=== PATIENT | male | born 1975 | race Caucasian/White ===

== ENCOUNTER 2022-05-05 13:14 | Outpatient (CLI) | payer MEDICARE, SELFPAY | END 2022-05-05 13:15 | disposition home or self-care (01) | PROVIDERS: Visit Provider Neurological Surgery | DX: M51.26 Other intervertebral disc displacement, lumbar region (principal); Z01.818 Encounter for other preprocedural examination | CPT/HCPCS: 36415; 86850; 86900; 86901 ==

== ENCOUNTER 2022-05-17 01:54 | Day surgery (SDC) | payer MEDICARE, SELFPAY ==
[2022-05-04 11:16] VITALS: BMI 36.5
--- NOTE | 2022-05-04 11:48 | PC.NURSE ---
Report to the Outpatient Waiting Room, entrance under the green pavilion located off [facility], at time 0600 on date _05/17/22. Planned Procedure Time: 0730. Time changes happen often and if your time is changed the preop area will call you the afternoon before. - You and your visitor will be asked to self-screen and do not enter if you have any COVID symptoms. - Only one visitor is requested with a max of two and NO children visitors are allowed at this time. - The patient visitor may be requested to leave or wait in car when not with patient due to distancing restrictions. - A mask is optional within the hospital at this time. Patients may have clear liquids (water, carbonated beverages, clear teas, apple juice) until 3 hours prior to surgery with a maximum of 20 ounces. - No food from midnight until time of surgery - Infants may have breast milk until 4 hours before surgery, formula 6 hours prior to surgery. - Children will be allowed to drink immediately following surgery. If applicable, please bring a bottle or sippy cup to assist with drinking. Juice, water, soda, and popsicles are readily available. For infants on formula, please bring formula the day of surgery. Pacifiers are allowed. Take the following medications with a SIP of water the morning of surgery: _gabapentin_ DO NOT STOP ANY OF YOUR OTHER PRESCRIPTION MEDICATIONS PRIOR TO SURGERY ?EXCEPT THE FOLLOWING Medications to discontinue per physician _vitamins Date to take last dose_05/14/22 Please no make-up, nail maltese, hairspray, perfume, deodorant, or body powder the day of surgery. No jewelry (including any body piercings) or valuables the day of surgery, leave them at home. Please take a shower or bath the night before, or the morning of, surgery with an antibacterial soap. Wear comfortable, loose fitting clothing. Children are encouraged to wear pajamas. - Jewelry must be removed prior to entering the operating room. Rings and piercings that are not removed may be cut off. - The hospital will not accept responsibility for valuables. - Please leave all valuables, including medications, at home the day of surgery. If you are going home after surgery, a licensed transport truck driver must drive you home. - NO public transportation without another adult if you receive anesthesia. - We recommend that an adult stay with you for 24 hours following discharge. - We also recommend that you do not drive, make important decision, drink alcoholic beverages, or take any drugs that were not prescribed by your health care provider for at least 24 hours after your discharge time. For Pediatric surgeries, we recommend two adults accompany the child home. Follow any additional instructions given to you from your surgeon. If you or anyone in your household have experienced Covid symptoms in the past week, please notify your surgeon or the nurse liaison at the phone number below for possible testing. Telephone instructions given to Adolfo Ruiz and asked if any additional questions and then verbalized understanding. Patient advised to call surgeon office or pre surgery nurse liaison [phone] if any additional questions.
[2022-05-17] VITALS (13 sets, daily range): BP systolic 100–147; BP diastolic 53–86; PULSE 78–92; RESP 12–17; TEMP 36.1–36.5; O2SAT 90–100
--- NOTE | ~2022-05-17 | XR_ITS ---
EXAMINATION: XR fluoroscopy no charge DATE: 05/17/2022 09:44 INDICATION: Herniated disc at L3-L4. TECHNIQUE: A single intraoperative lateral fluoroscopic view of the lumbar spine was obtained. I was not present. Fluoroscopy exposure time was 3 seconds. COMPARISON: None. FINDINGS: There is an instrument overlying the posterior elements at L3. IMPRESSION: 1. Instrument overlying the posterior elements at L3. Reviewed, dictated and finalized at location A. ARC OPERATOR
[2022-05-17] MEDS: LACTATED RINGERS 1,000 ML 30 ML IV CONT ×2 (06:35→10:50)
--- NOTE | 2022-05-17 07:05 | P.PNAN_ITS ---
Anes - Initial Pre Proc Eval Procedure: Operation Date: 05/17/22 07:30 Proposed Procedures p Right L3-4 Far Lateral Microdiscectomy - Jesus Warren MD Date/Time: 05/17/22 07:05 Surgeon: Jesus Warren MD Pre Op Diagnosis: Right L3-4 Far Lateral Herniated Disc Patient Data Age: 46 Gender: M Height: 1.73 m Weight: 103.6 kg Last Vital Signs Temp 97.7 F 05/17/22 06:40 Pulse 79 05/17/22 06:40 Resp 16 05/17/22 06:40 BP 123/86 05/17/22 06:40 Pulse Ox 98 05/17/22 06:40 O2 Del Method Room Air 05/17/22 06:40 Allergies Allergy/AdvReac Type Severity Reaction Status Date / Time adhesive Allergy Mild Rash Verified 03/07/22 13:25 iodine Allergy Mild Rash Verified 03/07/22 13:25 NSAIDS (Non-Steroidal AdvReac Severe Anaphylaxis Verified 05/04/22 11:50 Anti-Inflamma Home Medications Medication Instructions Recorded Confirmed Type alprazolam 0.5 mg tablet 0.5 mg PO QHS PRN Anxiety 01/10/22 05/17/22 History gabapentin 400 mg capsule 400 mg PO BID 01/10/22 05/17/22 History hydrocodone 2.5 mg-acetaminophen 1 tablet PO QHS PRN Pain 01/10/22 05/17/22 History 325 mg tablet meclizine 25 mg tablet 25 mg PO BID PRN Vertigo 01/10/22 05/17/22 History rosuvastatin 10 mg tablet 10 mg PO DAILY 01/10/22 05/17/22 History montelukast 10 mg tablet 10 mg PO DAILY 05/04/22 05/17/22 History multivitamin,yu-ywoj-dxmqictc 1 tablet PO DAILY 05/04/22 05/17/22 History Patient hx anesthesia problems: none Family hx anesthesia problems: none Results Review: All pre-operative results and documents have been reviewed as part of the pre- operative evaluation. [facility] Past Medical History Medical History Anxiety Asthma High cholesterol Family History Family History Other Asthma Depression Heart disease Hypertension Social History Social History Smoking status: Current some day smoker Smokeless tobacco user: chewing tobacco Alcohol intake: never Substance use: never Substance use type: does not use Living arrangements: with family Spiritual care concerns: No Anes - Eval Final PreProcedure Day of Procedure 05/17/22 07:05 Patient weight: obese Heart: regular rate and rhythm Lungs: clear to auscultation Airway: Mallampati scale class II Neurological: alert and oriented Last oral intake: >/= 8 hours ASA classification: III Emergent: no Anesthetic plan: proceed Anesthesia type and monitoring: general ETT and standard monitoring Results Review: All pre-operative results and documents have been reviewed as part of the pre- operative evaluation. Informed Consent: The patient's anesthetic plan and its attendant risks and benefits were discussed with the patient/family/POA. Questions were solicited and answers prov ided to the satisfaction of the patient/family/POA.
--- NOTE | 2022-05-17 07:38 | PM.IMHP ---
H&P: HPI History of Present Illness Date/Time: 05/17/22 07:38 Chief Complaint: Adolfo is a 46-year-old gentleman with back and leg pain related to disc herniation in the foramen on the right at L3-4 presents for L3-4 far lateral microscopic lumbar diskectomy. He has not changed appreciably since we last saw him. He is not having any bowel or bladder difficulty. He is not have specific muscle group weakness or dermatomal numbness. Review of Systems Review of Systems: Patient denies shortness of breath, cough, fever, chills, nausea, vomiting, weight loss, weight gain, chest pain, dysuria. He has back and leg pain as above. His review of systems otherwise negative on 12 systems except as noted elsewhere. [facility] Past Medical History Medical History Anxiety Asthma High cholesterol Family History Family History Other Asthma Depression Heart disease Hypertension Social History Social History Smoking status: Current some day smoker Smokeless tobacco user: chewing tobacco Alcohol intake: never Substance use: never Substance use type: does not use Living arrangements: with family Spiritual care concerns: No Meds Home Medications and Allergies Home Medications Medication Instructions Recorded Confirmed Type alprazolam 0.5 mg tablet 0.5 mg PO QHS PRN Anxiety 01/10/22 05/17/22 History gabapentin 400 mg capsule 400 mg PO BID 01/10/22 05/17/22 History hydrocodone 2.5 mg-acetaminophen 1 tablet PO QHS PRN Pain 01/10/22 05/17/22 History 325 mg tablet meclizine 25 mg tablet 25 mg PO BID PRN Vertigo 01/10/22 05/17/22 History rosuvastatin 10 mg tablet 10 mg PO DAILY 01/10/22 05/17/22 History montelukast 10 mg tablet 10 mg PO DAILY 05/04/22 05/17/22 History multivitamin,vc-hemr-tszrfchg 1 tablet PO DAILY 05/04/22 05/17/22 History Allergies Allergy/AdvReac Type Severity Reaction Status Date / Time adhesive Allergy Mild Rash Verified 03/07/22 13:25 iodine Allergy Mild Rash Verified 03/07/22 13:25 NSAIDS (Non-Steroidal AdvReac Severe Anaphylaxis Verified 05/04/22 11:50 Anti-Inflamma Vital Signs Vital Signs - 24 hr 05/17/22 06:40 Temperature 97.7 F Pulse Rate 79 Respiratory Rate 16 Blood Pressure 123/86 Pulse Oximetry 98 Oxygen Delivery Room Air Exam Narrative: Strength is 5 5 in all muscle groups of bilateral lower extremities. Sensation is intact to light touch throughout the lower extremities. Breathing is nonlabored. He speaks in complete sentences without difficulty. Regular rate and rhythm Assessment and Plan Assessment and plan (1) Lumbar disc herniation: Code(s): M51.26 - Other intervertebral disc displacement, lumbar region Status: Acute Assessment and Plan: Adolfo is a 46-year-old gentleman with back and leg pain related to a disc herniation presents for right L3-4 far lateral foraminotomy and microdiskectomy. I again described to him that operation, its risks, potential benefits, the operative postoperative course in detail and answered all his questions personally. He indicates understanding and elects proceed with the operation.
--- NOTE | 2022-05-17 07:40 | WPDHPUPDATE1 ---
History and Physical Update Update Date/Time: 05/17/22 07:40 History and Physical has been reviewed, including an updated exam of the patient. There are NO changes in the patient's condition. Risks, benefits, and alternatives have been discussed and questions answered. Patient agrees to proceed with procedure.
[2022-05-17] MEDS: ceFAZolin 2 GM/D5W 50 ML 2 GM/50 ML BAG IVPB (07:47)
[2022-05-17] MEDS: LIDO 1%/EPINEPHRINE 1:100,000 20 ML VIAL 10 ML INFILTRATE (08:31)
--- NOTE | 2022-05-17 09:17 | P.OP_ITS ---
Procedure Note - Detailed Date of Procedure 05/17/22 Pre-op Diagnosis Right L3-4 Far Lateral Herniated Disc Post-op Diagnosis Same Procedure Performed Right L3-4 far lateral microscopic lumbar diskectomy Surgeon Jesus Warren MD Anesthesia General Description of Procedure the patient was brought to the operating room in the supine position, was sedated, intubated and placed under general anesthesia in routine fashion. He was then turned into the prone position on a Mayo frame. The area of operatio n on his back was examined, marked for incision, prepped and draped in routine sterile fashion. Incision was marked over the L3 and L4 spinous processes in the midline. This area was injected with 0.5% lidocaine with [id number] epinephrine. Intravenous antibiotics given prior to incision. Incision was made with a 10 blade scalpel down to the lumbodorsal fascia. A subperiosteal dissection of muscle soft tissue away from the spinous process and lamina on the right at L3-4 was performed with a subperiosteal elevator and Bovie cautery. A verifying x-rays obtained to verify the level of operation. A Midas Gaetano drill was used to resect the lateral pars and facet until the soft contents of the foramen were encountered. Under microscopy the yellow ligament was lifted and removed piecemeal using Kerrison punches. This exposed the nerve root below. This was reflected superiorly. The disc spaces entered using 11 blade scalpel. Much of the disc herniation was found to be calcified. The refore curved curette, Cardenas rongeur, pituitary rongeur and Reuben curette were used to push free and removed fragments of hard disc herniation from beneath the nerve. These were removed using a rongeur as. These maneuvers were performed until a nerve hook could be placed proximally and distally to confirm lack of compression. The wound was then copiously irrigated with bacitracin irrigation all bleeding stopped with bipolar and Bovie cautery and Gelfoam thrombin powder. Wound was then closed in layered fashion with 2-0 Vicryl interrupted sutures in the lumbodorsal fascia and Aj's layer. 3-0 Vicryl buried interrupted sutures were placed in the dermis and the skin was closed with a running 4-0 Monocryl subcuticular stitch and dressed with Dermabond. The patient was allowed to wake up in the operating room and was taken to the recovery room in stable condition. There were no immediate complications of this operation. All counts were reported correct at the end of the case. Blood loss was 25 cc. The patient is neurologically at his baseline postoperatively. CPT codes: 53071 Estimated Blood Loss 25 IV Fluids 1,000 Complications None Condition Stable Disposition PACU [facility] Billing Surgery - Charge Forward: Surgery Billing
[2022-05-17] MEDS: fentaNYL CITRATE INJ (*CRX) 100 MCG/2 ML VIAL 25 MCG IV PUSH ×4 (09:53→10:04)
--- NOTE | 2022-05-17 10:00 | SUR.PHASEI ---
1000: Simple mask removed.
[2022-05-17] MEDS: oxyCODONE HCL (*CRX) 5 MG TAB IR PO (11:06)
--- NOTE | 2022-05-17 11:35 | SUR.PHASEI ---
Patient having trouble maintaining 02 Sats above 90% on R.A. Dr. English said to try an I.S. and give it more time. Dr. Scotts aware and said just let him know if patient needs to be admitted.
--- NOTE | 2022-05-17 12:09 | SUR.PHASEII ---
DR. ALTAMIRANO AWARE THAT PATIENT'S OXYGEN SAT'S ARE >95% ON RA X 10 MINUTES. WILL CONTINUE TO MONITOR X 10 MINUTES AND SEND HOME IF SATURATIONS REMAIN >95%.
== END 2022-05-17 12:41 | disposition home or self-care (01) ==
PROVIDERS: Visit Provider Neurological Surgery
PROC: (CPT 63030; principal; 2022-05-17 07:30)
DX: M51.26 Other intervertebral disc displacement, lumbar region (principal); J45.909 Unspecified asthma, uncomplicated; F41.9 Anxiety disorder, unspecified; E78.00 Pure hypercholesterolemia, unspecified; F17.220 Nicotine dependence, chewing tobacco, uncomplicated; E66.9 Obesity, unspecified; Z68.34 Body mass index [BMI] 34.0-34.9, adult
CPT/HCPCS: 63056; 36415; 86850; 86900; 86901; 99199; A9270; J0330; J0690; J1100; J1170; J1200; J2250; J2405; J2704; J2710; J3010; J7120

== ENCOUNTER 2023-07-11 12:59 | Outpatient (CLI) | payer MEDICARE, SELFPAY ==
--- NOTE | ~2023-07-11 | XR_ITS ---
XR lumbar spine min 4V 07/11/2023 13:20 Indication: Radiculopathy. Back pain. Procedure: 4 views lumbar spine including flexion/extension views Comparison: No prior studies for comparison. Findings: Normal lumbar lordosis. No alteration of alignment with flexion/extension. There is disc na rrowing at all lumbar levels, most advanced at L3-4 and L5-S1. No acute fracture, subluxation or spon dylolisthesis. There are ventral osteophytes at multiple levels. There is hypertrophy of the spinous processes of the mid and lower lumbar spine. Mild levoscoliosis. There are cholecystectomy clips. Ped icles intact. Impression: 1: Moderate lumbar spondylosis with levoscoliosis. Reviewed, dictated and finalized at location A. Impression: 1: Moderate lumbar spondylosis with levoscoliosis.
== END 2023-07-11 13:00 | disposition home or self-care (01) ==
LOC: ANHIMG 13:01
PROVIDERS: Visit Provider Neurological Surgery
DX: M51.26 Other intervertebral disc displacement, lumbar region (principal); M54.16 Radiculopathy, lumbar region; M43.06 Spondylolysis, lumbar region; M41.86 Other forms of scoliosis, lumbar region
CPT/HCPCS: 72110

== ENCOUNTER 2024-12-20 12:56 | Outpatient (CLI) | payer MEDICARE, SELFPAY ==
--- OUTSIDE RECORDS SUMMARY | 2024-12-20 13:01 | XMS_ITS | Encounter Summary ---
Author Organization [facility] Address [address] [facility] [place] [address] Phone Care Team Providers Care Striker Off Name Role Phone Adam Paul MD Primary Care Provider [phone] Robby Salinas MD Unavailable Rayshawn Umanzor MD Unavailable [phone] Ra Shell MD Unavailable Reason for Visit * Reason Comments Medication Refill Encounter Details Date Type Department Care Team (Late st Contact Info) Description 02/18/2021 Refill [facility] - Family Medicine [facility] [address] [place] [id number] Adam Paul MD [address] [address] Medication Refill Social History Tobacco Use Types Packs/Day Years Used Date Smoking Tobacco: Never Smokeless Tobacco: Current Chew Comments:one can a day, sinc e 1995 Alcohol Use Standard Drinks/Week Comments Not Currently 0 (1 standard drink = 0.6 oz pur e alcohol) rare PHQ-2 Answer Date Recorded Total Score - Questions 1-9 0 11/02 Sexually Active Control Partners Comments Yes Female Sex and Gender Information Value Date Recorded Sex Assigned at Not on file Legal Sex Male 9:58 PM CDT Gender Identity Not on file Sexual Orientation Not on file COVID-19 Exposure Response Date Recorded In the last month, have you been in contact with someone who was confirmed or suspected to have Coronavirus / COVID-19? No / Unsure 01/26/2021 8:13 AM CDT documented as of this encounter Miscellaneous Notes * Telephone Encounter - Lisbeth Kapoor RN - 02/18/2021 11:57 AM CST Medication failed the protocol, provider to review and approve the medication order if appropriate. Requested Prescriptions Pending Prescriptions Disp Refills gabapentin (NEURONTIN) 400 MG Capsule [Pharmacy Med Name: GABAPENTIN 400 MG CAPSULE] 90 Capsule 5 Sig: TAKE 1 CAPSULE BY MOUTH THREE TIMES A DAY Not Delegated - Anticonvulsants Protocol Failed - 02/18/2021 11:21 AM Failed - This refill cannot be delegated Passed - Visit with relevant provider in past 12 months or upcoming 90 days Recent Visits Date Type Provider Dept 01/22/21 Office Visit Adam Paul MD [facility] 10/22/20 Office Visit Adam Paul MD [facility] 03/09/20 Office Visit Adam Paul MD [facility] Showing recent visits within past 365 days and meeting all other requirements Future Appointments Date Type Provider Dept 04/28/21 Appointment Adam Paul MD [facility] Showing future appointments within next 90 days and meeting all other requirements 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 documented in this encounter Plan of Treatment Upcoming Encounters Date Type Department Care Team (Late st Contact Info) Description 12/23/2024 11:15 AM CDT Office [facility] - [place] [address] [facility] [place] [address] Adam Paul MD [id number] [place] [address] 01/31/2025 11:45 AM CDT [facility] [address] [facility] [place] [phone] Rayshawn Umanzor MD [address] [facility] [address] [place] [address] documented as of this encounter Visit Diagnoses Not on filedocumented in this encounter Additional Health Concerns Assessment Noted Time PHQ-9 Depression Total Score: 0 11/26/19 20 9:00 AM CDT documented as of this encounter Care Teams Striker Off Relationship Specialty Start Date End Date Adam Paul MD [address] [facility] [address] [place] [address] PCP - General Family Medicine 02/19/15 Robby Salinas MD [address] [facility] [address] [place] [address] Consulting Physician Orthopaedic Sports Medicine 04/18/16 Rayshawn Umanzor MD [address] [facility] [address] [place] [address] Consulting Physician Urology 03/17/23 Ra Shell MD [facility] [facility] [address] [place] [address] Consulting Physician Colon and Rectal Surgery 06/08/23 documented as of this encounter
--- OUTSIDE RECORDS SUMMARY | 2024-12-20 13:01 | XMS_ITS | Encounter Summary ---
Author Organization [facility] Address [address] [facility] [facility] [place] [place] [address] Phone Care Team Providers Care Bonbon Cream Warmer Name Role Phone Adam Paul MD Primary Care Provider [phone] Robby Salinas MD Unavailable Rayshawn Umanzor MD Unavailable [phone] Ra Shell MD Unavailable Reason for Visit * Reason Comments Medication Refill Encounter Details Date Type Department Care Team (Late st Contact Info) Description 06/25/2021 Refill [facility] - Family Medicine [facility] [address] [place] [phone] Adam Paul MD [address] [address] Medication Refill Social History Tobacco Use Types [...] have Coronavirus / COVID-19? 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 Requested Prescriptions Pending Prescriptions Disp Refills ALPRAZolam (XANAX) 0.5 MG Tablet [Pharmacy Med Name: ALPRAZOLAM 0.5 MG TABLET] 90 Tablet 0 Sig: TAKE 1 TABLET BY MOUTH 3 TIMES DAILY NEEDED FOR ANXIETY. Not Delegated - Off Protocol Failed - 06/25/2021 9:58 AM Failed - This refill cannot be delegated Passed - Visit with relevant provider in past 12 months or upcoming 90 days Recent Visits Date Type Provider Dept 04/28/21 Office Visit Adam Paul MD [facility] 01/22/21 Office Visit Adam Paul MD [facility] 10/22/20 Office Visit Adam Paul MD [facility] Showing recent visits within past 365 days and meeting all other requirements Future Appointments Date Type Provider Dept 07/28/21 Appointment Adam Paul MD [facility] Showing future appointments within next 90 days and meeting all other requirements documented in this encounter Plan of Treatment Upcoming Encounters Date Type Department Care Team (Late st Contact Info) Description 12/23/2024 11:15 AM CDT Office Visit [facility] - Family Medicine - [place] [address] [place] [address] Adam Paul MD [address] [facility] [address] [place] [address] 01/31/2025 11:45 AM CDT [facility] [address] [place] [address] Rayshawn Umanzor MD [address] [facility] [address] [place] [address] documented as of this encounter Visit Diagnoses Diagnosis Anxiety Anxiety state, unspecified documented in this encounter Additional Health Concerns Assessment Noted Time PHQ-9 Depression Total Score: 0 11/26/19 20 9:00 AM CDT documented as of this encounter Care Teams Bonbon Cream Warmer Relationship Specialty Start Date End Date Adam Paul MD [address] [facility] [facility] [address] [place] [address] PCP - General Family Medicine 02/19/15 Robby Salinas MD [address] [facility] [address] [place] [address] Consulting Physician Orthopaedic Sports Medicine 04/18/16 Rayshawn Umanzor MD [address] [facility] [address] [place] [address] Consulting Physician Urology 03/17/23 Ra Shell MD [address] [facility] [address] [place] [address] Consulting Physician Colon and Rectal Surgery 06/08/23 documented as of this encounter
--- OUTSIDE RECORDS SUMMARY | 2024-12-20 13:01 | XMS_ITS | Encounter Summary ---
Author Organization [facility] Address [address] [facility] [place] [address] Phone Care Team Providers Care Activities Therapist Name Role Phone Adam Paul MD Primary Care Provider [phone] Robby Salinas MD Unavailable Rayshawn Umanzor MD Unavailable [phone] Ra Shell MD Unavailable Reason for Visit * Reason Comments Medication Refill Encounter Details Date Type Department Care Team (Late st Contact Info) Description 03/20/2021 Refill [facility] - Family Medicine [facility] #2 [place] [phone] Edison Sy, OIL DRILLER, JOINTER OPERATOR #[address] [address] Medication Refill Social History Tobacco Use Types [...] on file Sexual Orientation Not on file documented as of this encounter Miscellaneous Notes * Telephone Encounter - Lisbeth Kapoor RN - 03/22/2021 3:20 PM CST PDMP 12/23/20 Medication failed the protocol, provider to review and approve the medication order if appropriate. Requested Prescriptions Pending Prescriptions Disp Refills ALPRAZolam (XANAX) 0.5 MG Tablet [Pharmacy Med Name: ALPRAZOLAM 0.5 MG TABLET] 90 Tablet 0 Sig: TAKE 1 TAB BY MOUTH 3 TIMES DAILY NEEDED FOR ANXIETY. 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 Plan of Treatment Upcoming Encounters Date Type Department Care Team (Late st Contact Info) Description 12/23/2024 11:15 AM CDT Office Visit [facility] - Family Medicine - [place] [address] [place] [address] Adam Paul MD [address] [place] [address] 01/31/2025 11:45 AM CDT Office Visit [facility] [address] [place] [address] Rayshawn Umanzor MD [address] [facility] [address] [place] [address] documented as of this encounter Visit Diagnoses Diagnosis Anxiety Anxiety state, unspecified documented in this encounter Additional Health Concerns Assessment Noted Time PHQ-9 Depression Total Score: 0 11/26/19 20 9:00 AM CDT documented as of this encounter Care Teams Activities Therapist Relationship Specialty Start Date End Date Adam Paul MD [address] [facility] [address] [place] [address] PCP - General Family Medicine 02/19/15 Robby Salinas MD [address] [facility] [address] [place] [address] Consulting Physician Orthopaedic Sports Medicine 04/18/16 Rayshawn Umanzor MD [address] [facility] [address] [place] [address] Consulting Physician Urology 03/17/23 Ra Shell MD [address] [facility] [address] [place] [address] Consulting Physician Colon and Rectal Surgery 06/08/23 documented as of this encounter
--- OUTSIDE RECORDS SUMMARY | 2024-12-20 13:01 | XMS_ITS | Encounter Summary ---
Author Organization [facility] Address [address] [facility] [place] [address] Phone Care Team Providers Care Product Development Worker Name Role Phone Adam Paul MD Primary Care Provider [phone] Robby Salinas MD Unavailable Rayshawn Umanzor MD Unavailable [phone] Ra Shell MD Unavailable Reason for Visit * Reason Comments Medication Refill Encounter Details Date Type Department Care Team (Late st Contact Info) Description 06/16/2021 Refill [facility] Medical [facility] - [facility] [place] [phone] Adam Paul MD #[address] [address] Medication Refill Social History Tobacco Use Types [...] COVID-19? No / Unsure 06/09/2021 12:56 PM NETWORK OPERATIONS TECHNICIAN documented as of this encounter Miscellaneous Notes * Telephone Encounter - Lisbeth Kapoor RN - 06/16/2021 11:56 AM CDT Medication warning Per nursing clinical judgement, provider to review and approve the medication(s) order(s) if appropriate. Requested Prescriptions Pending Prescriptions Disp Refills montelukast (SINGULAIR) 10 MG Tablet [Pharmacy Med Name: MONTELUKAST SOD 10 MG TABLET] 90 Tablet 3 Sig: TAKE 1 TABLET BY MOUTH EVERY DAY IN THE EVENING Leukotriene Inhibitors Protocol Passed - 06/16/2021 12:31 AM Passed - Visit with relevant provider in [...] Description 12/23/2024 11:15 AM CDT Office Visit [facility] Medical Group - Family Medicine - [place] [address] [place] [address] Adam Paul MD [address] [place] [address] 01/31/2025 11:45 AM CDT [facility] [address] [place] [address] Rayshawn Umanzor MD [address] [facility] [facility] [address] [place] [address] documented as of this encounter Visit Diagnoses Not on filedocumented in this encounter Additional Health Concerns Assessment Noted Time PHQ-9 Depression Total Score: 0 11/26/19 20 9:00 AM CDT documented as of this encounter Care Teams Product Development Worker Relationship Specialty Start Date End Date Adam Paul MD [address] [facility] [address] [place] [address] PCP - General Family Medicine 02/19/15 Robby Salinas MD #[address] [facility] [address] [place] [address] Consulting Physician Orthopaedic Sports Medicine 04/18/16 Rayshawn Umanzor MD [address] [facility] [address] [place] [address] Consulting Physician Urology 03/17/23 Ra Shell MD [address] [facility] [address] [place] [address] Consulting Physician Colon and Rectal Surgery 06/08/23 documented as of this encounter
--- OUTSIDE RECORDS SUMMARY | 2024-12-20 13:01 | XMS_ITS | Clinical Summary ---
Author Organization [facility] Address [address] [facility], [address] [address] Phone Care Team Providers Care Math Teacher Name Role Phone Adam Paul MD Primary Care Provider [phone] Robby Salinas MD Unavailable Rayshawn Umanzor MD Unavailable [phone] Ra Shell MD Unavailable Allergies Active Allergy Reactions Criticality Noted Date Comments Aspirin Anaphylaxis High Ibuprofen Hives,Swelling 04/20/2015 Throat swells shut Naproxen Hives,Swelling 04/20/2015 Throat swells shut Nsaids Hives,Swelling High 08/20/2015 Throat swells shut Other Itching Low 05/13/2016 Skin glue made skin red & itchy Skin glue made skin red & itchy Skin glue made skin red & itchy Skin glue made skin red & itchy Skin glue made skin red & itchy Povidone Iodine Hives,Rash Medium 04/06/2017 Blisters Blisters Blisters Tobramycin-Dexamethasone Rash Medium Tolmetin Hives,Swelling High 08/20/2015 Throat swells shut Throat swells shut Throat swells shut Throat swells shut Throat swells shut Throat swells shut Throat swells shut Throat swells shut Medications Naloxone HCl 4 MG/0.1ML Liquid 1 [place] by Nasal route as needed. 11/11/19 21 Active HYDROcodone-acet aminophen (NORCO) 10-325 MG Tablet 3 times daily. CHRONIC PAIN 11/24/19 23 Active montelukast (SINGULAIR) 10 MG Tablet TAKE 1 TABLET BY MOUTH EVERY DAY IN THE EVENING 90 Tablet 3 05/29/19 24 Active omeprazole (PriLOSEC) 20 MG CAPSULE DELAYED RELEASEIndicatio ns:Esophagitis TAKE 1 CAPSULE BY MOUTH EVERY DAY 90 Capsule 1 09/20/19 24 Active albuterol 108 (90 Base) MCG/ACT Aerosol SolutionIndicati ons:Mild intermittent asthma without complication take 1-2 Puffs by inhalation every 6 hours as needed for Wheezing. 6.7 g 2 11/28/19 24 Active meclizine (ANTIVERT) 25 MG Tablet TAKE 1 TABLET BY MOUTH EVERY 12 HOURS NEEDED FOR DIZZINESS OR NAUSEA. 60 Tablet 1 12/09/19 24 Active gabapentin (NEURONTIN) 400 MG Capsule TAKE 1 CAPSULE BY MOUTH THREE TIMES A DAY 90 Capsule 2 05/14/19 25 Active desmopressin (DDAVP) 0.2 MG Tablet Take 1 Tablet by mouth nightly. Limit intake of liquids after the evening meal. 90 Tablet 3 06/05/19 25 Active rOPINIRole (REQUIP) 0.25 MG Tablet TAKE 1 TABLET BY MOUTH EVERY DAY AT NIGHT 90 Tablet 1 10/10/19 25 Active clotrimazole-bet amethasone (LOTRISONE) 1-0.05 % Cream APPLY TOPICALLY TWICE DAILY FOR 2 WEEKS FOR SCROTAL ITCHING 30 g 12/13/19 25 Active tamsulosin (FLOMAX) 0.4 MG CapsuleIndicatio ns:BPH with obstruction/lowe r urinary tract symptoms TAKE 1 CAPSULE BY MOUTH EVERY DAY 90 Capsule 3 12/19/19 25 Active rosuvastatin (CRESTOR) 10 MG Tablet TAKE 1 TABLET BY MOUTH EVERY DAY 90 Tablet 3 12/19/19 25 Active tamsulosin (FLOMAX) 0.4 MG CapsuleIndicatio ns:BPH with obstruction/lowe r urinary tract symptoms TAKE 1 CAPSULE BY MOUTH EVERY DAY 90 Capsule 3 12/20/19 24 025 Discontinued rosuvastatin (CRESTOR) 10 MG Tablet TAKE 1 TABLET BY MOUTH EVERY DAY 90 Tablet 3 12/20/19 24 025 Discontinued clotrimazole-bet amethasone (LOTRISONE) 1-0.05 % Cream APPLY TOPICALLY TWICE DAILY FOR 2 WEEKS FOR SCROTAL ITCHING 30 g 04/16/19 25 025 Discontinued Active Problems Problem Noted Date Diagnosed Date Nausea 03/13/2024 Gastroesophageal reflux disease 03/13/2024 RLS (restless legs syndrome) 03/13/2024 Low testosterone 05/04/2023 BPH with obstruction/lower urinary tract symptom s 12/26/2022 Enlarged prostate 12/26/2022 Esophagitis 09/18/2022 Asbestos exposure 08/03/2022 Daytime sleepiness 08/03/2022 Bilateral hearing loss 07/28/2021 Tinnitus of both ears 07/28/2021 Vertigo 07/28/2021 Noncompliance 07/28/2021 Fatigue 01/22/2021 Decreased libido 01/22/2021 Prostate pain 03/10/2020 Chronic pain syndrome 11/26/2019 Rectal pain 11/26/2019 Mild intermittent asthma without complication Wheezing 04/18/2019 Chronic narcotic dependence 04/18/2019 Moderate persistent asthma 04/18/2019 Chronic neck pain 06/05/2018 Chronic joint pain 06/05/2018 Obesity (BMI 30-39.9) 01/31/2018 Chronic narcotic use 06/30/2017 Chronic prescription benzodiazepine use 07/01/19 18 Tobacco abuse 05/25/2016 Right rotator cuff tendonitis 05/13/2016 Elevated liver enzymes 05/06/2016 Chronic right shoulder pain 05/06/2016 Spinal cord lesion 04/18/2016 Carpal tunnel syndrome 04/18/2016 Cervical spondylosis 04/18/2016 Kidney stone 08/20/2015 History of kidney stones 07/27/2015 Adjustment disorder with mixed anxiety and depre ssed mood 07/09/2015 Insomnia 07/09/2015 Hyperlipidemia 05/28/2015 Anxiety 05/14/2015 B12 deficiency 05/14/2015 Vitamin D deficiency 05/14/2015 Encounters Date Type Department Care Team Description 12/17/2024 Refill [facility] #2 [place] [phone] Adam Paul MD Medication Refill 11/27/2024 Refill [facility] #2 [place] [address] Rayshawn Umanzor MD Medication Refill 10/08/2024 Refill [facility] #2 [place] [address] Adam Paul MD Medication Refill from Last 3 Months Immunizations Immunization Administration Dates Next Due Influenza Vaccine greater than 3 yrs 01/11/2020 Influenza Vaccine, Quadrivalent, PF 01/11/2020 Influenza, Seasonal, Injectable, Undefined 01/10 Family History Medical History Relation Name Comments Anxiety disorder Daughter Congestive Heart Failure Father Heart Attack Father Heart Surgery Father Hypertension Father No Known Problems Half-Brother 1 mary carmen No Known Problems Half-Brother 2 jennifer Diabetes Half-Sister 1 Johanna No Known Problems Half-Sister 2 obi Breast Cancer Maternal Aunt Cancer Maternal Grandmother Lung Cancer Maternal Grandmother Stroke Maternal Uncle Anxiety disorder Mother Hypertension Mother Heart Disease Paternal Grandfather Heart Disease Paternal Grandmother Anxiety disorder Son 1 Anxiety disorder Son 2 Relation Name Status Comments Daughter Alive Father Alive Half-Brother 1 mary carmen Alive Half-Brother 2 jennifer Alive Half-Sister 1 Johanna Alive Half-Sister 2 obi Alive Maternal Aunt Maternal Grandmother Maternal Uncle Mother Alive Paternal Grandfather Paternal Grandmother Son 1 Alive Son 2 Alive Social History Tobacco Use Types Packs/Day Years Used Date Smoking Tobacco: Never Smokeless Tobacco: Current Chew Tobacco Cessation:Ready to Q uit: No; Counseling Given: Yes Comments:one can a day, since 1995 Alcohol Use Standard Drinks/Week Comments Not Currently 0 (1 standard drink = 0.6 oz pur e alcohol) rare [facility] Utilities Answer Date Recorded In the past 12 months has [employer], gas, oil, or water [employer] threatened to shut off services in your home? No 05/04/2023 Social Connection and Isolation Panel Answer Date Recorded In a typical week, how many times do you talk on the phone with family, friends, or neighbors? More than three times a week 05/04/2023 How often do you get togethe r with friends or relatives? Twice a week 05/04/2023 Attends Anglican Services Not on file 05/04 Do you belong to any clubs o r organizations such as jehovah's witness groups, unions, fraternal or athletic groups, or school groups? No 05/04/2023 Attends Club or Organization Meetings Not on julio e 05/04/2023 Marital Status Not on file 05/04/2023 AUDIT-C Answer Date Recorded Q1: How often do you have a drink containing alc ohol? 2-4 times a month 05/04/2023 Q2: How many drinks containi ng alcohol do you have on a typical day when you are drinking? 1 or 2 05/04/2023 Q3: How often do you have si x or more drinks on one occasion? Never 05/04/2023 Overall Financial Resource Strain (CARDIA) Answe r Date Recorded How hard is it for you to pa y for the very basics like food, housing, medical care, and heating? Not hard at all 05/04/2023 PHQ-2 Answer Date Recorded Total Score - Questions 1-9 0 05/05 [facility] - Occupational Stress Questionnaire Answer Date Recorded Do you feel stress - tense, restless, nervous, or anxious, or unable to sleep at night because your mind is troubled all the time - these days? Not at all 05/04/2023 Exercise Vital Sign Answer Date Recorde d On average, how many days pe r week do you engage in moderate to strenuous exercise (like a brisk walk)? 0 days Minutes of Exercise per Session Not on file 05/04/2023 Hunger Vital Sign Answer Date Recorded Within the past 12 months, y ou worried that your food would run out before you got the money to buy more. Never true 05/04/19 24 Within the past 12 months, t he food you bought just didn't last and you didn't have money to get more. Never true 05/04/2023 PRAPARE - Transportation Answer Date Re corded In the past 12 months, has l ack of transportation kept you from medical appointments or from getting medications? No 04/2023 In the past 12 months, has l ack of transportation kept you from meetings, work, or from getting things needed for daily living? No 05/04/2023 Housing Stability Vital Sign Answer Rafael e Recorded In the last 12 months, was t here a time when you were not able to pay the mortgage or rent on time? No 05/04/2023 In the last 12 months, how many places have you lived? 1 05/04/2023 In the last 12 months, was t here a time when you did not have a steady place to sleep or slept in a fpc (including now)? No 05/04/2023 Education Answer Date Recorded What is the highest level of school you have completed or the highest degree you have received? 12th grade 08/03/2022 Sexually Active Control Partners Comments Yes Female Sex and Gender Information Value Date Recorded Sex Assigned at Not on file Legal Sex Male 9:58 PM CDT Gender Identity Not on file Sexual Orientation Not on file Last Filed Vital Signs Vital Sign Reading Time Taken Comments Blood Pressure 120/86 05/27/2024 8:11 AM INVESTMENT BANKING ANALYST Pulse 97 05/27/2024 8:11 AM INVESTMENT BANKING ANALYST Temperature 36.3 C (97.3 F) 05/27/2024 8:11 AM INVESTMENT BANKING ANALYST Respiratory Rate 16 05/27/2024 8:11 AM INVESTMENT BANKING ANALYST Oxygen Saturation 99% 05/27/2024 8:11 AM INVESTMENT BANKING ANALYST Inhaled Oxygen Concentration - - Weight 112.5 kg (248 lb) 05/27/2024 8:11 AM INVESTMENT BANKING ANALYST Height 170.2 cm (5' 7) 05/27/2024 8:11 AM INVESTMENT BANKING ANALYST Body Mass Index 38.84 05/27/2024 8:11 AM INVESTMENT BANKING ANALYST Plan of Treatment Upcoming Encounters Date Type Department Care Team (Late st Contact Info) Description 12/23/2024 11:15 AM CDT Office Visit [facility] - [place] [address] [place] [address] Adam Paul MD [address] [address] 01/31/2025 11:45 AM CDT [facility] [address] [place] [phone] Rayshawn Umanzor MD #2 [facility] [address] [place] [address] Health Maintenance Due Date Last Done Comments Hepatitis C Virus (HCV) Screening 1973 TdaP Immunization 1973 Hepatitis B Immunization (1 of 3 - 19+ 3-dose series) 1992 Pneumococcal Immunization (5 0+ years) (1 of 2 - PCV) 1992 Cologuard 2018 Colonoscopy 2018 Colorectal Cancer Screening 2018 Immunochemical Fecal Occult Blood 2018 Zoster Immunization (1 of 2) 10/05/2023 Influenza Immunization (#1) 12/02/202401/01, 01/11/2020, 01/11/2020 SARS-COV-2 Immunization ( - 2023- season) 2024 Respiratory Syncytial Virus (RSV) Immunization (Adult) (1 - 1-dose 75+ series) 2048 Human Papillomavirus (HPV) Immunization Aged Out No longer eligible b ased on patient's age to complete this topic Meningococcal Immunization (ACWY) Aged Out No longer eligible b ased on patient's age to complete this topic Rotavirus Immunization Aged Out No lo nger eligible based on patient's age to complete this topic Insurance MEDICARE [facility] Advance Directives * Full Code (Latest Code Status on File) Date Activated Date Inactivated Comments 05/13/2016 5:37 AM 05/13/2016 1:14 PM CPR-Full Gustavo atment: FULL ARREST: Attempt Resuscitation/CPR wit intubation and mechanical ventilation. PRE-ARREST: Use entire range of life support measures to stabilize the patient. Care Teams Math Teacher Relationship Specialty Start Date End Date Adam Paul MD #[address] [facility] [address] [place] [address] PCP - General Family Medicine 02/19/15 Robby Salinas MD #[address] [facility] [address] [place] [address] Consulting Physician Orthopaedic Sports Medicine 04/18/16 Rayshawn Umanzor MD #2 [facility] [address] [place] [address] Consulting Physician Urology 03/17/23 Ra Shell MD #[address] [facility] [address] [place] [address] Consulting Physician Colon and Rectal Surgery 06/08/23
--- OUTSIDE RECORDS SUMMARY | 2024-12-20 13:02 | XMS_ITS | Encounter Summary ---
Author Organization [facility] Address [address] [facility] [place] [address] Phone Care Team Providers Care Coconut Jelly Roller Name Role Phone Adam Paul MD Primary Care Provider [phone] Robby Salinas MD Unavailable Rayshawn Umanzor MD Unavailable [phone] Ra Shell MD Unavailable Reason for Visit * Reason Comments Medication Refill Encounter Details Date Type Department Care Team (Late st Contact Info) Description 09/20/2023 Refill [facility] - Family Medicine [facility] #2 [place] [phone] Adam Paul MD #[address] [address] Medication Refill Social History Tobacco Use Types Packs/Day Years Used Date Smoking Tobacco: Never Smokeless Tobacco: Current Chew Comments:one can a day, sinc e 1995 Alcohol Use Standard Drinks/Week Comments Not Currently 0 (1 standard drink = 0.6 oz pur e alcohol) rare [facility] Utilities Answer Date Recorded In the past 12 months has th e electric, gas, oil, or water company threatened to shut off services in your home? No 05/04/2023 Social Connection and Isolation Panel Answer Date Recorded In a typical week, how many times do you talk on the phone with family, friends, or neighbors? More than three times a week 05/04/2023 How often do you get togethe r with friends or relatives? Twice a week 05/04/2023 Attends Episcopal Services Not on file 05/04 Do you belong to any clubs o r organizations such as sikh groups, unions, fraternal or athletic groups, or [...] Total Score - Questions 1-9 0 11/02 [facility] of Occupat ional Health - Occupational Stress [...] place to sleep or slept in a [place] facility (including now)? No 05/04/2023 Education Answer Date [...] Telephone Encounter - Lisbeth Kapoor RN - 09/20/2023 9:16 AM CDT Medication(s) refilled and signed per [facility] Chronic Medication Refill Standing Order for Pediatricand Adult Patients. Requested Prescriptions Pending Prescriptions Disp Refills omeprazole (PriLOSEC) 20 MG CAPSULE DELAYED RELEASE [Pharmacy Med Name: OMEPRAZOLE DR 20 MG CAPSULE] 90 Capsule 1 Sig: TAKE 1 CAPSULE BY MOUTH EVERY DAY Proton Pump Inhibitors Protocol Passed - 09/20/2023 12:41 AM Passed - Visit with relevant provider in past 12 months or upcoming 90 days Recent Visits Date Type Provider Dept 05/04/23 Office Visit Adam Paul MD [facility] 02/02/23 Telemedicine Adam Paul MD [facility] 12/26/22 Office Visit [facility] Showing recent visits within past 365 days and meeting all other requirements Future Appointments Date Type Provider Dept 11/16/23 Appointment Adam Paul MD [facility] [address] Showing future appointments within next 90 days and meeting all other requirements documented in this encounter Plan of Treatment Upcoming Encounters Date Type Department Care Team (Late st Contact Info) Description 12/23/2024 11:15 AM CDT Office Visit [facility] - Family Medicine - [place] #[address] [facility] [place] [address] Adam Paul MD [facility] [address] [place] [address] 01/31/2025 11:45 AM CDT Office Visit [facility] [place] [address] Rayshawn Umanzor MD [address] [facility] [address] [place] [address] documented as of this encounter Visit Diagnoses Diagnosis Esophagitis Esophagitis, unspecified documented in this encounter Additional Health Concerns Assessment Noted Time PHQ-9 Depression Total Score: 0 11/26/19 20 9:00 AM CDT documented as of this encounter Care Teams Coconut Jelly Roller Relationship Specialty Start Date End Date Adam Paul MD [address] [place] [address] PCP - General Family Medicine 02/19/15 Robby Salinas MD [address] [place] [address] Consulting Physician Orthopaedic Sports Medicine 04/18/16 Rayshawn Umanzor MD #[address] [facility] [address] [place] [address] Consulting Physician Urology 03/17/23 Ra Shell MD #[address] [address] Consulting Physician Colon and Rectal Surgery 06/08/23 documented as of this encounter
--- OUTSIDE RECORDS SUMMARY | 2024-12-20 13:02 | XMS_ITS | Encounter Summary ---
Author Organization [facility] Address [address] [facility] [place] [address] Phone Care Team Providers Care Catalog Specialist Name Role Phone Adam Paul MD Primary Care Provider [phone] Robby Salinas MD Unavailable Rayshawn Umanzor MD Unavailable [phone] Ra Shell MD Unavailable Reason for Visit * Reason Comments Medication Refill Encounter Details Date Type Department Care Team (Late st Contact Info) Description 03/16/2020 Refill [facility] - Family Medicine [facility] #2 [place] [phone] Adam Paul MD #[address] [address] Medication Refill Social History Tobacco Use Types Packs/Day Years Used Date Smoking Tobacco: Never Smokeless Tobacco: Current Chew Comments:20 years Alcohol Use Standard Drinks/Week Comments Yes 1 (1 standard drink = 0.6 oz pur [...] have Coronavirus / COVID-19? No / Unsure 03/09/2020 9:32 AM WILDLIFE BIOLOGY TECHNICIAN documented as of this encounter Miscellaneous Notes * Telephone Encounter - Lisbeth Kapoor RN - 03/16/2020 2:23 PM CST Medication failed the protocol, provider to review and approve the medication order if appropriate. Requested Prescriptions Pending Prescriptions Disp Refills tiZANidine (ZANAFLEX) 4 MG Tablet [Pharmacy Med Name: TIZANIDINE HCL 4 MG TABLET] 60 Tab 0 Sig: TAKE 1 TABLET BY MOUTH TWICE A DAY Not Delegated - Analgesics: Muscle Relaxants Failed - 03/16/2020 9:44 AM Failed - This refill cannot be delegated Passed - Valid encounter within last 6 months Past Office Visits Recent Outpatient Visits 1 week ago Chronic joint pain [facility] Adam Veras MD 3 months ago Rectal pain [facility] Veras MD 11 months ago Anxiety [facility] Adam Veras MD 1 year ago Chronic neck pain [facility] Adam Veras MD 1 year ago Nausea [facility] Adam Veras MD Upcoming Appointments Future Appointments In 2 months Adam Paul MD [facility] Artie Peterson [facility] GLUING CREW LEADER - Recent and Past Visits Recent Visits Date Type Provider Dept 03/09/20 Office Visit Adam Paul MD [facility] 11/26/19 Office Visit Adam Paul MD [facility] 04/18/19 [facility] recent visits within past 460 days with a meds authorizing provider and meeting all other requirements Future Appointments Date Type Provider Dept 06/09/20 Appointment Adam Paul MD [facility] [address] Showing future appointments within next 90 days with a meds authorizing provider and meeting all other requirements LIFE BIOLOGY TECHNICIAN documented in this encounter Plan of Treatment Upcoming Encounters Date Type Department Care Team (Late st Contact Info) Description 12/23/2024 11:15 AM CDT Office Visit [facility] Medical Group - Family Medicine - [place] [address] [place] [address] Adam Paul MD [facility] [address] [place] [address] 01/31/2025 11:45 AM CDT Office Visit [facility] PHYSICIAN [facility] #[address] [facility] [place] [address] Rayshawn Umanzor MD [address] [facility] [address] [place] [address] documented as of this encounter Visit Diagnoses Not on filedocumented in this encounter Additional Health Concerns Assessment Noted Time PHQ-9 Depression Total Score: 0 11/26/19 20 9:00 AM CDT documented as of this encounter Care Teams Catalog Specialist Relationship Specialty Start Date End Date Adam Paul MD [facility] [address] [place] [address] PCP - General Family Medicine 02/19/15 Robby Salinas MD [facility] [address] [place] [address] Consulting Physician Orthopaedic Sports Medicine 04/18/16 Rayshawn Umanzor MD #2 [address] [facility] [address] [place] [address] Consulting Physician Urology 03/17/23 Ra Shell MD #[address] [facility] [address] [place] [address] Consulting Physician Colon and Rectal Surgery 06/08/23 documented as of this encounter
--- OUTSIDE RECORDS SUMMARY | 2024-12-20 13:02 | XMS_ITS | Encounter Summary ---
Author Organization [facility] Address [address] [facility] [place] [address] Phone Care Team Providers Care Egg Buyer Name Role Phone Adam Paul MD Primary Care Provider [phone] Robby Salinas MD Unavailable Rayshawn Umanzor MD Unavailable [phone] Ra Shell MD Unavailable Reason for Visit * Reason Comments Medication Refill Encounter Details Date Type Department Care Team (Late st Contact Info) Description 01/27/2023 Refill [facility] Medical Group - Family Medicine [facility] #2 [place] [phone] Adam Paul MD #[address] [address] Medication Refill Social History Tobacco Use Types Packs/Day Years Used Date Smoking Tobacco: Never Smokeless Tobacco: Current Chew Comments:one can a day, sinc e 1995 Alcohol Use Standard Drinks/Week Comments Not Currently 0 (1 standard drink = 0.6 oz pur e alcohol) rare PHQ-2 Answer Date Recorded Total Score - Questions 1-9 0 11/02 Education Answer Date Recorded What is the [...] Telephone Encounter - Lisbeth Kapoor RN - 01/27/2023 5:09 PM CDT Medication failed the protocol, provider to review and approve the medication order if appropriate. Requested Prescriptions Pending Prescriptions Disp Refills pregabalin (LYRICA) 50 MG Capsule [Pharmacy Med Name: PREGABALIN 50 MG CAPSULE] 90 Capsule 0 Sig: TAKE 1 CAPSULE BY MOUTH THREE TIMES A DAY. STOP GABAPENTIN WHILE TAKING. Not Delegated - Anticonvulsants Excluding Benzodiazepines Protocol Failed - 01/27/2023 4:15 PM Failed - This refill cannot be delegated Passed - Visit with relevant provider in past 12 months or upcoming 90 days Recent Visits Date Type Provider Dept 12/26/22 Office Visit Adam Paul MD [facility] 08/03/22 Office Visit Adam Paul MD [facility] Showing recent visits within past 365 days and meeting all other requirements Future Appointments Date Type Provider Dept 03/29/23 Appointment Adam Paul MD [facility] Showing future appointments within next 90 days and meeting all other requirements documented in this encounter Plan of Treatment Upcoming Encounters Date Type Department Care Team (Late st Contact Info) Description 12/23/2024 11:15 AM CDT Office Visit [facility] Medical Group - Family Medicine - [place] [address] [place] [address] Adam Paul MD #[address] [address] 01/31/2025 11:45 AM CDT Office Visit [facility] [address] [place] [address] Rayshawn Umanzor MD #[address] [facility] [address] [place] [address] documented as of this encounter Visit Diagnoses Diagnosis Chronic pain syndrome documented in this encounter Additional Health Concerns Assessment Noted Time PHQ-9 Depression Total Score: 0 11/26/19 20 9:00 AM CDT documented as of this encounter Care Teams Egg Buyer Relationship Specialty Start Date End Date Adam Paul MD #[address] [facility] [address] [place] [address] PCP - General Family Medicine 02/19/15 Robby Salinas MD #[address] [address] [place] [address] Consulting Physician Orthopaedic Sports Medicine 04/18/16 Rayshawn Umanzor MD #[address] [facility] [address] [place] [address] Consulting Physician Urology 03/17/23 Ra Shell MD #2 [address] [facility] [address] [place] [address] Consulting Physician Colon and Rectal Surgery 06/08/23 documented as of this encounter
--- OUTSIDE RECORDS SUMMARY | 2024-12-20 13:02 | XMS_ITS | Encounter Summary ---
Author Organization [facility] Address [address] [facility] [place] [address] Phone Care Team Providers Care Mental Hygiene Consultant Name Role Phone Adam Paul MD Primary Care Provider [phone] Robby Salinas MD Unavailable Rayshawn Umanzor MD Unavailable [phone] Ra Shell MD Unavailable Reason for Visit * Reason Comments Medication Refill Encounter Details Date Type Department Care Team (Late st Contact Info) Description 08/24/2020 [facility] [address] [place] [address] Adam Paul MD #[address] [address] Medication Refill Social History Tobacco Use Types [...] have Coronavirus / COVID-19? No / Unsure 08/12/2020 9:55 AM CDT documented as of this encounter Miscellaneous Notes * Telephone Encounter - Imelda Murcia RN - 08/24/2020 4:16 PM CDT [place] last fill date 07/27/20 Medication failed the protocol, provider to review and approve the medication order if appropriate. Requested Prescriptions Pending Prescriptions Disp Refills Acetaminophen-Codeine 300-60 MG Tablet [Pharmacy Med Name: ACETAMINOPHEN-COD #4 TABLET] 60 Tablet Sig: TAKE 1 TABLET BY MOUTH TWICE A DAY NEEDED FOR MODERATE OR MORE SEVERE PAIN healthfinch Not Delegated - Analgesics: Opioid Agonist Combinations Failed - 08/24/2020 4:16 PM Failed - This refill cannot be delegated Passed - Valid encounter within last 6 months Past Office Visits Recent Outpatient Visits 5 months ago Chronic joint pain [facility] - Adam Veras MD 9 months ago Rectal pain [facility] Adam Veras MD 1 year ago Anxiety [facility] Adam Veras MD 2 years ago Chronic neck pain [facility] Adam Veras MD 2 years ago Nausea [facility] Adam Veras MD Upcoming Appointments 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 Showing future appointments within next 90 days with a meds authorizing provider and meeting all other requirements * Telephone Encounter - Julianne Griffin RN - 08/24/2020 10:51 AM CDT Patient called looking for refill update on tylenol #4, transferred to refill line. documented in this encounter Plan of Treatment Upcoming Encounters Date Type Department Care Team (Late st Contact Info) Description 12/23/2024 11:15 AM CDT [facility] Visit [facility] [place] [address] Adam Paul MD #2 [facility] [address] [place] [address] 01/31/2025 11:45 AM CDT Office Visit [facility] #2 [place] [address] Rayshawn Umanzor MD #2 [facility] [address] [place] [address] documented as of this encounter Visit Diagnoses Diagnosis Chronic pain syndrome documented in this encounter Additional Health Concerns Assessment Noted Time PHQ-9 Depression Total Score: 0 11/26/19 9:00 AM CDT documented as of this encounter Care Teams Mental Hygiene Consultant Relationship Specialty Start Date End Date Adam Paul MD #2 [facility] [address] [place] [address] PCP - General Family Medicine 02/19/15 Robby Salinas MD #2 [facility] [address] [place] [address] Consulting Physician Orthopaedic Sports Medicine 04/18/16 Rayshawn Umanzor MD #2 [facility] [facility] [address] [place] [address] Consulting Physician Urology 03/17/23 Ra Shell MD #2 [address] [facility] [address] [place] [address] Consulting Physician Colon and Rectal Surgery 06/08/23 documented as of this encounter
--- OUTSIDE RECORDS SUMMARY | 2024-12-20 13:02 | XMS_ITS | Encounter Summary ---
Author Organization [facility] Address [address] [facility] [place] [address] Phone Care Team Providers Care Bandmill Operator Name Role Phone Adam Paul MD Primary Care Provider [phone] Robby Salinas MD Unavailable Rayshawn Umanzor MD Unavailable [phone] Ra Shell MD Unavailable Reason for Visit * Reason Comments Medication Refill Encounter Details Date Type Department Care Team (Late st Contact Info) Description 12/26/2019 Refill [facility] - Family Medicine [facility] #2 [place] [phone] Adam Paul MD #[address] [address] Medication Refill Social History Tobacco Use Types Packs/Day Years Used Date Smoking Tobacco: Former Smokeless Tobacco: Current Chew Comments:20 years Alcohol Use Standard Drinks/Week Comments Yes 1 (1 standard drink = 0.6 oz pur e alcohol) 1 a night PHQ-2 Answer Date Recorded Total Score - Questions 1-9 0 11/02 Sex and Gender Information Value Date Recorded Sex Assigned at Not on file Legal Sex Male 9:58 PM CDT Gender Identity Not on file Sexual Orientation Not on file COVID-19 Exposure Response Date Recorded In the last month, have you been in contact with someone who was confirmed or suspected to have Coronavirus / COVID-19? No / Unsure 11/26/2019 8:49 AM CDT documented as of this encounter Miscellaneous Notes * Telephone Encounter - Barbara Blakely RN - 12/27/2019 12:26 PM CDT Medication failed the Protocol, routing to provider to review and approve medication order. Requested Prescriptions Pending Prescriptions Disp Refills tiZANidine (ZANAFLEX) 4 MG Tablet [Pharmacy Med Name: TIZANIDINE HCL 4 MG TABLET] 60 Tab 0 Sig: TAKE 1 TABLET BY MOUTH TWICE A DAY Not Delegated - Analgesics: Muscle Relaxants Failed - 12/26/2019 9:32 AM Failed - This refill cannot be delegated Passed - Valid encounter within last 6 months Past Office Visits Recent Outpatient Visits 1 month ago Rectal pain [facility] - Adam Vears MD 8 months ago Anxiety [facility] Family [facility] - Adam Veras MD 1 year ago Chronic neck pain [facility] Family [facility] - Adam Veras MD 1 year ago Nausea [facility] - Adam Veras MD 1 year ago Chronic right shoulder pain [facility] Cervantes APN, APPLICATION SUPPORT ANALYST Upcoming Appointments COO - Recent and Past Visits Recent Visits Date Type Provider Dept 11/26/19 Office Visit Adam Paul MD [facility] 04/18/19 Office Visit Adam Paul MD [facility] Showing recent visits within past 460 days with a meds authorizing provider and meeting all other requirements Future Appointments No visits were found meeting these conditions. Showing future appointments within next 90 days with a meds authorizing provider and meeting all other requirements documented in this encounter Plan of Treatment Upcoming Encounters Date Type Department Care Team (Late st Contact Info) Description 12/23/2024 11:15 AM CDT Office Visit [facility] - Family Medicine - [place] #[address] [facility] [address] Adam Paul MD #2 [facility] [address] [place] [address] 01/31/2025 11:45 AM CDT Office Visit [facility] UROLOGY #[address] [facility] [place] [address] Rayshawn Umanzor MD #2 [address] [facility] [address] [place] [address] documented as of this encounter Visit Diagnoses Not on filedocumented in this encounter Additional Health Concerns Assessment Noted Time PHQ-9 Depression Total Score: 0 11/26/19 20 9:00 AM CDT documented as of this encounter Care Teams Bandmill Operator Relationship Specialty Start Date End Date Adam Paul MD #2 [facility] [address] [place] [address] PCP - General Family Medicine 02/19/15 Robby Salinas MD #2 [facility] [address] [place] [address] Consulting Physician Orthopaedic Sports Medicine 04/18/16 Rayshawn Umanzor MD #2 [address] [facility] [address] [place] [address] Consulting Physician Urology 03/17/23 Ra Shell MD #2 [facility] [address] [place] [address] Consulting Physician Colon and Rectal Surgery 06/08/23 documented as of this encounter
--- OUTSIDE RECORDS SUMMARY | 2024-12-20 13:02 | XMS_ITS | Encounter Summary ---
Author Organization [facility] Address [address] [facility] [place] [address] Phone Care Team Providers Care Carpet Tile Layer Name Role Phone Adam Paul MD Primary Care Provider [phone] Robby Salinas MD Unavailable Rayshawn Umanzor MD Unavailable [phone] Ra Shell MD Unavailable Reason for Visit * Reason Comments Medication Refill Encounter Details Date Type Department Care Team (Late st Contact Info) Description 01/31/2023 Refill [facility] - Family Medicine [facility] #2 [place] [address] Adam Paul MD #[address] [address] Medication Refill Social History Tobacco Use Types [...] Telephone Encounter - Lisbeth Kapoor RN - 02/01/2023 8:51 AM CDT PDMP Alprazolam 12/29/22 Medication failed the protocol, provider to review and approve the medication order if appropriate. Requested Prescriptions Pending Prescriptions Disp Refills meclizine (ANTIVERT) 25 MG Tablet [Pharmacy Med Name: MECLIZINE 25 MG TABLET] 60 Tablet 1 Sig: TAKE 1 TABLET BY MOUTH EVERY 12 HOURS NEEDED FOR DIZZINESS OR NAUSEA. Not Delegated - Off Protocol Failed - 01/31/2023 2:30 PM Failed - This refill cannot be [...] 90 days and meeting all other requirements ALPRAZolam (XANAX) 0.5 MG Tablet [Pharmacy Med Name: ALPRAZOLAM 0.5 MG TABLET] 90 Tablet 0 Sig: TAKE 1 TABLET BY MOUTH THREE TIMES A DAY NEEDED FOR ANXIETY Not Delegated - Benzodiazepines Protocol Failed - 01/31/2023 2:31 PM Failed - This refill cannot be [...] Appointments Date Type Provider Dept 03/29/23 Appointment [facility]am [facility] Show[facility] future appointments within next 90 days and meeting all other requirements documented in this encounter Plan of Treatment Upcoming Encounters Date Type Department Care Team (Late st Contact Info) Description 12/23/2024 11:15 AM CDT Office Visit [facility] Medical Group - Family Medicine - [place] #[address] [facility] [address] Adam Paul MD [address] [place] [address] 01/31/2025 11:45 AM CDT Office Visit [facility] PH[facility] #2 [place] [address] Rayshawn Umanzor MD #[address] [place] [address] documented as of this encounter Visit Diagnoses Diagnosis Anxiety Anxiety state, unspecified documented in this encounter Additional Health Concerns Assessment Noted Time PHQ-9 Depression Total Score: 0 11/26/19 20 9:00 AM CDT documented as of this encounter Care Teams Carpet Tile Layer Relationship Specialty Start Date End Date Adam Paul MD [address] [place] [address] PCP - General Family Medicine 02/19/15 Robby Salinas MD #[address] [place] [address] Consulting Physician Orthopaedic Sports Medicine 04/18/16 Rayshawn Umanzor MD #2 [facility] [address] [place] [address] Consulting Physician Urology 03/17/23 Ra Shell MD #2 [address] [facility] [address] [place] [address] Consulting Physician Colon and Rectal Surgery 06/08/23 documented as of this encounter
--- OUTSIDE RECORDS SUMMARY | 2024-12-20 13:02 | XMS_ITS | Encounter Summary ---
Author Organization [facility] Address [address] [facility] [place] [address] Phone Care Team Providers Care Last Model Maker Name Role Phone Adam Paul MD Primary Care Provider [phone] Robby Salinas MD Unavailable Rayshawn Umanzor MD Unavailable [phone] Ra Shell MD Unavailable Reason for Visit * Reason Comments Medication Refill Encounter Details Date Type Department Care Team (Late st Contact Info) Description 12/28/[address] [facility] - Family Medicine [facility] #2 [place] [address] Adam Paul MD #[address] [address] Medication Refill Social History Tobacco Use Types [...] Exposure Response Date Recorded In the last 10 days, have yo u been in contact with someone who was confirmed or suspected to have Coronavirus/COVID-19? No / Unsure 12/26/2022 1:19 PM CDT documented as of this encounter Miscellaneous Notes * Telephone Encounter - Gely Santizo RN - 12/29/2022 10:38 AM CDT PDMP dispensed 11/11/22 as 30-day supply Medication failed the protocol, provider to review and approve the medication order if appropriate. Requested Prescriptions Pending Prescriptions Disp Refills ALPRAZolam (XANAX) 0.5 MG Tablet [Pharmacy Med Name: ALPRAZOLAM 0.5 MG TABLET] 90 Tablet 0 Sig: TAKE 1 TABLET BY MOUTH THREE TIMES A DAY NEEDED FOR ANXIETY Not Delegated - Benzodiazepines Protocol Failed - 12/28/2022 12:25 PM Failed - This refill cannot be delegated Passed - Visit with relevant provider in past 12 months or upcoming 90 days Recent Visits Date Type Provider Dept 12/26/22 Office Visit Adam Paul MD [facility] 08/03/22 Office Visit [facility] [place] Showing recent visits within past 365 days and meeting all other requirements Future Appointments Date Type Provider Dept 03/29/23 Appointment Adam Paul MD [facility] Showing future appointments within next 90 days and meeting all other requirements documented in this encounter Plan of Treatment Upcoming Encounters Date Type Department Care Team (Late st Contact Info) Description 12/23/2024 11:15 AM CDT Office [facility] - Family Medicine - [place] #2 [place] [address] Adam Paul MD #2 [address] [facility] [address] [place] [address] 01/31/2025 11:45 AM CDT Office Visit [facility] #[address] [place] [address] Rayshawn Umanzor MD #[address] [facility] [address] [place] [address] documented as of this encounter Visit Diagnoses Diagnosis Anxiety Anxiety state, unspecified documented in this encounter Additional Health Concerns Assessment Noted Time PHQ-9 Depression Total Score: 0 11/26/19 20 9:00 AM CDT documented as of this encounter Care Teams Last Model Maker Relationship Specialty Start Date End Date Adam Paul MD #2 [address] [facility] [address] [place] [address] PCP - General Family Medicine 02/19/15 Robby Salinas MD #2 [address] [facility] [address] [place] [address] Consulting Physician Orthopaedic Sports Medicine 04/18/16 Rayshawn Umanzor MD #[address] [facility] [facility] [address] [place] [address] Consulting Physician Urology 03/17/23 Ra Shell MD #2 [address] [facility] [address] [place] [address] Consulting Physician Colon and Rectal Surgery 06/08/23 documented as of this encounter
--- OUTSIDE RECORDS SUMMARY | 2024-12-20 13:02 | XMS_ITS | Encounter Summary ---
Author Organization [facility] Address [address] [facility] [place] [address] Phone Care Team Providers Care Mink Farmer Name Role Phone Adam Paul MD Primary Care Provider [phone] Robby Salinas MD Unavailable Rayshawn Umanzor MD Unavailable [phone] Ra Shell MD Unavailable Reason for Visit * Reason Comments Medication Refill Encounter Details Date Type Department Care Team (Late st Contact Info) Description 05/26/2023 Refill [facility] [address]2 [place] [phone] Adam Paul MD #[address] [address] Medication Refill Social History Tobacco Use Types Packs/Day Years Used Date Smoking Tobacco: Never Smokeless Tobacco: Current Chew Comments:one can a day, sinc e 1995 Alcohol Use Standard Drinks/Week Comments Not Currently 0 (1 standard drink = 0.6 oz pur e alcohol) rare [facility] Utilities Answer Date Recorded In the past [...] or relatives? Twice a week 05/04/2023 Attends [employer] Services Not on file 05/04 Do you belong to any clubs o r organizations such as caodaism groups, unions, fraternal or athletic groups, or [...] Total Score - Questions 1-9 0 11/02 [facility] - Occupational Stress [...] place to sleep or slept in a senior living (including now)? No 05/04/2023 Education Answer Date [...] Telephone Encounter - Lisbeth Kapoor RN - 05/26/2023 3:26 PM CST Medication failed the protocol, provider to review and approve the medication order if appropriate. Requested Prescriptions Pending Prescriptions Disp Refills meclizine (ANTIVERT) 25 MG Tablet [Pharmacy Med Name: MECLIZINE 25 MG TABLET] 60 Tablet 1 Sig: TAKE 1 TABLET BY MOUTH EVERY 12 HOURS NEEDED FOR DIZZINESS OR NAUSEA. Not Delegated - Off Protocol Failed - 05/26/2023 2:16 PM Failed - This refill cannot be delegated Passed - Visit with relevant provider in past 12 months or upcoming 90 days Recent Visits Date Type Provider Dept 05/04/23 Office Visit Adam Paul MD [facility] 02/02/23 Telemedicine Adam Paul MD [facility] 12/26/22 Office Visit Adam Paul MD [facility] 08/03/22 Office Visit Adam Paul MD [facility] Showing recent visits within past 365 days and meeting all other requirements Future Appointments Date Type Provider Dept 08/07/23 Appointment Adam Paul MD [facility] Showing future appointments within next 90 days and meeting all other requirements rosuvastatin (CRESTOR) 10 MG Tablet [Pharmacy Med Name: ROSUVASTATIN CALCIUM 10 MG TAB] 90 Tablet 1 Sig: TAKE 1 TABLET BY MOUTH EVERY DAY [facility] CoA Reductase Inhibitors Protocol Passed - 05/26/2023 2:16 PM Passed - Visit with relevant provider in past 12 months or upcoming 90 days Recent Visits Date Type Provider Dept 05/04/23 Office Visit Adam Paul MD [facility] 02/02/23 Telemedicine Adam Paul MD [facility] 12/26/22 Office Visit Adam Paul MD [facility] 08/03/22 Office Visit Adam Paul MD [facility] Showing recent visits within past 365 days and meeting all other requirements Future Appointments Date Type Provider Dept 08/07/23 Appointment Adam Paul MD [facility] Showing future appointments within next 90 days and meeting all other requirements Passed - Lipid panel in past 12 months LDL Date Value Ref Range Status 04/07/2023 91 <130 mg/dL Final HDL CHOLESTEROL Date Value Ref Range Status 04/07/2023 36 (L) >40 mg/dL Final CHOLESTEROL Date Value Ref Range Status 04/07/2023 168 <200 mg/dL Final TRIGLYCERIDES Date Value Ref Range Status 04/07/2023 203 (H) <150 mg/dL Final VLDL Date Value Ref Range Status 04/07/2023 41 10 - 50 mg/dL Final CHOL/HDL RATIO Date Value Ref Range Status 04/07/2023 4.7 (H) 0.0 - 4.4 Final NON-HDL CHOLESTEROL Date Value Ref Range Status 04/07/2023 132 (H) <130 mg/dL Final Passed - CMP in past 12 months SODIUM Date Value Ref Range Status 04/07/2023 139 136 - 145 mmol/L Final POTASSIUM Date Value Ref Range Status 04/07/2023 4.2 3.5 - 5.1 mmol/L Final CHLORIDE Date Value Ref Range Status 04/07/2023 105 98 - 107 mmol/L Final CO2, VENOUS Date Value Ref Range Status 04/07/2023 26 22 - 30 mmol/L Final ANION GAP Date Value Ref Range Status 04/07/2023 12.2 <18.0 mmol/L Final GLUCOSE Date Value Ref Range Status 04/07/2023 105 (H) 70 - 99 mg/dL Final BUN Date Value Ref Range Status 04/07/2023 13 9 - 21 mg/dL Final CREATININE, BLOOD Date Value Ref Range Status 04/07/2023 0.72 0.70 - 1.30 mg/dL Final BUN/CREATININE RATIO Date Value Ref Range Status 04/07/2023 18 12 - 20 ratio Final TOTAL PROTEIN Date Value Ref Range Status 04/07/2023 7.5 6.3 - 8.2 g/dL Final ALBUMIN Date Value Ref Range Status 04/07/2023 4.8 3.5 - 5.0 g/dL Final 04/07/2023 4.8 3.5 - 5.0 g/dL Final A/G RATIO Date Value Ref Range Status 04/07/2023 1.8 1.0 - 2.2 Final CALCIUM Date Value Ref Range Status 04/07/2023 9.8 8.7 - 10.5 mg/dL Final T BILI Date Value Ref Range Status 04/07/2023 0.7 0.2 - 1.2 mg/dL Final SGOT (AST) Date Value Ref Range Status 04/07/2023 26 5 - 34 U/L Final SGPT (ALT) Date Value Ref Range Status 04/07/2023 38 0 - 55 U/L Final ALKALINE PHOSPHATASE Date Value Ref Range Status 04/07/2023 79 40 - 150 U/L Final GFR, EST. NONAFRICAN Date Value Ref Range Status 04/07/2023 >60 >=60 Final GFR, EST. Date Value Ref Range Status 04/07/2023 >60 >=60 Final GFR, ESTIMATED Date Value Ref Range Status 04/07/2023 >60 >=60 Final Comment: Creatinine Clearance is the preferred criteria for selecting drug dose adjustments in renally impaired patients. The GFR is provided as additional pertinent clinical information. GFR is reported in mL/min/1.73 sq m. Calculation based on the Chronic Kidney Disease Epidemiology Collaboration (CKD- EPI) equation refitwithout adjustment for race. IS THE PATIENT REQUIRED TO BE FASTING? Date Value Ref Range Status 04/07/2023 No Final T STEAM YACHT documented in this encounter Plan of Treatment Upcoming Encounters Date Type Department Care Team (Late st Contact Info) Description 12/23/2024 11:15 AM CDT [facility]2 [facility] [place] [address] Adam Paul MD [facility]2 [facility] [address] [place] [address] 01/31/2025 11:45 AM CDT Office Visit [facility] [place] [address] Rayshawn Umanzor MD [facility] [address] [place] [address] documented as of this encounter Visit Diagnoses Not on filedocumented in this encounter Additional Health Concerns Assessment Noted Time PHQ-9 Depression Total Score: 0 11/26/19 20 9:00 AM CDT documented as of this encounter Care Teams Mink Farmer Relationship Specialty Start Date End Date Adam Paul MD [facility]2 [facility] [address] [place] [address] PCP - General Family Medicine 02/19/15 Robby Salinas MD [address] [place] [address] Consulting Physician Orthopaedic Sports Medicine 04/18/16 Rayshawn Umanzor MD #2 [facility] [address] [place] [address] Consulting Physician Urology 03/17/23 Ra Shell MD #[address] [address] Consulting Physician Colon and Rectal Surgery 06/08/23 documented as of this encounter
--- OUTSIDE RECORDS SUMMARY | 2024-12-20 13:02 | XMS_ITS | Encounter Summary ---
Author Organization [facility] Address [address] [facility] [place] [address] Phone Care Team Providers Care Sewing Demonstrator Name Role Phone Adam Paul MD Primary Care Provider [phone] Robby Salinas MD Unavailable Rayshawn Umanzor MD Unavailable [phone] Ra Shell MD Unavailable Reason for Visit * Reason Comments Medication Refill Encounter Details Date Type Department Care Team (Late st Contact Info) Description 05/09/2022 Refill [facility] - Family Medicine [facility] [place] [address] Adam Paul MD #[address] [address] Medication Refill Social History Tobacco Use Types [...] encounter Miscellaneous Notes * Telephone Encounter - Rachel Spencer RN - 05/09/2022 10:05 AM AIRLINE FLIGHT ATTENDANT Refill requested too soon. INE FLIGHT ATTENDANT documented in this encounter Plan of Treatment Upcoming Encounters Date Type Department Care Team (Late st Contact Info) Description 12/23/2024 11:15 AM CDT [facility] [place] [address] Adam Paul MD #2 [facility] [address] [place] [address] 01/31/2025 11:45 AM CDT Office Visit [facility] #2 [place] [address] Rayshawn Umanzor MD #2 [facility] [address] [place] [address] documented as of this encounter Visit Diagnoses Not on filedocumented in this encounter Additional Health Concerns Assessment Noted Time PHQ-9 Depression Total Score: 0 11/26/19 20 9:00 AM CDT documented as of this encounter Care Teams Sewing Demonstrator Relationship Specialty Start Date End Date Adam Paul MD #2 [facility] [address] [place] [address] PCP - General Family Medicine 02/19/15 Robby Salinas MD #2 [facility] [address] [place] [address] Consulting Physician Orthopaedic Sports Medicine 04/18/16 Rayshawn Umanzor MD #2 [facility] [address] [place] [address] Consulting Physician Urology 03/17/23 Ra Shell MD #2 [facility] [address] [place] [address] Consulting Physician Colon and Rectal Surgery 06/08/23 documented as of this encounter
--- OUTSIDE RECORDS SUMMARY | 2024-12-20 13:02 | XMS_ITS | Encounter Summary ---
Author Organization [facility] Address [address] [facility] [place] [address] Phone Care Team Providers Care Apple Picker Name Role Phone Adam Paul MD Primary Care Provider [phone] Robby Salinas MD Unavailable Rayshawn Umanzor MD Unavailable [phone] Ra Shell MD Unavailable Reason for Visit * Reason Comments Medication Refill Encounter Details Date Type Department Care Team (Late st Contact Info) Description 06/26/2022 Refill [facility] - Family Medicine [facility] #2 [place] [address] Adam Paul MD #[address] [address] Medication Refill Social History Tobacco Use Types [...] Telephone Encounter - Rachel Spencer RN - 06/27/2022 11:46 AM CDT Medication failed the protocol, provider to review and approve the medication order if appropriate. Requested Prescriptions Pending Prescriptions Disp Refills gabapentin (NEURONTIN) 400 MG Capsule [Pharmacy Med Name: GABAPENTIN 400 MG CAPSULE] 90 Capsule 5 Sig: TAKE 1 CAPSULE BY MOUTH THREE TIMES A DAY Not Delegated - Anticonvulsants Excluding Benzodiazepines Protocol Failed - 06/26/2022 5:22 PM Failed - This refill cannot be delegated Passed - Visit with relevant provider in past 12 months or upcoming 90 days Recent Visits Date Type Provider Dept 07/28/21 Office Visit Adam Paul MD [facility] Showing recent visits within past 365 days and meeting all other requirements Future Appointments Date Type Provider Dept 08/03/22 Appointment Adam Paul MD [facility] Showing future appointments within next 90 days and meeting all other requirements documented in this encounter Plan of Treatment Upcoming Encounters Date Type Department Care Team (Late st Contact Info) Description 12/23/2024 11:15 AM CDT Office Visit [facility] Group - Family Medicine - [place] #2 [place] [address] Adam Paul MD #2 [facility] [address] [place] [address] 01/31/2025 11:45 AM CDT Office Visit [facility] #[address] [place] [address] Rayshawn Umanzor MD #2 [facility] [address] [place] [address] documented as of this encounter Visit Diagnoses Not on filedocumented in this encounter Additional Health Concerns Assessment Noted Time PHQ-9 Depression Total Score: 0 11/26/19 20 9:00 AM CDT documented as of this encounter Care Teams Apple Picker Relationship Specialty Start Date End Date Adam Paul MD #2 [facility] [address] [place] [address] PCP - General Family Medicine 02/19/15 Robby Salinas MD #2 [facility] [address] [place] [address] Consulting Physician Orthopaedic Sports Medicine 04/18/16 Rayshawn Umanzor MD #2 [facility] [address] [place] [address] Consulting Physician Urology 03/17/23 Ra Shell MD #2 [facility] [address] [place] [address] Consulting Physician Colon and Rectal Surgery 06/08/23 documented as of this encounter
--- OUTSIDE RECORDS SUMMARY | 2024-12-20 13:02 | XMS_ITS | Encounter Summary ---
Author Organization [facility] Address [address] [facility] [place] [address] Phone Care Team Providers Care Senior Ios Software Engineer Name Role Phone Adam Paul MD Primary Care Provider [phone] Robby Salinas MD Unavailable Rayshawn Umanzor MD Unavailable [phone] Ra Shell MD Unavailable Reason for Visit * Reason Comments Medication Refill Encounter Details Date Type Department Care Team (Late st Contact Info) Description 08/16/2022 Refill [facility] - [facility] #2 [place] [address] Adam Paul MD #[address] [address] Medication Refill Social History Tobacco Use Types [...] suspected to have Coronavirus/COVID-19? No / Unsure 08/11/2022 11:15 AM CDT documented as of this encounter Miscellaneous Notes * Telephone Encounter - Rosa Mojica RN - 08/17/2022 10:54 AM CDT PDMP 07/04/22 Medication failed the protocol, provider to review and approve the medication order if appropriate. Requested Prescriptions Pending Prescriptions Disp Refills ALPRAZolam (XANAX) 0.5 MG Tablet [Pharmacy Med Name: ALPRAZOLAM 0.5 MG TABLET] 90 Tablet 0 Sig: TAKE 1 TABLET BY MOUTH THREE TIMES A DAY NEEDED FOR ANXIETY Not Delegated - Benzodiazepines Protocol Failed - 08/16/2022 3:35 PM Failed - This refill cannot be delegated Passed - Visit with relevant provider in past 12 months or upcoming 90 days Recent Visits Date Type Provider Dept 08/03/22 Office Visit [facility] [place] Showing recent visits within past 365 days and meeting all other requirements Future Appointments Date Type Provider Dept 11/03/22 Appointment Adam [facility] MD [facility] [place] Showing future appointments within next 90 days and meeting all other requirements documented in this encounter Plan of Treatment Upcoming Encounters Date Type Department Care Team (Late st Contact Info) Description 12/23/2024 11:15 AM CDT Office Visit [facility] - Family Medicine - [place] #[address] [place] [address] Adam Paul MD [address] [address] 01/31/2025 11:45 AM CDT Office Visit [facility] #[address] [place] [address] Rayshawn Umanzor MD [facility] [facility] [address] [place] [address] documented as of this encounter Visit Diagnoses Diagnosis Anxiety Anxiety state, unspecified documented in this encounter Additional Health Concerns Assessment Noted Time PHQ-9 Depression Total Score: 0 11/26/19 20 9:00 AM CDT documented as of this encounter Care Teams Senior Ios Software Engineer Relationship Specialty Start Date End Date Adam Paul MD #[address] [facility] [address] [place] [address] PCP - General Family Medicine 02/19/15 Rboby Salinas MD #[address] [facility] [address] [place] [address] Consulting Physician Orthopaedic Sports Medicine 04/18/16 Rayshawn Umanzor MD #[address] [facility] [address] [place] [address] Consulting Physician Urology 03/17/23 Ra Shell MD #[address] [facility] [address] [place] [address] Consulting Physician Colon and Rectal Surgery 06/08/23 documented as of this encounter
--- OUTSIDE RECORDS SUMMARY | 2024-12-20 13:02 | XMS_ITS | Encounter Summary ---
Author Organization [facility] Address [address] [facility] [address] Phone Care Team Providers Care Puff Iron Operator Name Role Phone Adam Paul MD Primary Care Provider [phone] Robby Salinas MD Unavailable Rayshawn Umanzor MD Unavailable [phone] Ra Shell MD Unavailable Reason for Visit * Reason Comments Medication Refill Encounter Details Date Type Department Care Team (Late st Contact Info) Description 04/21/2022 Refill [facility] - Family Medicine [facility] #2 [place] [phone] Daja Hanley [facility] #2 [place] [address] Medication Refill Social History Tobacco Use Types [...] Telephone Encounter - Lisbeth Kapoor RN - 04/22/2022 7:36 AM CST PDMP 02/22/22 Medication failed the protocol, provider to review and approve the medication order if appropriate. Requested Prescriptions Pending Prescriptions Disp Refills ALPRAZolam (XANAX) 0.5 MG Tablet [Pharmacy Med Name: ALPRAZOLAM 0.5 MG TABLET] 90 Tablet 0 Sig: TAKE 1 TABLET BY MOUTH THREE TIMES A DAY NEEDED FOR ANXIETY Not Delegated - Benzodiazepines Protocol Failed - 04/21/2022 7:28 PM Failed - This refill cannot be delegated Passed - Visit with relevant provider in past 12 months or upcoming 90 days Recent Visits Date Type Provider Dept 07/28/21 Office Visit Adam Paul MD [facility] 04/28/21 Office Visit Adam Paul MD [facility] Showing recent visits within past 365 days and meeting all other requirements Future Appointments No visits were found meeting these conditions. Showing future appointments within next 90 days and meeting all other requirements TESTER documented in this encounter Plan of Treatment Upcoming Encounters Date Type Department Care Team (Late st Contact Info) Description 12/23/2024 11:15 AM CDT Office Visit [facility] Group - Family Medicine - [place] #2 [place] [address] Adam Paul MD #[address] [address] 01/31/2025 11:45 AM CDT Office Visit [facility] #2 [place] [address] Rayshawn Umanzor MD #[facility] [address] [place] [address] documented as of this encounter Visit Diagnoses Diagnosis Anxiety Anxiety state, unspecified documented in this encounter Additional Health Concerns Assessment Noted Time PHQ-9 Depression Total Score: 0 11/26/19 20 9:00 AM CDT documented as of this encounter Care Teams Puff Iron Operator Relationship Specialty Start Date End Date Adam Paul MD [facility] [address] [place] [address] PCP - General Family Medicine 02/19/15 Robby Salinas MD #2 [facility] [address] [place] [address] Consulting Physician Orthopaedic Sports Medicine 04/18/16 Rayshawn Umanzor MD #2 [facility] [address] [place] [address] Consulting Physician Urology 03/17/23 Ra Shell MD #[address] [address] Consulting Physician Colon and Rectal Surgery 06/08/23 documented as of this encounter
--- OUTSIDE RECORDS SUMMARY | 2024-12-20 13:02 | XMS_ITS | Encounter Summary ---
Author Organization [facility] Address [address] [facility] [place] [address] Phone Care Team Providers Care Rolled Oats Mill Operator Name Role Phone Adam Paul MD Primary Care Provider [phone] Robby Salinas MD Unavailable Rayshawn Umanzor MD Unavailable [phone] Ra Shell MD Unavailable Reason for Visit * Reason Comments Medication Refill Encounter Details Date Type Department Care Team (Late st Contact Info) Description 07/03/2020 Refill [facility] - Family Medicine [facility]2 [place] [phone] Adam Paul MD #[address] [address] Medication Refill Social History Tobacco Use Types [...] Telephone Encounter - Lisbeth Kapoor RN - 07/03/2020 2:39 PM CDT [place] PDMP 01/21/20 Medication failed the protocol, provider to review and approve the medication order if appropriate. Requested Prescriptions Pending Prescriptions Disp Refills ALPRAZolam (XANAX) 0.5 MG Tablet [Pharmacy Med Name: ALPRAZOLAM 0.5 MG TABLET] 90 Tablet 0 Sig: TAKE 1 TAB BY MOUTH 3 TIMES DAILY NEEDED FOR ANXIETY. Not Delegated - Psychiatry: Anxiolytics/Hypnotics Failed - 07/03/2020 10:06 AM Failed - This refill cannot be delegated Passed - Valid encounter within last 6 months Past Office Visits Recent Outpatient Visits 3 months ago Chronic joint pain [facility] - Adam Veras MD 7 months ago Rectal pain [facility] - [facility] Veras MD 1 year ago Anxiety [facility] - Adam Veras MD 2 years ago Chronic neck pain [facility] - Adam Veras MD 2 years ago Nausea [facility] - Adam Veras MD Upcoming Appointments Future Appointments In 3 weeks Rick Mcintosh MD [facility], [facility] TELEPHOTO ENGINEER - Recent and Past Visits Recent Visits Date Type Provider Dept 03/09/20 Office Visit Adam Paul MD [facility] 11/26/19 Office Visit Adam Paul MD [facility] 04/18/19 Office Visit Adam Paul MD [facility] Showing recent visits within past 460 days [...] [facility] - [place] #[address] [facility] [place] [place] [address] Adam Paul MD [facility]2 [facility] [address] [place] [address] 01/31/2025 11:45 AM CDT Office Visit [facility] #[address] [facility] [place] [address] Rayshawn Umanzor MD #2 [facility] [address] [place] [address] documented as of this encounter Visit Diagnoses Not on filedocumented in this encounter Additional Health Concerns Assessment Noted Time PHQ-9 Depression Total Score: 0 11/26/19 20 9:00 AM CDT documented as of this encounter Care Teams Rolled Oats Mill Operator Relationship Specialty Start Date End Date Adam Paul MD [facility]2 [facility] [address] [place] [address] PCP - General Family Medicine 02/19/15 Robby Salinas MD [facility]2 [facility] [address] [place] [address] Consulting Physician Orthopaedic Sports Medicine 04/18/16 Rayshawn Umanzor MD #2 [facility] [address] [place] [address] Consulting Physician Urology 03/17/23 Ra Shell MD #[address] [address] Consulting Physician Colon and Rectal Surgery 06/08/23 documented as of this encounter
--- OUTSIDE RECORDS SUMMARY | 2024-12-20 13:02 | XMS_ITS | Encounter Summary ---
Author Organization [facility] Address [address] [facility] [place] [address] Phone Care Team Providers Care Back Gray Cloth Washer Name Role Phone Adam Paul MD Primary Care Provider [phone] Robby Salinas MD Unavailable Rayshawn Umanzor MD Unavailable [phone] Ra Shell MD Unavailable Reason for Visit * Reason Comments Medication Refill Encounter Details Date Type Department Care Team (Late st Contact Info) Description 04/20/2020 Refill [facility] Medical Group - Family Medicine [facility] #2 [place] [phone] Adam Paul MD #[address] [address] Medication Refill Social History Tobacco Use Types [...] Telephone Encounter - Lisbeth Kapoor RN - 04/21/2020 9:41 AM CST Medication failed the protocol, provider to review and approve the medication order if appropriate. Requested Prescriptions Pending Prescriptions Disp Refills Acetaminophen-Codeine 300-60 MG Tablet [Pharmacy Med Name: ACETAMINOPHEN-COD #4 TABLET] 60 Tab 0 Sig: TAKE 1 TAB BY MOUTH 2 TIMES DAILY NEEDED FOR MODERATE OR MORE SEVERE PAIN. Not Delegated - Analgesics: Opioid Agonist Combinations Failed - 04/20/2020 11:19 AM Failed - This refill cannot be delegated Passed - Valid encounter within last 6 months Past Office Visits Recent Outpatient Visits 1 month ago [facility]as [facility] 4 months ago Rectal pain [facility] Adam Veras MD 1 year ago [facility]as MD 1 year ago Chronic neck pain [facility] Adam Veras MD 1 year ago [facility] Veras MD Upcoming Appointments Future Appointments In 6 days Rick Mcintosh MD [facility], [facility] In 1 month Adam Paul MD [facility] CHOKE REAMER - Recent and Past Visits Recent Visits Date Type Provider Dept 03/09/20 Office Visit Adam Paul MD [facility] 11/26/19 Office Visit Adam Paul MD [facility] 04/18/19 Office Visit Adam Paul MD [facility] Showing recent visits within past 460 days with a meds authorizing provider and meeting all other requirements Future Appointments Date Type Provider Dept 06/09/20 Appointment [facility] future appointments within next 90 days with a meds authorizing provider and meeting all other requirements RER TANBARK documented in this encounter Plan of Treatment Upcoming Encounters Date Type Department Care Team (Late st Contact Info) Description 12/23/2024 11:15 AM CDT Office Visit [facility] Medical Group - Family Medicine - [place] [facility] [place] [address] Adam Paul MD #2 [facility] [address] [place] [address] 01/31/2025 11:45 AM CDT Office Visit [facility] #2 [place] [address] Rayshawn Umanzor MD [address] [place] [address] documented as of this encounter Visit Diagnoses Diagnosis Chronic pain syndrome- Primary documented in this encounter Additional Health Concerns Assessment Noted Time PHQ-9 Depression Total Score: 0 11/26/19 20 9:00 AM CDT documented as of this encounter Care Teams Back Gray Cloth Washer Relationship Specialty Start Date End Date Adam Paul MD #[address] [place] [address] PCP - General Family Medicine 02/19/15 Robby Salinas MD [address] [place] [address] Consulting Physician Orthopaedic Sports Medicine 04/18/16 Rayshawn Umanzor MD #2 [facility] [address] [place] [address] Consulting Physician Urology 03/17/23 Ra Shell MD #2 [place] [address] Consulting Physician Colon and Rectal Surgery 06/08/23 documented as of this encounter
--- OUTSIDE RECORDS SUMMARY | 2024-12-20 13:02 | XMS_ITS | Encounter Summary ---
Author Organization [facility] Address [address] [facility] [place] [address] Phone Care Team Providers Care Duck Bill Operator Name Role Phone Adam Paul MD Primary Care Provider [phone] Robby Salinas MD Unavailable Rayshawn Umanzor MD Unavailable [phone] Ra Shell MD Unavailable Reason for Visit * Reason Comments Medication Refill Encounter Details Date Type Department Care Team (Late st Contact Info) Description 05/26/2020 Refill [facility] - Family [facility] #2 [place] [phone] Adam Paul MD #[address] [address] Medication Refill Social History Tobacco Use Types [...] have Coronavirus / COVID-19? No / Unsure 05/27/2020 1:06 PM WAISTBAND SETTER documented as of this encounter Miscellaneous Notes * Telephone Encounter - Imelda Murcia RN - 05/27/2020 9:24 AM CST Medication failed the protocol, provider to review and approve the medication order if appropriate. Requested Prescriptions Pending Prescriptions Disp Refills Acetaminophen-Codeine 300-60 MG Tablet [Pharmacy Med Name: ACETAMINOPHEN-COD #4 TABLET] 60 Tablet 0 Sig: TAKE 1 TAB BY MOUTH 2 TIMES DAILY NEEDED FOR MODERATE OR MORE SEVERE PAIN. Not Delegated - Analgesics: Opioid Agonist Combinations Failed - 05/26/2020 9:36 AM Failed - This refill cannot be delegated Passed - Valid encounter within last 6 months Past Office Visits Recent Outpatient Visits 2 months ago Chronic joint pain [facility] Adam Veras MD 6 months ago Rectal pain [facility] Adam Veras MD 1 year ago Anxiety [facility] Adam Garza MD 1 year ago [facility] MD 2 years ago [facility] Adam Garza MD Upcoming Appointments Future Appointments Today Rick Mcintosh MD [facility], [facility] In 1 week Adam Paul MD [facility] CLINICAL MEDICAL TRANSCRIPTIONIST - Recent and Past Visits Recent Visits Date Type Provider Dept 03/09/20 Office Visit Adam Paul MD [facility] 11/26/19 Office Visit Adam Paul MD [facility] 04/18/19 Office Visit Adam Paul MD [facility] Showing recent visits within past 460 days with a meds authorizing provider and meeting all other requirements Future Appointments Date Type Provider Dept 06/09/20 Appointment Adam Paul MD [facility] Showing future appointments within next 90 days with a meds authorizing provider and meeting all other requirements TBAND SETTER documented in this encounter Plan of Treatment Upcoming Encounters Date Type Department Care Team (Late st Contact Info) Description 12/23/2024 11:15 AM CDT Office Visit [facility] Medical Group - Family Medicine - [place] [address] [facility] [place] [address] Adam Paul MD #2 [facility] [address] [place] [address] 01/31/2025 11:45 AM CDT Office Visit [facility] #2 [facility] [place] [address] Rayshawn Umanzor MD #2 [facility] [address] [place] [address] documented as of this encounter Visit Diagnoses Diagnosis Chronic pain syndrome documented in this encounter Additional Health Concerns Assessment Noted Time PHQ-9 Depression Total Score: 0 11/26/19 20 9:00 AM CDT documented as of this encounter Care Teams Duck Bill Operator Relationship Specialty Start Date End Date Adam aPul MD #2 [facility] [address] [place] [address] PCP - General Family Medicine 02/19/15 Robby Salinas MD #2 [facility] [address] [place] [address] Consulting Physician Orthopaedic Sports Medicine 04/18/16 Rayshawn Umanzor MD #2 [facility] [address] [place] [address] Consulting Physician Urology 03/17/23 Ra Shell MD #2 [facility] [address] [place] [address] Consulting Physician Colon and Rectal Surgery 06/08/23 documented as of this encounter
--- OUTSIDE RECORDS SUMMARY | 2024-12-20 13:02 | XMS_ITS | Encounter Summary ---
Author Organization [facility] Address [address] [facility] [place] [address] Phone Care Team Providers Care Wire Preparation Machine Tender Name Role Phone Adam Paul MD Primary Care Provider [phone] Robby Salinas MD Unavailable Rayshawn Umanzor MD Unavailable [phone] Ra Shell MD Unavailable Reason for Visit * Reason Comments Medication Refill Encounter Details Date Type Department Care Team (Late st Contact Info) Description 05/28/2023 Refill [facility] Medical [facility] - Family Medicine [facility] #2 [place] [address] Adam Paul MD #[address] [address] Medication Refill Social History Tobacco Use Types Packs/Day Years Used Date Smoking Tobacco: Never Smokeless Tobacco: Current Chew Comments:one can a day, sinc e 1995 Alcohol Use Standard Drinks/Week Comments Not Currently 0 (1 standard drink = 0.6 oz pur e alcohol) rare [facility] Utilities Answer Date Recorded In the [...] or relatives? Twice a week 05/04/2023 Attends [employer] Services Not on file 05/04 Do you belong to any clubs o r organizations such as adventism groups, unions, fraternal or athletic groups, or [...] Total Score - Questions 1-9 0 11/02 [facility] - Occupational [...] place to sleep or slept in a retirement (including now)? No 05/04/2023 Education Answer Date [...] Telephone Encounter - Lisbeth Kapoor RN - 05/29/2023 12:43 PM CST Medication warning Per nursing clinical judgement, provider to review and approve the medication(s) order(s) if appropriate. Requested Prescriptions Pending Prescriptions Disp Refills montelukast (SINGULAIR) 10 MG Tablet [Pharmacy Med Name: MONTELUKAST SOD 10 MG TABLET] 90 Tablet 3 Sig: TAKE 1 TABLET BY MOUTH EVERY DAY IN THE EVENING Leukotriene Inhibitors Protocol Passed - 05/28/2023 7:25 AM Passed - Visit with relevant provider in past 12 months or upcoming 90 days Recent Visits Date Type Provider Dept 05/04/23 Office Visit Adam Paul MD [facility] 02/02/23 Telemedicine Adam Paul MD [facility] 12/26/22 Office Visit Adam Paul MD [facility] 08/03/22 Office Visit MohyAdam fields MD [facility] Showing recent visits within past 365 days and meeting all other requirements Future Appointments Date Type Provider Dept 08/07/23 Appointment Adam Paul MD [facility] Showing future appointments within next 90 days and meeting all other requirements CLERK documented in this encounter Plan of Treatment Upcoming Encounters Date Type Department Care Team (Late st Contact Info) Description 12/23/2024 11:15 AM CDT Office Visit [facility] Medical Group - Family Medicine [facility] #[address] [place] [address] Adam Paul MD #2 [facility] [address] [place] [address] 01/31/2025 11:45 AM CDT Office Visit [facility] #[address] [place] [address] Rayshawn Umanzor MD #2 [facility] [address] [place] [address] documented as of this encounter Visit Diagnoses Not on filedocumented in this encounter Additional Health Concerns Assessment Noted Time PHQ-9 Depression Total Score: 0 11/26/19 20 9:00 AM CDT documented as of this encounter Care Teams Wire Preparation Machine Tender Relationship Specialty Start Date End Date Adam Paul MD #2 [facility] [address] [place] [address] PCP - General Family Medicine 02/19/15 Robby Salinas MD #2 [facility] [address] [place] [address] Consulting Physician Orthopaedic Sports Medicine 04/18/16 Rayshawn Umanzor MD #2 [facility] [address] [place] [address] Consulting Physician Urology 03/17/23 Ra Shell MD #2 [facility] [address] [place] [address] Consulting Physician Colon and Rectal Surgery 06/08/23 documented as of this encounter
--- OUTSIDE RECORDS SUMMARY | 2024-12-20 13:02 | XMS_ITS | Encounter Summary ---
Author Organization [facility] Address [address] [facility] [place] [address] Phone Care Team Providers Care Engine Repairer Name Role Phone Adam Paul MD Primary Care Provider [phone] Robby Salinas MD Unavailable Rayshawn Umanzor MD Unavailable [phone] Ra Shell MD Unavailable Reason for Visit * Reason Comments Medication Refill Encounter Details Date Type Department Care Team (Late st Contact Info) Description 03/13/2024 Refill [facility] Medical Group - Family Medicine [facility] #2 [place] [address] Adam Paul MD #[address] [address] Medication Refill Social History Tobacco Use Types Packs/Day Years Used Date Smoking Tobacco: Never Smokeless Tobacco: Current Chew Comments:one can a day, sinc e 1995 Alcohol Use Standard Drinks/Week Comments Not Currently 0 (1 standard drink = 0.6 oz pur e alcohol) rare [facility] Utilities Answer Date Recorded In the past [...] or relatives? Twice a week 05/04/2023 Attends [employer] Not on file 05/04 Do you belong to any clubs o r organizations such as buddhism groups, unions, fraternal or athletic groups, or [...] Total Score - Questions 1-9 0 11/02 [facility]at ional Health - [...] to sleep or slept in a senior care (including now)? No 05/04/2023 Education Answer Date [...] Telephone Encounter - Lisbeth Kapoor RN - 03/15/2024 7:58 AM CST Reordered 03/13/24 OR POLICY ANALYST * Telephone Encounter - Lisbeth Kapoor RN - 03/13/2024 3:07 PM CST duplicate OR POLICY ANALYST documented in this encounter Plan of Treatment Upcoming Encounters Date Type Department Care Team (Late st Contact Info) Description 12/23/2024 11:15 AM CDT Office Visit [facility] - Family Medicine - [place] #[address] [place] [address] Adam Paul MD [address] [address] 01/31/2025 11:45 AM CDT [facility] [place] [address] Rayshawn Umanzor MD #2 [facility] [address] [place] [address] documented as of this encounter Visit Diagnoses Not on filedocumented in this encounter Additional Health Concerns Assessment Noted Time PHQ-9 Depression Total Score: 0 11/26/19 20 9:00 AM CDT documented as of this encounter Care Teams Engine Repairer Relationship Specialty Start Date End Date Adam Paul MD #2 [facility] [address] [place] [address] PCP - General Family Medicine 02/19/15 Robby Salinas MD #2 [facility] [address] [place] [address] Consulting Physician Orthopaedic Sports Medicine 04/18/16 Rayshawn Umanzor MD #[address] [facility] [address] [place] [address] Consulting Physician Urology 03/17/23 Ra Shell MD #2 [facility] [address] [place] [address] Consulting Physician Colon and Rectal Surgery 06/08/23 documented as of this encounter
--- OUTSIDE RECORDS SUMMARY | 2024-12-20 13:02 | XMS_ITS | Encounter Summary ---
Author Organization [facility] Address [address] [facility] [place] [address] Phone Care Team Providers Care Bible Worker Name Role Phone Adam Paul MD Primary Care Provider [phone] Robby Salinas MD Unavailable Rayshawn Umanzor MD Unavailable [phone] Ra Shell MD Unavailable Reason for Visit * Reason Comments Medication Refill Encounter Details Date Type Department Care Team (Late st Contact Info) Description 02/01/2022 Refill [facility] - Family [facility] #2 [place] [address] Adam Paul MD #[address] [address] Medication Refill Social History Tobacco Use Types [...] Telephone Encounter - Rachel Spencer RN - 02/01/2022 9:38 AM CDT Medication failed the protocol, provider to review and approve the medication order if appropriate. Requested Prescriptions Pending Prescriptions Disp Refills albuterol 108 (90 Base) MCG/ACT Aerosol Solution [Pharmacy Med Name: ALBUTEROL HFA (PROVENTIL) INH]2 Sig: take 1-2 Puffs by inhalation every 6 hours as needed for Wheezing. Short Acting Inhaled Beta-Agonists Protocol Passed - 02/01/2022 12:35 AM Passed - Visit with relevant provider in past 12 months or upcoming 90 days Recent Visits Date Type Provider Dept 07/28/21 Office Visit Adam Paul MD [facility] 04/28/21 Office Visit Adam Paul MD [facility] Showing recent visits within past 365 days and meeting all other requirements Future Appointments No visits were found meeting these conditions. Showing future appointments within next 90 days and meeting all other requirements documented in this encounter Plan of Treatment Upcoming Encounters Date Type Department Care Team (Late st Contact Info) Description 12/23/2024 11:15 AM CDT Office Visit [facility] Medical Group - Family Medicine - [place] #[address] [place] [address] Adam Paul MD #2 [facility] [address] [place] [address] 01/31/2025 11:45 AM CDT Office Visit [facility] #2 [place] [address] Rayshawn Umanzor MD #2 [facility] [address] [place] [address] documented as of this encounter Visit Diagnoses Not on filedocumented in this encounter Additional Health Concerns Assessment Noted Time PHQ-9 Depression Total Score: 0 11/26/19 20 9:00 AM CDT documented as of this encounter Care Teams Bible Worker Relationship Specialty Start Date End Date Adam Paul MD #2 [facility] [address] [place] [address] PCP - General Family Medicine 02/19/15 Robby Salinas MD #2 [facility] [address] [place] [address] Consulting Physician Orthopaedic Sports Medicine 04/18/16 Rayshawn Umanzor MD #2 [facility] [address] [place] [address] Consulting Physician Urology 03/17/23 Ra Shell MD #2 [facility] [address] [place] [address] Consulting Physician Colon and Rectal Surgery 06/08/23 documented as of this encounter
--- OUTSIDE RECORDS SUMMARY | 2024-12-20 13:02 | XMS_ITS | Encounter Summary ---
Author Organization [facility] Address [address] [facility] [place] [address] Phone Care Team Providers Care Can Bander Operator Name Role Phone Adam Paul MD Primary Care Provider [phone] Robby Salinas MD Unavailable Rayshawn Umanzor MD Unavailable [phone] Ra Shell MD Unavailable Reason for Visit * Reason Comments Medication Refill Encounter Details Date Type Department Care Team (Late st Contact Info) Description 11/11/2022 Refill [facility] Medical Group - Family Medicine [facility] #2 [place] [phone] Adam Paul MD #[address] [address] Medication Refill Social History Tobacco Use Types [...] Telephone Encounter - Lisbeth Kapoor RN - 11/11/2022 2:19 PM CDT PDMP 10/07/22 Medication failed the protocol, provider to review and approve the medication order if appropriate. Requested Prescriptions Pending Prescriptions Disp Refills ALPRAZolam (XANAX) 0.5 MG Tablet [Pharmacy Med Name: ALPRAZOLAM 0.5 MG TABLET] 90 Tablet 0 Sig: TAKE 1 TABLET BY MOUTH THREE TIMES A DAY NEEDED FOR ANXIETY Not Delegated - Benzodiazepines Protocol Failed - 11/11/2022 10:12 AM Failed - This refill cannot be delegated Passed - Visit with relevant provider in past 12 months or upcoming 90 days Recent Visits Date Type Provider Dept 08/03/22 Office Visit [facility] Showing recent visits within past 365 days and meeting all other requirements Future Appointments Date Type Provider Dept 12/22/22 Appointment Adam Paul MD [facility] Showing future appointments within next 90 days and meeting all other requirements documented in this encounter Plan of Treatment Upcoming Encounters Date Type Department Care Team (Late st Contact Info) Description 12/23/2024 11:15 AM CDT [facility] - [place] [address] [place] [address] Adam Paul MD [address] [address] 01/31/2025 11:45 AM CDT Office Visit [facility] #[address] [place] [address] Rayshawn Umanzor MD #2 [facility] [address] [place] [address] documented as of this encounter Visit Diagnoses Diagnosis Anxiety Anxiety state, unspecified documented in this encounter Additional Health Concerns Assessment Noted Time PHQ-9 Depression Total Score: 0 11/26/19 20 9:00 AM CDT documented as of this encounter Care Teams Can Bander Operator Relationship Specialty Start Date End Date Adam Paul MD #2 [facility] [address] [place] [address] PCP - General Family Medicine 02/19/15 Robby Salinas MD #2 [facility] [address] [place] [address] Consulting Physician Orthopaedic Sports Medicine 04/18/16 Rayshawn Umanzor MD #[address] [facility] [address] [place] [address] Consulting Physician Urology 03/17/23 Ra Shell MD #2 [facility] [address] [place] [address] Consulting Physician Colon and Rectal Surgery 06/08/23 documented as of this encounter
--- OUTSIDE RECORDS SUMMARY | 2024-12-20 13:02 | XMS_ITS | Encounter Summary ---
Author Organization [facility] Address [address] [place] [address] Phone Care Team Providers Care Investigation Officer Name Role Phone Adam Paul MD Primary Care Provider [phone] Robby Salinas MD Unavailable Rayshawn Umanzor MD Unavailable [phone] Ra Shell MD Unavailable Reason for Visit * Reason Comments Medication Refill Encounter Details Date Type Department Care Team (Late st Contact Info) Description 01/16/2020 Refill [facility] - Family Medicine [facility] [place] [address] [place] [id number] Adam Paul MD [address] [address] Medication Refill Social History Tobacco Use Types [...] have Coronavirus / COVID-19? No / Unsure 01/09/2020 11:00 AM CDT documented as of this encounter Miscellaneous Notes * Telephone Encounter - Elodia Simon RN - 01/17/2020 8:07 AM CDT Requested Prescriptions Pending Prescriptions Disp Refills albuterol 108 (90 Base) MCG/ACT Aerosol Solution [Pharmacy Med Name: ALBUTEROL HFA (PROAIR) INHALER] 8.5 Inhaler 0 Sig: INHALE 2 PUFFS BY MOUTH EVERY 4 HOURS NEEDED FOR WHEEZE Pulmonology: Beta Agonists - Albuterol & Levalbuterol Failed - 01/16/2020 1:48 PM Failed - May refill 2 inhalers, 0 refills one time since last office visit. May refill #50 nebulizer vials, 0 refills for albuterol or #48 vials, 0 refills for Xopenex one time since last office visit. Passed - Valid encounter within last 6 months Past Office Visits Recent Outpatient Visits 1 month ago Rectal pain [facility] - Family Medicine - Adam Veras MD 9 months ago Anxiety [facility] - Adam Veras MD 1 year ago Chronic neck pain [facility] - Adam Veras MD 1 year ago Nausea [facility] - Adam Veras MD 1 year ago Chronic right shoulder pain [facility] Cervantes APN, NUT FEEDER 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 Showing future appointments within next 90 days with a meds authorizing provider and meeting all other requirements Passed - Last BP in normal range BP Readings from Last 1 Encounters: 11/26/19 128/68 ALPRAZolam (XANAX) 0.5 MG Tablet [Pharmacy Med Name: ALPRAZOLAM 0.5 MG TABLET] 90 Tab 0 Sig: Take 1 Tab by mouth 3 times daily as needed for Anxiety. 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 Showing recent visits within past 460 days [...] Description 12/23/2024 11:15 AM CDT [facility] [place] [address] Adam Paul MD [address] [address] 01/31/2025 11:45 AM CDT [facility] [address] [place] [address] Rayshawn Umanzor MD [address] [facility] [address] [place] [address] documented as of this encounter Visit Diagnoses Not on filedocumented in this encounter Additional Health Concerns Assessment Noted Time PHQ-9 Depression Total Score: 0 11/26/19 20 9:00 AM CDT documented as of this encounter Care Teams Investigation Officer Relationship Specialty Start Date End Date Adam Paul MD [address] [facility] [address] [place] [address] PCP - General Family Medicine 02/19/15 Robby Salinas MD [address] [facility] [address] [place] [address] Consulting Physician Orthopaedic Sports Medicine 04/18/16 Rayshawn Umanzor MD [address] [facility] [address] [place] [address] Consulting Physician Urology 03/17/23 Ra Shell MD [address] [facility] [address] [place] [address] Consulting Physician Colon and Rectal Surgery 06/08/23 documented as of this encounter
--- OUTSIDE RECORDS SUMMARY | 2024-12-20 13:02 | XMS_ITS | Clinical Summary ---
Author Organization [facility] Address [address] [place] [address] Care Team Providers Care Shuttle Veneering Supervisor Name Role Phone Adam Paul MD Primary Care Provider [phone] Hank Beltran MD Unavailable [phone] Abhishek Apple MD Unavailable [phone] Puma Delgado OT Unavailable Unavailable Peter Dinh Unavailable Allergies Active Allergy Reactions Criticality Noted Date Comments Adhesive Tape-Silicones Itching,Swelling Medium 11/10/2021 Aspirin Anaphylaxis,Itching, Sw elling High Duloxetine Agitation Low 11/10/2020 Ibuprofen Hives,Swelling,Itching High 04/20/2015 Throat swells shut Gum Pgpplr-Lesjnj-Fcpx-Al cohol Blisters High 04/18/2017 DO NOT USE ON SURGICAL SITES Naproxen Hives,Swelling,Itching High 04/20/2015 Throat swells shut Nsaids (Non-Steroidal Anti-Inflammatory Drug) Anaphylaxis High Other Itching Low 05/13/2016 Skin glue made skin red & itchy Skin glue made skin red & itchy Skin glue made skin red & itchy Povidone-Iodine Hives,Rash,Itching,S we lling Medium 04/06/2017 Blisters Blisters Tobramycin-Dexamethas one Rash Medium Tolmetin Hives,Swelling High 08/20/2015 Throat swells shut Throat swells shut Throat swells shut Throat swells shut Throat swells shut Tramadol Itching Low I feel out of it. Medications albuterol HFA (PROVENTIL HFA,VENTOLIN HFA,PROAIR HFA) 90 mcg/actuation inhaler Inhale 2 puffs every 4 (four) hours as needed 8 Active montelukast (SINGULAIR) 10 mg tablet Take 1 tablet (10 mg total) by mouth nightly 0 Active naloxone (NARCAN) 4 mg/actuation spray,non-aeroso l Administer 1 spray into affected nostril(s) as needed for opioid reversal or respiratory depression 1 each 1 Active tamsulosin (FLOMAX) 0.4 mg extended release capsule Take 1 capsule (0.4 mg total) by mouth daily for 5 days 5 capsule 2 Active desmopressin (DDAVP) 0.2 mg tablet Take 1 tablet (200 mcg total) by mouth nightly 1 Active meclizine (ANTIVERT) 25 mg tablet Take 1 tablet (25 mg total) by mouth 2 (two) times a day 2 Active rosuvastatin (CRESTOR) 10 mg tablet Take 1 tablet (10 mg total) by mouth daily 2 Active gabapentin (NEURONTIN) 400 mg capsule Take 1 capsule (400 mg total) by mouth 3 (three) times a day 4 Active rOPINIRole (REQUIP) 0.25 mg tablet Take 1 tablet (0.25 mg total) by mouth nightly 4 Active mupirocin (BACTROBAN) 2 % ointmentIndicati ons:Methicillin- Resistant S. Aureus Nasal Colonization Apply to each nostril once the morning before surgery. Apply a second dose to each nostril the evening of the day before surgery (12 hours after initial application). Apply a third dose to each nostril the morning of surgery 22 g 5 Active apixaban (ELIQUIS) 2.5 mg tablet Take 1 tablet (2.5 mg total) by mouth 2 (two) times a day for 28 days 56 tablet 5 Active ascorbic acid (VITAMIN C) 500 mg tablet,chewable Take 1 tablet/chew tab (500 mg total) by mouth 2 (two) times a day 60 tablet/chew tab 5 Active cholecalciferol (VITAMIN D-3) 2000 unit capsule Take 1 capsule (2,000 Units total) by mouth daily 30 capsule 5 Active ondansetron (ZOFRAN) 4 mg tabletIndication s:Prevention of Post-Operative Nausea and Vomiting Take 1 tablet (4 mg total) by mouth every 6 (six) hours as needed for nausea or vomiting 30 tablet 1 5 Active senna-docusate (PERICOLACE) 8.6-50 mg Take 1 tablet by mouth 2 (two) times a day as needed for constipation 60 tablet 1 5 Active cetirizine (ZyrTEC) 10 mg tablet Take 1 tablet (10 mg total) by mouth daily 30 tablet 5 Active famotidine (PEPCID) 20 mg tablet Take 1 tablet (20 mg total) by mouth 2 (two) times a day 60 tablet 5 Active methylPREDNISolo ne (Medrol, Joesph,) 4 mg Dosepack Take as directed on package 1 packet 5 Active cyclobenzaprine (FLEXERIL) 10 mg tablet Take 1 tablet (10 mg total) by mouth 3 (three) times a day as needed for muscle spasms 45 tablet 1 5 Active oxyCODONE-acetam inophen (PERCOCET) 5-325 mg per tabletIndication s:Pain Take 1 tablet by mouth every 8 (eight) hours as needed for pain 21 tablet 5 Active Active Problems Problem Noted Date Diagnosed Date Primary osteoarthritis of right knee 05/15/2024 Arthritis 09/25/2023 Asthma 09/25/2023 BPH with obstruction/lower urinary tract symptom s 12/26/2022 Esophagitis 09/18/2022 Asbestos exposure 08/03/2022 retirement (current) use of opiate analgesic 11/02 Bilateral hearing loss 07/28/2021 DDD (degenerative disc disease), lumbar 09/22/19 21 Degenerative cervical spinal stenosis 09/15/2020 Degenerative disc disease, cervical 09/15/2020 Cervical radiculopathy 09/15/2020 Chronic bilateral low back pain with right-sided sciatica 09/15/2020 Cervicalgia 09/15/2020 Lumbar radiculopathy 11/15/2019 Chronic narcotic dependence 04/18/2019 Mild intermittent asthma without complication Moderate persistent asthma 04/18/2019 Fx sacrum/coccyx-closed 09/24/2018 Cervical spondylosis with myelopathy 09/24/2018 Other tear of medial meniscu s, current injury, left knee, initial encounter 05/03/2018 Overview (05/03/2018): Added automatically from request for surgery [id number] Obesity (BMI 30-39.9) 01/31/2018 Chronic prescription benzodiazepine use 07/01/19 18 Tear of right rotator cuff 06/29/2017 Overview (06/29/2017): Added automatically from request for surgery [id number] Tobacco abuse 05/25/2016 Right rotator cuff tendonitis 05/13/2016 Chronic right shoulder pain 05/06/2016 Elevated liver enzymes 05/06/2016 Carpal tunnel syndrome 04/18/2016 Cervical spondylosis 04/18/2016 Spinal cord lesion 04/18/2016 Kidney stone 08/20/2015 History of kidney stones 07/27/2015 Adjustment disorder with mixed anxiety and depre ssed mood 07/09/2015 Insomnia secondary to chronic pain 07/09/2015 Hyperlipidemia 05/28/2015 Anxiety 05/14/2015 B12 deficiency 05/14/2015 Vitamin D deficiency 05/14/2015 Ankle pain 09/23/2014 Overview (07/07/2016): Ankle pain Resolved Problems Problem Noted Date Diagnosed Date Resolved Date Lumbar spondylosis with righ t L5 radiculopathy 09/25/2019 11/15/2019 Calculus of gallbladder 05/13/201304/03 Overview (07/06/2016): Gallstones Encounters Date Type Department Care Team Description 11/18/2024 9:15 AM CDT Office Visit [facility] Orthopedics and Sports Medicine [address] [place] [phone] Bryn Mitchell MD Pes anserinus bursitis of right knee (Primary Dx); Contracture of both hamstrings 11/18/2024 Orders Only [facility] Sports Medicine [address] [facility] [address] [place] [address] Bryn Mitchell MD Pes anserinus bursitis of right knee (Primary Dx); Contracture of both hamstrings; Status post total knee replacement, right 10/09/2024 10:40 AM CDT - 10/09/2024 11:59 PM CDT Hospital Encounter [facility] [address] [place] [address] Radiculopathy, lumbar region Discharge Disposition: Discharge to home or self care 09/23/2024 Telephone [facility] Medical [facility] Orthopedics and Sports Medicine [address] [facility] [address] [place] [address] Bryn Mitchell MD from Last 3 Months Surgical History Surgery Date Site/Laterality Comments KNEE SURGERY left knee surgery LAPAROSCOPIC CHOLECYSTECTOMY 04/03/2013 - 04/02/2014 laparoscopic cholecystectomy SHOULDER ARTHROSCOPY 05/04/2016 - 05/31/2016 Right SHOULDER ARTHROSCOPY 11/01/2016 - 12/01/2016 Right FLUORO GUIDED INJECTION HIP RIGHT 10/24/2022 Right LUMBAR PUNCTURE WO INJECTION, DIAGNOSTIC 04/28/2016 N/A MENISCUS SURGERY Bilateral SPINE SURGERY neck disc replacement and back surgery Medical History Medical History Date Comments Asthma Asthma Anxiety Spinal cord lesion (HCC) Dr. Louise lyons, Neurologist at [facility] Migraines Lumbar spondylosis with righ t L5 radiculopathy 09/25/2019 Chronic pain disorder Neck pain Low back pain Family History Medical History Relation Name Comments Cancer Other 1 Family history of Cancer; Heart disease Other 2 Family history of Heart disease; Lung disease Other 3 Family history of Lung problems; Arthritis Other 4 Family history of Arthritis; Other Other 5 Family history of early heart attack, hypertension, cancer and arthritis.; Coronary artery disease Paternal Grandfather Coronary artery disease; Relation Name Status Comments Other 1 Other 2 Other 3 Other 4 Other 5 Paternal Grandfather Social History Tobacco Use Types Packs/Day Years Used Date Smoking Tobacco: Never Smokeless Tobacco: Current Chew Tobacco Cessation:Ready to Q uit: Not Asked; Counseling Given: Not Answered Alcohol Use Standard Drinks/Week Comments Yes 0 (1 standard drink = 0.6 oz pur e alcohol) AUDIT-C Answer Date Recorded Q1: How often do you have a drink containing alcohol? Never 07/30/2024 Q2: How many drinks containi ng alcohol do you have on a typical day when you are drinking? Patient does not drink Q3: How often do you have si x or more drinks on one occasion? Never 07/30/2024 PHQ-2 Answer Date Recorded PHQ-2 Total Score (If total score is 3 or more points, staff should administer the PHQ-9) 0 05/30/2024 PHQ-9 Answer Date Recorded PHQ-9 Total Score 1 05/30/2024 Personal Safety Answer Date Recorded Have you ever been in or are you currently in a harmful physical or emotional relationship or is someone making you feel afraid or unsafe? Denies 06/04/2024 Sex and Gender Information Value Date Recorded Sex Assigned at Not on file Legal Sex Male 11:28 PM IT HELP DESK ASSOCIATE Gender Identity Not on file Sexual Orientation Not on file Obstetrics History Last Filed Vital Signs Vital Sign Reading Time Taken Comments Blood Pressure 120/86 11/18/2024 9:39 AM CDT Pulse 76 11/18/2024 9:39 AM CDT Temperature 36.6 C (97.9 F) 06/04/2024 4:25 PM IT HELP DESK ASSOCIATE Respiratory Rate 18 06/19/2024 9:53 AM CDT Oxygen Saturation 98% 06/04/2024 4:25 PM IT HELP DESK ASSOCIATE Inhaled Oxygen Concentration - - Weight 110.7 kg (244 lb) 11/18/2024 9:39 AM CDT Height 170.2 cm (5' 7) 11/18/2024 9:39 AM CDT Body Mass Index 38.22 11/18/2024 9:39 AM CDT Plan of Treatment Health Maintenance Due Date Last Done Comments Colon Cancer Screening-Colonoscopy 1973 Hepatitis C Screening 1973 Prostate Cancer Screening-PSA 1973 DTaP/Tdap/Td Vaccine (1 - Tdap) 1984 Hepatitis B Screening 10/05/1991 Regular Well Visit/Exam 18-64 10/05/1991 Pneumococcal vaccine <65 (1 of 2 - PCV) 1992 Zoster Vaccine (1 of 2) 10/05/2023 Influenza Vaccine (#1) 2024 01/11/2020 Depression Screening 05/30/2025 05/30/2024, 05/30/2024, 02/27/2024, Additional history exists Goals Goal Patient Goal Type Associated Problems Recent Progress Patient-Stated? Author [facility] Rosalinda Fair, RN Note: Patient will establish a comfort-function goal and identify the pain level that will allow the patient to perform desired activities and achieve an acceptable quality of life. Medical Devices Implanted Type Area Lap Cutter Device Identifier Shelf Expiration Date Model / Serial / Lot Tendon Anchors Implanted:Qty: 4 on 07/20/2017 by Bryn Mitchell MD at [facility] Right: Shoulder [employer] 02/20/2018 2504-1 / 2504-1 / [id number] Bone Anchors (3) Implanted:Qty: 2 on 07/20/2017 by Bryn Mitchell MD at [facility] Right: Shoulder [employer] 05/26/2018 2503-A / 2503-A / [id number] Rotation Medical Reconstituted Collagen Scaffold - Arthroscopic, Large Implanted:Qty: 1 on 07/20/2017 by Bryn Mitchell MD at [facility] Right: Shoulder [employer] 12/31/2018 2169-3 / 2169-3 / [id number] [employer] Attune Cruciate Retain Cementless Knee Right 6 Component Femoral [id number] - [id number] Implanted:Qty: 1 on 06/04/2024 by Bryn Mitchell MD at [facility] Right: Knee [employer] [id number] 02/01/2032 [id number] / / [id number] [employer] Insert Tibial Attune Right Medial Stabilized Sz 6 6mm Fixed Bearing Polyethylene [id number] - [id number] Implanted:Qty: 1 on 06/04/2024 by Bryn Mitchell MD at [facility] Right: Knee [employer] [id number] 01/01/2032 [id number] / / [id number] [employer] Attune Fb Tib Base Sz 7 Por [id number] - [id number] Implanted:Qty: 1 on 06/04/2024 by Bryn Mitchell MD at [facility] Right: Knee [employer] [id number] 01/31/2033 [id number] / / [id number] Procedures Procedure Name Priority Date/Time Associated Diagnosis Comments MRI LUMBAR SPINE W WO CONTRAST Schedule Routine, Read Routine (OP Routine) 10/09/2024 12:01 PM CDT Radiculopathy, lumbar region from Last 3 Months Results * MRI Lumbar Spine W WO Contrast (10/09/2024 12:01 PM CDT) Anatomical Region Laterality Modality Spine N/A Magnetic Resonan ce 10/10/2024 7:34 AM CDT Narrative 10/10/2024 7:42 AM CDT EXAM DESCRIPTION: MRI LUMBAR SPINE W WO CONTRAST REASON FOR STUDY: RADICULOPATHY, LUMBAR REGION Low back pain and right leg pain. Right leg gives out. This has worsened since knee replacement in June 2024. Prior surgery lower back. TECHNIQUE: Sagittal and Axial imaging includes T1, T1 post gadolinium, T2, and STIR sequences. CONTRAST TYPE/DOSE: 20mL of GADOTERATE MEGLUMINE 0.5 MMOL/ML INTRAVENOUS SOLUTION (SO) injected via intravenous COMPARISON: Lumbar spine MRI dated 05/10/2023, 08/15/2022, 12/14/2021 and 11/04/2019. Lumbar spine radiographs dated 11/15/2019. FINDINGS: SEGMENTATION: In keeping with the nomenclature used on lumbar spine MRI dated 11/04/2019 assumption is made for the last well-formed disc space seen on series 8, image 41 to be labeled L5-S1 ALIGNMENT: Mild retrolisthesis of L1 on L2, L2 on L3 and L3 on L4. VERTEBRAE: No acute compression fracture in the lumbar spine. The T12 superior endplate Schmorl's node/chronic deformity is again seen. Multilevel endplate degenerative changes. Relative T1 hypointense bone marrow signal as noted on the previous examinations and request clinical correlation. Rounded T1 and T2 hyperintense signal in the L1, L4 and L5 vertebral bodies could reflect intraosseous hemangiomas and/or focal fatty marrow. DISC HEIGHT: Multilevel intervertebral disc height loss. HARDWARE: None in the spine. CORD/CAUDA: Conus medullaris terminates at T12-L1. INDIVIDUAL DISC LEVELS: T12-L1: Disc bulge and superimposed small central disc protrusion with annular fissure. Bilateral facet arthropathy. No significant spinal canal or neural foraminal narrowing. L1-L2: Retrolisthesis L1 on L2 with unroofing of the disc. Superimposed small central disc protrusion with annular fissure. Thickened ligamentum flavum and facet arthropathy. Flattening of the ventral thecal sac. No significant neural foraminal narrowing. L2-L3: Retrolisthesis of L2 on L3 with unroofing of the disc. Bilateral facet arthropathy trace facet joint effusion. No significant spinal canal stenosis. Disc indents the right ventral thecal sac. Mild bilateral neural foraminal narrowing. L3-L4: Surgical level. Disc bulge and superimposed right neural foraminal disc protrusion with annular fissure. Bilateral facet arthropathy. No significant spinal canal stenosis. Mild inferior left neural foraminal narrowing. Severe right neural foraminal narrowing with disc protrusion contacting the right L3 nerve root. L4-L5: Disc bulge with bilateral facet arthropathy. Small central disc protrusion. No significant spinal canal or right neural foraminal narrowing. Obwr-ui-wzcebzba left neural foraminal narrowing. L5-S1: No significant disc bulge, spinal canal or neural foraminal narrowing. VISUALIZED UPPER ABDOMEN: Note made of nonspecific retroperitoneal lymph nodes. Request correlation and in the need for dedicated imaging as clinically indicated. IMPRESSION: 1. The multilevel lumbar disc degeneration with thickened ligamentum flavum and facet arthropathy as seen on the lumbar spine MRI dated 05/10/2023. No high-grade spinal canal stenosis. 2. Varying degrees of bilateral neural foraminal narrowing is most noticeable on the right at L3-L4 where the disc protrusion contacts the exiting right L3 nerve root. 3. Other findings as above. THIS IS AN ELECTRONICALLY VERIFIED FINAL REPORT 10/10/2024 7:42 AM - Electronically signed by Chris Santos D.O. AP: AP Report ID: [id number] Reading Location: [id number] Procedure Note Chris Santos, DO - 10/10/2024 EXAM DESCRIPTION: MRI LUMBAR SPINE W WO CONTRAST REASON FOR STUDY: RADICULOPATHY, LUMBAR REGION Low back pain and right leg pain. Right leg gives out. This has worsenedsince knee replacement in June 2024. Prior surgery lower back. TECHNIQUE: Sagittal and Axial imaging includes T1, T1 post gadolinium, T2,and STIR sequences. CONTRAST TYPE/DOSE: 20mL of GADOTERATE MEGLUMINE 0.5 MMOL/ML INTRAVENOUS SOLUTION (SO) injected via intravenous COMPARISON: Lumbar spine MRI dated 05/10/2023, 08/15/2022, 2and 11/04/2019. Lumbar spine radiographs dated 11/15/2019. FINDINGS: SEGMENTATION: In keeping with the nomenclature used on lumbar spine MRI dated 11/04/2019 assumption is made for the last well-formed disc spaceseen on series 8, image 41 to be labeled L5-S1 ALIGNMENT: Mild retrolisthesis of L1 on L2, L2 on L3 and L3 on L4. VERTEBRAE: No acute compression fracture in the lumbar spine. The T12 superior endplate Schmorl's node/chronic deformity is again seen.Multilevel endplate degenerative changes. Relative T1 hypointense bone marrow signalas noted on the previous examinations and request clinical correlation.Rounded T1 and T2 hyperintense signal in the L1, L4 and L5 vertebral bodies could reflect intraosseous hemangiomas and/or focal fatty marrow. DISC HEIGHT: Multilevel intervertebral disc height loss. HARDWARE: None in the spine. CORD/CAUDA: Conus medullaris terminates at T12-L1. INDIVIDUAL DISC LEVELS: T12-L1: Disc bulge and superimposed small central disc protrusion withannular fissure. Bilateral facet arthropathy. No significant spinal canal orneural foraminal narrowing. L1-L2: Retrolisthesis L1 on L2 with unroofing of the disc. Superimposedsmall central disc protrusion with annular fissure. Thickened ligamentum flavumand facet arthropathy. Flattening of the ventral thecal sac. No significant neural foraminal narrowing. L2-L3: Retrolisthesis of L2 on L3 with unroofing of the disc. Bilateralfacet arthropathy trace facet joint effusion. No significant spinal canalstenosis. Disc indents the right ventral thecal sac. Mild bilateral neuralforaminal narrowing. L3-L4: Surgical level. Disc bulge and superimposed right neural foraminal disc protrusion with annular fissure. Bilateral facet arthropathy. No significant spinal canal stenosis. Mild inferior left neural foraminal narrowing. Severe right neural foraminal narrowing with disc protrusion contacting the right L3 nerve root. L4-L5: Disc bulge with bilateral facet arthropathy. Small central disc protrusion. No significant spinal canal or right neural foraminalnarrowing. Gxul-rh-xzjubrrr left neural foraminal narrowing. L5-S1: No significant disc bulge, spinal canal or neural foraminalnarrowing. VISUALIZED UPPER ABDOMEN: Note made of nonspecific retroperitoneal lymph nodes. Request correlation and in the need for dedicated imaging as clinically indicated. IMPRESSION: 1. The multilevel lumbar disc degeneration with thickened ligamentumflavum and facet arthropathy as seen on the lumbar spine MRI dated 05/10/2023.No high-grade spinal canal stenosis. 2. Varying degrees of bilateral neural foraminal narrowing is most noticeable on the right at L3-L4 where the disc protrusion contacts the exiting right L3 nerve root. 3. Other findings as above. THIS IS AN ELECTRONICALLY VERIFIED FINAL REPORT 10/10/2024 7:42 AM - Electronically signed by Chris Santos D.O. AP: AP Report ID: [id number] Reading Location: [place] [address] Jesus Warren MD IM MRI PROCEDURES Final Result from Last 3 Months Insurance [facility] [facility] MED[facility] ADVANTAGE [facility] Address: [address] [place] [phone] [facility] Address: [address] [place] [phone] [employer] [facility] MEDIC[facility] [employer]VANTAGE [facility] Address: [place] [id number] Advance Directives For more information, please contact: [phone] * Full Code (Latest Code Status on File) Date Activated Date Inactivated Comments 06/04/2024 11:17 AM 06/04/2024 8:56 PM Care Teams Shuttle Veneering Supervisor Relationship Specialty Start Date End Date Adam Paul MD [address] [place] [address] PCP - General Family Medicine 10/11/16 Hank Beltran MD [address] [place] [address] Anesthesiologist Pain Management 03/14/22 Abhishek Apple MD [address] [place] [address] Consulting Physician Anesthesiology 02/27/24 Puma Delgado, OT Occupational Therapist Occupational Therapy 05/24/24 Peter Dinh PA [address] [place] [address] [address] [place] [address] Orthopedic Surgery 06/04/24
--- OUTSIDE RECORDS SUMMARY | 2024-12-20 13:02 | XMS_ITS | Encounter Summary ---
Author Organization [facility] Address [address] [facility] [place] [address] Phone Care Team Providers Care Professor Of Biological Sciences Name Role Phone Adam Paul MD Primary Care Provider [phone] Robby Salinas MD Unavailable Rayshawn Umanzor MD Unavailable [phone] Ra Shell MD Unavailable Reason for Visit * Reason Comments Medication Refill Encounter Details Date Type Department Care Team (Late st Contact Info) Description 10/05/2021 Refill [facility] - Family Medicine [facility] #2 [place] [phone] Adam Paul MD #[address] [address] Medication Refill Social History Tobacco Use Types [...] encounter Miscellaneous Notes * Telephone Encounter - Brittany Calloway RN - 10/06/2021 8:31 AM CDT Medication failed the protocol, provider to review and approve the medication order if appropriate.PDMP reviewed. Receives hydrocodone from another doctor. Last UDS was 06/2021 Requested Prescriptions Pending Prescriptions Disp Refills meclizine (ANTIVERT) 25 MG Tablet [Pharmacy Med Name: MECLIZINE 25 MG TABLET] 60 Tablet 1 Sig: Take 1 Tablet by mouth every 12 hours as needed for Dizziness or Nausea. Not Delegated - Off Protocol Failed - 10/05/2021 10:57 AM Failed - This refill cannot be delegated Passed - Visit with relevant provider in past 12 months or upcoming 90 days Recent Visits Date Type Provider Dept 07/28/21 Office Visit Adam Paul MD [facility] 04/28/21 Office Visit [facility] MD [facility] [...] Not Delegated - Benzodiazepines Protocol Failed - 10/05/2021 10:59 AM Failed - This refill cannot be delegated Passed - Visit with relevant provider in past 12 months or upcoming 90 days Recent Visits Date Type Provider Dept 07/28/21 Office Visit Adam Paul MD [facility] 04/28/21 Office Visit Adam Paul MD [facility] 01/22/21 Office Visit Adam Paul MD [facility] 10/22/20 Office Visit Adam Paul MD [facility] [place] Showing recent visits within past 365 days and meeting all other requirements Future Appointments No visits were found meeting these conditions. Showing future appointments within next 90 days and meeting all other requirements documented in this encounter Plan of Treatment Upcoming Encounters Date Type Department Care Team (Late st Contact Info) Description 12/23/2024 11:15 AM CDT Office Visit [facility] - Family Medicine - [place] #[facility] [place] [address] Adam Paul MD #2 [facility] [address] [place] [address] 01/31/2025 11:45 AM CDT Office Visit [facility] #2 [place] [address] Rayshawn Umanzor MD #2 [facility] [address] [place] [address] documented as of this encounter Visit Diagnoses Diagnosis Anxiety Anxiety state, unspecified documented in this encounter Additional Health Concerns Assessment Noted Time PHQ-9 Depression Total Score: 0 11/26/19 20 9:00 AM CDT documented as of this encounter Care Teams Professor Of Biological Sciences Relationship Specialty Start Date End Date Adam Paul MD #2 [facility] [address] [place] [address] PCP - General Family Medicine 02/19/15 Robby Salinas MD #2 [facility] [address] [place] [address] Consulting Physician Orthopaedic Sports Medicine 04/18/16 Rayshawn Umanzor MD #2 [facility] [address] [place] [address] Consulting Physician Urology 03/17/23 Ra Shell MD #2 [facility] [address] [place] [address] Consulting Physician Colon and Rectal Surgery 06/08/23 documented as of this encounter
--- OUTSIDE RECORDS SUMMARY | 2024-12-20 13:02 | XMS_ITS | Encounter Summary ---
Author Organization [facility] Address [address] [facility] [place] [address] Phone Care Team Providers Care Clerical Adjudicator Name Role Phone Adam Paul MD Primary Care Provider [phone] Robby Salinas MD Unavailable Rayshawn Umanzor MD Unavailable [phone] Ra Shell MD Unavailable Reason for Visit * Reason Comments Medication Refill Encounter Details Date Type Department Care Team (Late st Contact Info) Description 10/06/2022 Refill [facility] - Family Medicine [facility] #2 [place] [address] Adam Paul MD #[address] [address] Medication Refill Social History Tobacco Use Types [...] Telephone Encounter - Lisbeth Kapoor RN - 10/06/2022 5:28 PM CDT PDMP Alprazolam 08/17/22 Medication failed the protocol, provider to review and approve the medication order if appropriate. Requested Prescriptions Pending Prescriptions Disp Refills meclizine (ANTIVERT) 25 MG Tablet [Pharmacy Med Name: MECLIZINE 25 MG TABLET] 60 Tablet 1 Sig: TAKE 1 TABLET BY MOUTH EVERY 12 HOURS NEEDED FOR DIZZINESS OR NAUSEA. Not Delegated - Off Protocol Failed - 10/06/2022 10:10 AM Failed - This refill cannot be delegated Passed - Visit with relevant provider in past 12 months or upcoming 90 days Recent Visits Date Type Provider Dept 08/03/22 Office Visit Adam Paul MD [facility] Showing recent visits within past 365 days and meeting all other requirements Future Appointments Date Type Provider Dept 11/03/22 Appointment Adam Paul MD [facility] Showing future appointments within next 90 days and meeting all other requirements ALPRAZolam (XANAX) 0.5 MG Tablet [Pharmacy Med Name: ALPRAZOLAM 0.5 MG TABLET] 90 Tablet 0 Sig: TAKE 1 TABLET BY MOUTH THREE TIMES A DAY NEEDED FOR ANXIETY Not Delegated - Benzodiazepines Protocol Failed - 10/06/2022 10:11 AM Failed - This refill cannot be delegated Passed - Visit with relevant provider in past 12 months or upcoming 90 days Recent Visits Date Type Provider Dept 08/03/22 Office Visit Adam Paul MD [facility] Showing recent visits within past 365 days and meeting all other requirements Future Appointments Date Type Provider Dept 11/03/22 Appointment Adam Paul MD [facility] Showing future appointments within next 90 days and meeting all other requirements documented in this encounter Plan of Treatment Upcoming Encounters Date Type Department Care Team (Late st Contact Info) Description 12/23/2024 11:15 AM CDT [facility] #[address] [facility] [place] [address] Adam Paul MD #2 [facility] [address] [place] [address] 01/31/2025 11:45 AM CDT Office Visit [facility] #[address] [place] [address] Rayshawn Umanzor MD [facility] [address] [place] [address] documented as of this encounter Visit Diagnoses Diagnosis Anxiety Anxiety state, unspecified documented in this encounter Additional Health Concerns Assessment Noted Time PHQ-9 Depression Total Score: 0 11/26/19 20 9:00 AM CDT documented as of this encounter Care Teams Clerical Adjudicator Relationship Specialty Start Date End Date Adam Paul MD [facility] [address] [place] [address] PCP - General Family Medicine 02/19/15 Robby Salinas MD [facility]2 [facility] [address] [place] [address] Consulting Physician Orthopaedic Sports Medicine 04/18/16 Rayshawn Umanzor MD #2 [facility] [address] [place] [address] Consulting Physician Urology 03/17/23 Ra Shell MD [address] [address] Consulting Physician Colon and Rectal Surgery 06/08/23 documented as of this encounter
--- OUTSIDE RECORDS SUMMARY | 2024-12-20 13:02 | XMS_ITS | Encounter Summary ---
Author Organization [facility] Address [address] [facility] [place] [address] Phone Care Team Providers Care Freight Solicitor Name Role Phone Adam Paul MD Primary Care Provider [phone] Robby Salinas MD Unavailable Rayshawn Umanzor MD Unavailable [phone] Ra Shell MD Unavailable Reason for Visit * Reason Comments Medication Refill Encounter Details Date Type Department Care Team (Late st Contact Info) Description 11/18/2022 Refill [facility] - Family Medicine [facility] #2 [place] [phone] Adam Paul MD #[address] [address] Medication Refill Social History Tobacco Use Types [...] Telephone Encounter - Lisbeth Kapoor RN - 11/18/2022 11:54 AM CDT Medication warning Per nursing clinical judgement, provider to review and approve the medication(s) order(s) if appropriate. Requested Prescriptions Pending Prescriptions Disp Refills montelukast (SINGULAIR) 10 MG Tablet [Pharmacy Med Name: MONTELUKAST SOD 10 MG TABLET] 90 Tablet 1 Sig: TAKE 1 TABLET BY MOUTH EVERY DAY IN THE EVENING Leukotriene Inhibitors Protocol Passed - 11/18/2022 12:57 AM Passed - Visit with relevant provider in past 12 months or upcoming 90 days Recent Visits Date Type Provider Dept 08/03/22 Office Visit Adam Paul MD [facility] Showing recent visits within past 365 days and meeting all other requirements Future Appointments Date Type Provider Dept 12/22/22 Appointment Adam Paul MD [facility] Showing future appointments within next 90 days and meeting all other requirements documented in this encounter Plan of Treatment Upcoming Encounters Date Type Department Care Team (Late st Contact Info) Description 12/23/2024 11:15 AM CDT Office Visit [facility] - Family Medicine - [place] [address] [place] [address] Adam Paul MD #[address] [facility] [address] 01/31/2025 11:45 AM CDT Office Visit [facility] #[address] [place] [address] Rayshawn Umanzor MD #2 [facility] [address] [place] [address] documented as of this encounter Visit Diagnoses Not on filedocumented in this encounter Additional Health Concerns Assessment Noted Time PHQ-9 Depression Total Score: 0 11/26/19 20 9:00 AM CDT documented as of this encounter Care Teams Freight Solicitor Relationship Specialty Start Date End Date Adam Paul MD [address] [facility] [address] [place] [address] PCP - General Family Medicine 02/19/15 Robby Salinas MD [address] [facility] [facility] [facility] [address] [place] [address] Consulting Physician Orthopaedic Sports Medicine 04/18/16 Rayshawn Umanzor MD #2 [facility] [address] [place] [address] Consulting Physician Urology 03/17/23 Ra Shell MD [address] [facility] [address] [place] [address] Consulting Physician Colon and Rectal Surgery 06/08/23 documented as of this encounter
--- OUTSIDE RECORDS SUMMARY | 2024-12-20 13:02 | XMS_ITS | Encounter Summary ---
Author Organization [facility] Address [address] [facility] [place] [address] Phone Care Team Providers Care 3Rd Mate Name Role Phone Adam Paul MD Primary Care Provider [phone] Robby Salinas MD Unavailable Rayshawn Umanzor MD Unavailable [phone] Ra Shell MD Unavailable Reason for Visit * Reason Comments Medication Refill Encounter Details Date Type Department Care Team (Late st Contact Info) Description 12/13/[address] [facility] - Family Medicine [facility] #2 [place] [address] Adam Paul MD #[address] [address] Medication Refill Social History Tobacco Use Types [...] Telephone Encounter - Rachel Spencer RN - 12/14/2021 11:25 AM CDT PDMP filled xanax 11/12/2021 #90 for 30 day supply. Medication failed the protocol, provider to review and approve the medication order if appropriate. Requested Prescriptions Pending Prescriptions Disp Refills ALPRAZolam (XANAX) 0.5 MG Tablet [Pharmacy Med Name: ALPRAZOLAM 0.5 MG TABLET] 90 Tablet 0 Sig: TAKE 1 TABLET BY MOUTH THREE TIMES A DAY NEEDED FOR ANXIETY Not Delegated - Benzodiazepines Protocol Failed - 12/13/2021 12:45 PM Failed - This refill cannot be delegated Passed - Visit with relevant provider in past 12 months or upcoming 90 days Recent Visits Date Type Provider Dept 07/28/21 Office Visit Adam Paul MD [facility] 04/28/21 Office Visit Adam Paul MD [facility] 01/22/21 Office Visit Adam Paul MD [facility] Showing recent visits within past 365 days and meeting all other requirements Future Appointments No visits were found meeting these conditions. Showing future appointments within next 90 days and meeting all other requirements meclizine (ANTIVERT) 25 MG Tablet [Pharmacy Med Name: MECLIZINE 25 MG TABLET] 60 Tablet 1 Sig: TAKE 1 TABLET BY MOUTH EVERY 12 HOURS NEEDED FOR DIZZINESS OR NAUSEA. There is no refill protocol information for this order documented in this encounter Plan of Treatment Upcoming Encounters Date Type Department Care Team (Late st Contact Info) Description 12/23/2024 11:15 AM CDT [facility] - Family Medicine - [place] #2 [place] [address] Adam Paul MD #[address] [facility] [address] [place] [address] 01/31/2025 11:45 AM CDT [facility] [place] [address] Rayshawn Umanzor MD #[address] [facility] [address] [place] [address] documented as of this encounter Visit Diagnoses Diagnosis Anxiety Anxiety state, unspecified documented in this encounter Additional Health Concerns Assessment Noted Time PHQ-9 Depression Total Score: 0 11/26/19 20 9:00 AM CDT documented as of this encounter Care Teams 3Rd Mate Relationship Specialty Start Date End Date Adam Paul MD #[address] [facility] [address] [place] [address] PCP - General Family Medicine 02/19/15 Robby Salinas MD #[address] [facility] [address] [place] [address] Consulting Physician Orthopaedic Sports Medicine 04/18/16 Rayshawn Umanzor MD #[address] [facility] [address] [place] [address] Consulting Physician Urology 03/17/23 Ra Shell MD #2 [facility] [address] [place] [address] Consulting Physician Colon and Rectal Surgery 06/08/23 documented as of this encounter
--- OUTSIDE RECORDS SUMMARY | 2024-12-20 13:02 | XMS_ITS | Encounter Summary ---
Author Organization [facility] Address [address] [facility] [place] [address] Phone Care Team Providers Care Tyre Fitter Name Role Phone Adam Paul MD Primary Care Provider [phone] Robby Salinas MD Unavailable Rayshawn Umanzor MD Unavailable [phone] Ra Shell MD Unavailable Reason for Visit * Reason Comments Medication Refill Encounter Details Date Type Department Care Team (Late st Contact Info) Description 02/07/2020 Refill [facility] - Family Medicine [facility] #2 [place] [phone] Adam Paul MD #[address] [address] Medication Refill Social History Tobacco Use Types [...] encounter Miscellaneous Notes * Telephone Encounter - Nely Hammonds RN - 02/08/2020 12:33 PM CST Medication failed the protocol, provider to review and approve the medication order if appropriate. Requested Prescriptions Pending Prescriptions Disp Refills tiZANidine (ZANAFLEX) 4 MG Tablet [Pharmacy Med Name: TIZANIDINE HCL 4 MG TABLET] 60 Tab 0 Sig: TAKE 1 TABLET BY MOUTH TWICE A DAY Not Delegated - Analgesics: Muscle Relaxants Failed - 02/07/2020 2:53 PM Failed - This refill cannot be delegated Passed - Valid encounter within last 6 months Past Office Visits Recent Outpatient Visits 2 months ago Rectal pain [facility] - Adam Veras MD 9 months ago Anxiety [facility] - Adam Veras MD 1 year ago Chronic neck pain [facility] - Adam Veras MD 1 year ago Nausea [facility] - Adam Veras MD 1 year ago Chronic right shoulder pain [facility] 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, 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 PHYSICAL SCIENCE PROFESSOR - Recent and Past Visits Recent Visits [...] authorizing provider and meeting all other requirements OLETTERING MACHINE OPERATOR documented in this encounter Plan of Treatment Upcoming Encounters Date Type Department Care Team (Late st Contact Info) Description 12/23/2024 11:15 AM CDT Office [facility] - [place] #[address] [place] [address] Adam Paul MD #2 [facility] [address] [place] [address] 01/31/2025 11:45 AM CDT Office Visit [facility] #[address] [place] [address] Rayshawn Umanzor MD #2 [facility] [address] [place] [address] documented as of this encounter Visit Diagnoses Not on filedocumented in this encounter Additional Health Concerns Assessment Noted Time PHQ-9 Depression Total Score: 0 11/26/19 20 9:00 AM CDT documented as of this encounter Care Teams Tyre Fitter Relationship Specialty Start Date End Date Adam Paul MD #2 [facility] [address] [place] [address] PCP - General Family Medicine 02/19/15 Robby Salinas MD [facility] [address] [place] [address] Consulting Physician Orthopaedic Sports Medicine 04/18/16 Rayshawn Umanzor MD #2 [facility] [address] [place] [address] Consulting Physician Urology 03/17/23 Ra Shell MD [facility] [address] [place] [address] Consulting Physician Colon and Rectal Surgery 06/08/23 documented as of this encounter
--- OUTSIDE RECORDS SUMMARY | 2024-12-20 13:02 | XMS_ITS | Encounter Summary ---
Author Organization [facility] Address [address] [facility] [place] [address] Phone Care Team Providers Care Gun Perforator Name Role Phone Adam Paul MD Primary Care Provider [phone] Robby Salinas MD Unavailable Rayshawn Umanzor MD Unavailable [phone] Ra Shell MD Unavailable Reason for Visit * Reason Comments Medication Refill Encounter Details Date Type Department Care Team (Late st Contact Info) Description 08/02/2021 Refill [facility] - Family Medicine [facility] #2 [place] [phone] Adam Paul MD #[address] [address] Medication Refill Social History Tobacco Use Types [...] suspected to have Coronavirus/COVID-19? No / Unsure 07/28/2021 10:35 AM CDT documented as of this encounter Miscellaneous Notes * Telephone Encounter - Lisbeth Kapoor RN - 08/03/2021 1:27 PM CDT PDMP 06/26/21 Medication failed the protocol, provider to review and approve the medication order if appropriate. Requested Prescriptions Pending Prescriptions Disp Refills ALPRAZolam (XANAX) 0.5 MG Tablet [Pharmacy Med Name: ALPRAZOLAM 0.5 MG TABLET] 90 Tablet 0 Sig: TAKE 1 TABLET BY MOUTH THREE TIMES A DAY NEEDED FOR ANXIETY Not Delegated - Benzodiazepines Protocol Failed - 08/02/2021 3:11 PM Failed - This refill cannot be delegated Passed - Visit with relevant provider in past 12 months or upcoming 90 days Recent Visits Date Type Provider Dept 07/28/21 Office Visit Adam Paul MD [facility] 04/28/21 Office Visit Adam Paul MD [facility] 01/22/21 Office Visit Adam Paul MD [facility] 10/22/20 Office Visit Adam Paul MD [facility] [...] 12/23/2024 11:15 AM CDT Office Visit [facility] - Family Medicine - [place] #2 [place] [phone] Adam Paul MD #[address] [facility] 205 [place] [address] 01/31/2025 11:45 AM CDT Office Visit [facility] #[address] [place] [address] Rayshawn Umanzor MD #[address] [facility] [address] [place] [address] documented as of this encounter Visit Diagnoses Diagnosis Anxiety Anxiety state, unspecified documented in this encounter Additional Health Concerns Assessment Noted Time PHQ-9 Depression Total Score: 0 11/26/19 20 9:00 AM CDT documented as of this encounter Care Teams Gun Perforator Relationship Specialty Start Date End Date Adam Paul MD #[address] [facility] [address] [place] [address] PCP - General Family Medicine 02/19/15 Robby Salinas MD #[address] [facility] [facility] [address] [place] [address] Consulting Physician Orthopaedic Sports Medicine 04/18/16 Rayshawn Umanzor MD #[address] [facility] [address] [place] [address] Consulting Physician Urology 03/17/23 Ra Shell MD #[address] [facility] [facility] [address] [place] [address] Consulting Physician Colon and Rectal Surgery 06/08/23 documented as of this encounter
--- OUTSIDE RECORDS SUMMARY | 2024-12-20 13:02 | XMS_ITS | Encounter Summary ---
Author Organization [facility] Address [address] [facility] [place] [address] Phone Care Team Providers Care Grader Green Meat Name Role Phone Adam Paul MD Primary Care Provider [phone] Robby Salinas MD Unavailable Rayshawn Umanzor MD Unavailable [phone] Ra Shell MD Unavailable Reason for Visit * Reason Onset Date Comments Medication Refill 03/13/2020 proair Encounter Details Date Type Department Care Team (Late st Contact Info) Description 03/13/2020 Refill [facility] - Family [facility] #2 [place] [phone] Adam Paul MD #[address] [address] Medication Refill (proair ) Social History Tobacco Use Types Packs/Day Years [...] COVID-19? No / Unsure 03/09/2020 9:32 AM COMMODITIES TRADER documented as of this encounter Miscellaneous Notes * Telephone Encounter - Gely Oliva RN - 03/13/2020 12:33 PM CST Duplicate. Medication was refilled 03/09/20 ODITIES TRADER * Telephone Encounter - Brittany Calloway RN - 03/13/2020 11:20 AM CST Pro air pended per note below. ODITIES TRADER * Telephone Encounter - Soniya Johns - 03/13/2020 10:49 AM CST Patient call states insurance not covering the albuterol and pharmacy said is needing an prescription For the brand Proair ? Please call pharmacy to verify that this is what pharmacy is needing Need prescription Changed to brand ODITIES TRADER documented in this encounter Plan of Treatment Upcoming Encounters Date Type Department Care Team (Late st Contact Info) Description 12/23/2024 11:15 AM CDT Office Visit [facility] #[address] [place] [address] Adam Paul MD #[address] [address] 01/31/2025 11:45 AM CDT [facility] [place] [address] Rayshawn Umanzor MD #2 [facility] [address] [place] [address] documented as of this encounter Visit Diagnoses Not on filedocumented in this encounter Additional Health Concerns Assessment Noted Time PHQ-9 Depression Total Score: 0 11/26/19 20 9:00 AM CDT documented as of this encounter Care Teams Grader Green Meat Relationship Specialty Start Date End Date Adam Paul MD #2 [facility] [address] [place] [address] PCP - General Family Medicine 02/19/15 Robby Salinas MD #2 [facility] [address] [place] [address] Consulting Physician Orthopaedic Sports Medicine 04/18/16 Rayshawn Umanzor MD #2 [facility] [address] [place] [address] Consulting Physician Urology 03/17/23 Ra Shell MD #2 [facility] [address] [place] [address] Consulting Physician Colon and Rectal Surgery 06/08/23 documented as of this encounter
--- OUTSIDE RECORDS SUMMARY | 2024-12-20 13:02 | XMS_ITS | Encounter Summary ---
Author Organization [facility] Address [address] [facility] [place] [address] Phone Care Team Providers Care Armature Winder Helper Repair Name Role Phone Adam Paul MD Primary Care Provider [phone] Robby Salinas MD Unavailable Rayshawn Umanzor MD Unavailable [phone] Ra Shell MD Unavailable Reason for Visit * Reason Comments Medication Refill Encounter Details Date Type Department Care Team (Late st Contact Info) Description 07/24/2020 Refill [facility] - Family Medicine [facility] #2 [place] [phone] Adam Paul MD #[address] [address] Medication Refill Social History Tobacco Use Types [...] have Coronavirus / COVID-19? No / Unsure 07/27/2020 1:17 PM CDT documented as of this encounter Miscellaneous Notes * Telephone Encounter - Lisbeth Kapoor RN - 07/27/2020 8:42 AM CDT [place] 06/24/20 Medication failed the protocol, provider to review and approve the medication order if appropriate. Requested Prescriptions Pending Prescriptions Disp Refills Acetaminophen-Codeine 300-60 MG Tablet [Pharmacy Med Name: ACETAMINOPHEN-COD #4 TABLET] 60 Tablet 0 Sig: TAKE 1 TABLET BY MOUTH 2 TIMES DAILY NEEDED FOR MODERATE OR MORE SEVERE PAIN. healthfinch Not Delegated - Analgesics: Opioid Agonist Combinations Failed - 07/27/2020 8:28 AM Failed - This refill cannot be delegated Passed - Valid encounter within last 6 months Past Office Visits Recent Outpatient Visits 4 months ago Chronic joint pain [facility] - Adam Veras MD 8 months ago Rectal pain [facility] - Adam Veras MD 1 year ago Anxiety [facility] - Adam Veras MD 2 years ago Chronic neck pain [facility] - Adam Veras MD 2 years ago Nausea [facility] - Family Medicine - Adam Veras MD Upcoming Appointments Future Appointments Today Rick Mcintosh MD [facility], [facility] MACHINE TENDER - Recent and Past Visits Recent Visits Date Type Provider Dept 03/09/20 Office Visit Adam Paul MD [facility] 11/26/19 Office Visit Adam Paul MD [facility] [place] Showing recent visits within past 460 [...] [facility] - [place] #[address] [facility] [address] Adam Paul MD [facility]2 [facility] [address] [place] [address] 01/31/2025 11:45 AM CDT Office Visit [facility] #2 [address] [facility] [place] [address] Rayshawn Umanzor MD #2 [facility] [address] [place] [address] documented as of this encounter Visit Diagnoses Diagnosis Chronic pain syndrome documented in this encounter Additional Health Concerns Assessment Noted Time PHQ-9 Depression Total Score: 0 11/26/19 20 9:00 AM CDT documented as of this encounter Care Teams Armature Winder Helper Repair Relationship Specialty Start Date End Date Adam Paul MD [address] [place] [address] PCP - General Family Medicine 02/19/15 Robby Salinas MD #2 [facility] [address] [place] [address] Consulting Physician Orthopaedic Sports Medicine 04/18/16 Rayshawn Umanzor MD #2 [facility] [address] [place] [address] Consulting Physician Urology 03/17/23 Ra Shell MD #2 [place] [address] Consulting Physician Colon and Rectal Surgery 06/08/23 documented as of this encounter
--- OUTSIDE RECORDS SUMMARY | 2024-12-20 13:02 | XMS_ITS | Encounter Summary ---
Author Organization [facility] Address [address] [facility] [place] [address] Phone Care Team Providers Care Hat Sprayer Name Role Phone Adam Paul MD Primary Care Provider [phone] Robby Salinas MD Unavailable Rayshawn Umanzor MD Unavailable [phone] Ra Shell MD Unavailable Reason for Visit * Reason Comments Medication Refill Encounter Details Date Type Department Care Team (Late st Contact Info) Description 07/04/2022 Refill [facility] - Family Medicine [facility] #2 [place] [phone] Adam Paul MD #[address] [address] Medication Refill Social History Tobacco Use Types [...] Telephone Encounter - Lisbeth Kapoor RN - 07/04/2022 3:48 PM CDT PDMP 05/26/22 Medication failed the protocol, provider to review and approve the medication order if appropriate. Requested Prescriptions Pending Prescriptions Disp Refills ALPRAZolam (XANAX) 0.5 MG Tablet [Pharmacy Med Name: ALPRAZOLAM 0.5 MG TABLET] 90 Tablet 0 Sig: TAKE 1 TABLET BY MOUTH THREE TIMES A DAY NEEDED FOR ANXIETY Not Delegated - Benzodiazepines Protocol Failed - 07/04/2022 1:10 PM Failed - This refill cannot be delegated Passed - Visit with relevant provider in past 12 months or upcoming 90 days Recent Visits Date Type Provider Dept 07/28/21 Office Visit Adam Paul MD [facility] Showing recent visits within past 365 days and meeting all other requirements Future Appointments Date Type Provider Dept 08/03/22 Appointment Adam Paul MD [facility] Showing future appointments within next 90 days and meeting all other requirements documented in this encounter Plan of Treatment Upcoming Encounters Date Type Department Care Team (Late st Contact Info) Description 12/23/2024 11:15 AM CDT Office Visit [facility] Medical Group - Family Medicine - [place] #2 [place] [address] Adam Paul MD #[address] [address] 01/31/2025 11:45 AM CDT Office Visit [facility] #2 [facility] [place] [place] [address] Rayshawn Umanzor MD [facility] [address] [place] [address] documented as of this encounter Visit Diagnoses Diagnosis Anxiety Anxiety state, unspecified documented in this encounter Additional Health Concerns Assessment Noted Time PHQ-9 Depression Total Score: 0 11/26/19 20 9:00 AM CDT documented as of this encounter Care Teams Hat Sprayer Relationship Specialty Start Date End Date Adam Paul MD #2 [facility] [address] [place] [address] PCP - General Family Medicine 02/19/15 Robby Salinas MD #2 [facility] [address] [place] [address] Consulting Physician Orthopaedic Sports Medicine 04/18/16 Rayshawn Umanzor MD #2 [facility] [address] [place] [address] Consulting Physician Urology 03/17/23 Ra Shell MD #[address] [address] Consulting Physician Colon and Rectal Surgery 06/08/23 documented as of this encounter
--- OUTSIDE RECORDS SUMMARY | 2024-12-20 13:02 | XMS_ITS | Encounter Summary ---
Author Organization [facility] Address [address] [facility] [place] [address] Phone Care Team Providers Care Algebraist Name Role Phone Adam Paul MD Primary Care Provider [phone] Robby Salinas MD Unavailable Rayshawn Umanzor MD Unavailable [phone] Ra Shell MD Unavailable Reason for Visit * Reason Comments Medication Refill Encounter Details Date Type Department Care Team (Late st Contact Info) Description 12/04/2020 Refill [facility] - Family Medicine [facility] #2 [place] [address] Adam Paul MD #[address] [address] Medication Refill Social History Tobacco Use Types Packs/Day Years Used Date Smoking Tobacco: Never Smokeless Tobacco: Current Chew Comments:one can a day, sinc e 1995 Alcohol Use Standard Drinks/Week Comments Yes 0 [...] have Coronavirus / COVID-19? No / Unsure 12/02/2020 9:47 AM CDT documented as of this encounter Miscellaneous Notes * Telephone Encounter - Lisbeth Kapoor RN - 12/04/2020 4:17 PM CDT PRN medication requires review from provider Per nursing clinical judgement, provider to review and approve the medication(s) order(s) if appropriate. Requested Prescriptions Pending Prescriptions Disp Refills albuterol 108 (90 Base) MCG/ACT Aerosol Solution [Pharmacy Med Name: ALBUTEROL HFA (PROVENTIL) INH]13.4 g 2 Sig: take 1-2 Puffs by inhalation every 6 hours as needed for Wheezing. Short Acting Inhaled Beta-Agonists Protocol Passed - 12/04/2020 9:11 AM Passed - Visit with relevant provider in past 12 months or upcoming 90 days Recent Visits Date Type Provider Dept 10/22/20 Office Visit Adam Paul MD [facility] 03/09/20 Office Visit Adam Paul MD [facility] Showing recent visits within past 365 days and meeting all other requirements Future Appointments Date Type Provider Dept 01/22/21 Appointment Adam Paul MD [facility] Showing future appointments within next 90 days and meeting all other requirements documented in this encounter Plan of Treatment Upcoming Encounters Date Type Department Care Team (Late st Contact Info) Description 12/23/2024 11:15 AM CDT [facility] Visit [facility] [place] [facility] [place] [address] Adam Paul MD [address] [place] [address] 01/31/2025 11:45 AM CDT [facility] [place] [address] Rayshawn Umanzor MD #2 [facility] [address] [place] [address] documented as of this encounter Visit Diagnoses Not on filedocumented in this encounter Additional Health Concerns Assessment Noted Time PHQ-9 Depression Total Score: 0 11/26/19 20 9:00 AM CDT documented as of this encounter Care Teams Algebraist Relationship Specialty Start Date End Date Adam Paul MD #2 [facility] [facility] [address] [place] [address] PCP - General Family Medicine 02/19/15 Robby Salinas MD #2 [facility] [address] [place] [address] Consulting Physician Orthopaedic Sports Medicine 04/18/16 Rayshawn Umanzor MD [address] [facility] [address] [place] [address] Consulting Physician Urology 03/17/23 Ra Shell MD #2 [facility] [facility] [address] [place] [address] Consulting Physician Colon and Rectal Surgery 06/08/23 documented as of this encounter
--- OUTSIDE RECORDS SUMMARY | 2024-12-20 13:02 | XMS_ITS | Encounter Summary ---
Author Organization [facility] Address [address] [facility] [place] [address] Phone Care Team Providers Care Typo Machine Operator Name Role Phone Adam Paul MD Primary Care Provider [phone] Robby Salinas MD Unavailable Rayshawn Umanzor MD Unavailable [phone] Ra Shell MD Unavailable Reason for Visit * Reason Comments Medication Refill Encounter Details Date Type Department Care Team (Late st Contact Info) Description 06/07/2020 Refill [facility] - Family Medicine [facility] #2 [place] [address] Adam Paul MD #[address] [address] Medication Refill Social History Tobacco Use Types [...] COVID-19? No / Unsure 05/27/2020 1:06 PM AIR CONDITIONING ENGINEER documented as of this encounter Miscellaneous Notes * Telephone Encounter - Lisbeth Kapoor RN - 06/08/2020 12:05 PM CST Patient can have lab work done at tomorrow's appointment. CONDITIONING ENGINEER * Telephone Encounter - Lisbeth Kapoor RN - 06/08/2020 12:04 PM CST OV 06/09/20 CONDITIONING ENGINEER documented in this encounter Plan of Treatment Upcoming Encounters Date Type Department Care Team (Late st Contact Info) Description 12/23/2024 11:15 AM CDT Office Visit [facility] Medicine [facility] #2 [place] [address] Adam Paul MD #2 [facility] [address] [place] [address] 01/31/2025 11:45 AM CDT Office Visit [facility] #2 [place] [address] Rayshawn Umanzor MD #2 [facility] [address] [place] [address] documented as of this encounter Visit Diagnoses Not on filedocumented in this encounter Additional Health Concerns Assessment Noted Time PHQ-9 Depression Total Score: 0 11/26/19 20 9:00 AM CDT documented as of this encounter Care Teams Typo Machine Operator Relationship Specialty Start Date End Date Adam Paul MD [facility] [address] [place] [address] PCP - General Family Medicine 02/19/15 Robby Salinas MD #2 [facility] [address] [place] [address] Consulting Physician Orthopaedic Sports Medicine 04/18/16 Rayshawn Umanzor MD #2 [facility] [address] [place] [address] Consulting Physician Urology 03/17/23 Ra Shell MD [facility] [address] [place] [address] Consulting Physician Colon and Rectal Surgery 06/08/23 documented as of this encounter
--- OUTSIDE RECORDS SUMMARY | 2024-12-20 13:02 | XMS_ITS | Encounter Summary ---
Author Organization [facility] Address [address] [facility] [place] [address] Phone Care Team Providers Care Surveyor Mine Name Role Phone Adam Paul MD Primary Care Provider [phone] Robby Salinas MD Unavailable Rayshawn Umanzor MD Unavailable [phone] Ra Shell MD Unavailable Reason for Visit * Reason Comments Medication Refill Encounter Details Date Type Department Care Team (Late st Contact Info) Description 06/24/2020 Refill [facility] Medical Group - Family Medicine [facility] #2 [place] [address] Adam Paul MD #[address] [address] Medication Refill Social History Tobacco Use Types [...] COVID-19? 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 Asking for dx code. Last OV 03/09/20, F/U None, Last UDS 02/19/20 Complaint, [place] per [place] Review 05/27/20 Roseanna JULIO Requested Prescriptions Pending Prescriptions Disp Refills Acetaminophen-Codeine 300-60 MG Tablet [Pharmacy Med Name: ACETAMINOPHEN-COD #4 TABLET] 60 Tablet 0 Sig: TAKE 1 TAB BY MOUTH 2 TIMES DAILY NEEDED FOR MODERATE OR MORE SEVERE PAIN. Not Delegated - Analgesics: Opioid Agonist Combinations Failed - 06/24/2020 4:33 PM Failed - This refill cannot be delegated Passed - Valid encounter within last 6 months Past Office Visits Recent Outpatient Visits 3 months ago Chronic joint pain [facility] - Adam Veras MD 7 months ago Rectal pain [facility] Family [facility] - Adam Veras MD 1 year ago Anxiety [facility] Family Medicine Adam Garza MD 2 years ago Chronic neck pain [facility] Adam Veras MD 2 years ago Nausea [facility] Family 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 - Recent and Past Visits Recent Visits Date Type Provider Dept 03/09/20 Office Visit Adam Paul MD [facility] 11/26/19 Office Visit [facility] MD [facility] 04/18/19 Office Visit Adam Paul MD [facility] Showing recent visits within past 460 days [...] Description 12/23/2024 11:15 AM CDT Office Visit [facility] Medical Group - Family Medicine - [place] #2 [place] [place] [address] Adam Paul MD #2 [facility] [address] [place] [address] 01/31/2025 11:45 AM CDT Office Visit [facility] #2 [place] [address] Rayshawn Umanzor MD #2 [facility] [address] [place] [address] documented as of this encounter Visit Diagnoses Diagnosis Chronic pain syndrome documented in this encounter Additional Health Concerns Assessment Noted Time PHQ-9 Depression Total Score: 0 11/26/19 9:00 AM CDT documented as of this encounter Care Teams Surveyor Mine Relationship Specialty Start Date End Date Adam Paul MD #[address] [place] [address] PCP - General Family Medicine 02/19/15 Robby Salinas MD #2 [facility] [address] [place] [address] Consulting Physician Orthopaedic Sports Medicine 04/18/16 Rayshawn Umanzor MD #2 [facility] [address] [place] [address] Consulting Physician Urology 03/17/23 Ra Shell MD #2 [facility] [address] [place] [address] Consulting Physician Colon and Rectal Surgery 06/08/23 documented as of this encounter
--- OUTSIDE RECORDS SUMMARY | 2024-12-20 13:02 | XMS_ITS | Encounter Summary ---
Author Organization [facility] Address [address] [facility] [place] [address] Phone Care Team Providers Care Concaving Machine Operator Name Role Phone Adam Paul MD Primary Care Provider [phone] Robby Salinas MD Unavailable Rayshawn Umanzor MD Unavailable [phone] Ra Shell MD Unavailable Reason for Visit * Reason Comments Medication Refill Encounter Details Date Type Department Care Team (Late st Contact Info) Description 04/16/2020 Refill [facility] - Family Medicine [facility] #2 [place] [address] Adam Paul MD #[address] [address] Medication Refill Social History Tobacco Use Types [...] Telephone Encounter - Lisbeth Kapoor RN - 04/16/2020 9:37 AM CST Please address medication warning Per nursing clinical judgement, provider to review and approve the medication(s) order(s) if appropriate. Requested Prescriptions Pending Prescriptions Disp Refills montelukast (SINGULAIR) 10 MG Tablet [Pharmacy Med Name: MONTELUKAST SOD 10 MG TABLET] 90 Tab 3 Sig: TAKE ONE TABLET BY MOUTH EVERY EVENING Pulmonology: Leukotriene Inhibitors Passed - 04/16/2020 12:00 AM Passed - Valid encounter within last 12 months Past Office Visits Recent Outpatient Visits 1 month [facility] 4 months ago Rectal pain [facility] Adam Veras MD 12 months ago [facility] 1 year ago Chronic neck pain [facility] Adam Veras MD 1 year [facility] Veras MD Upcoming Appointments Future Appointments In 1 month Adam Paul MD [facility] AOC DIRECTOR INTELLIGENCE OFFICER - Recent and Past Visits Recent Visits [...] authorizing provider and meeting all other requirements NG RUNNER documented in this encounter Plan of Treatment Upcoming Encounters Date Type Department Care Team (Late st Contact Info) Description 12/23/2024 11:15 AM CDT [facility] - [place] #[address] [place] [address] Adam Paul MD #2 [facility] [address] [place] [address] 01/31/2025 11:45 AM CDT Office Visit [facility] #[address] [place] [address] Rayshawn Umanzor MD #2 [facility] [address] [place] [address] documented as of this encounter Visit Diagnoses Not on filedocumented in this encounter Additional Health Concerns Assessment Noted Time PHQ-9 Depression Total Score: 0 11/26/19 20 9:00 AM CDT documented as of this encounter Care Teams Concaving Machine Operator Relationship Specialty Start Date End Date Adam Paul MD #2 [facility] [address] [place] [address] PCP - General Family Medicine 02/19/15 Robby Salinas MD #2 [facility] [address] [place] [address] Consulting Physician Orthopaedic Sports Medicine 04/18/16 Rayshawn Umanzor MD #2 [facility] [address] [place] [address] Consulting Physician Urology 03/17/23 Ra Shell MD #[address] [address] Consulting Physician Colon and Rectal Surgery 06/08/23 documented as of this encounter
--- OUTSIDE RECORDS SUMMARY | 2024-12-20 13:02 | XMS_ITS | Encounter Summary ---
Author Organization [facility] Address [address] [facility] [place] [address] Phone Care Team Providers Care Belt Conveyor Drier Name Role Phone Adam Paul MD Primary Care Provider [phone] Robby Salinas MD Unavailable Rayshawn Umanzor MD Unavailable [phone] Ra Shell MD Unavailable Reason for Visit * Reason Comments Medication Refill Encounter Details Date Type Department Care Team (Late st Contact Info) Description 05/18/2022 Refill [facility] Medical Group - Family Medicine [facility] #2 [place] [phone] Adam Paul MD #[address] [address] Medication Refill Social History Tobacco Use Types [...] Miscellaneous Notes * Telephone Encounter - Lisbeth dutton Estrada RN - 05/19/2022 7:59 AM CST PDMP Alprazolam 04/23/22 Medication failed the protocol, provider to review and approve the medication order if appropriate. Requested Prescriptions Pending Prescriptions Disp Refills meclizine (ANTIVERT) 25 MG Tablet [Pharmacy Med Name: MECLIZINE 25 MG TABLET] 60 Tablet 1 Sig: TAKE 1 TABLET BY MOUTH EVERY 12 HOURS NEEDED FOR DIZZINESS OR NAUSEA. Not Delegated - Off Protocol Failed - 05/18/2022 2:12 PM Failed - This refill cannot be [...] Hmg CoA Reductase Inhibitors Protocol Passed - 05/18/2022 2:14 PM Passed - Visit with relevant provider [...] months LDL Date Value Ref Range Status 06/09/2021 157 (H) 5 - 130 mg/dL Final HDL CHOLESTEROL Date Value Ref Range Status 06/09/2021 31.2 (L) >40 mg/dL Final CHOLESTEROL Date Value Ref Range Status 06/09/2021 250 (H) <=200 mg/dL Final TRIGLYCERIDES Date Value Ref Range Status 06/09/2021 311 (H) <150 mg/dL Final VLDL Date Value Ref Range Status 06/09/2021 62 (H) 5 - 55 mg/dL Final CHOL/HDL RATIO Date Value Ref Range Status 06/09/2021 8.0 (H) 0.0 - 4.4 Final NON-HDL CHOLESTEROL Date Value Ref Range Status 06/09/2021 218.8 (H) <130 mg/dL Final montelukast (SINGULAIR) 10 MG Tablet [Pharmacy Med Name: MONTELUKAST SOD 10 MG TABLET] 90 Tablet 1 Sig: TAKE 1 TABLET BY MOUTH EVERY DAY IN THE EVENING Leukotriene Inhibitors Protocol Passed - 05/18/2022 2:14 PM Passed - Visit with relevant provider in past 12 months or upcoming 90 days Recent Visits Date Type Provider Dept 07/28/21 Office Visit Adam Paul MD [facility] Showing recent visits within past 365 days [...] Not Delegated - Benzodiazepines Protocol Failed - 05/18/2022 2:14 PM Failed - This refill cannot be delegated Passed - Visit with relevant provider in past 12 months or upcoming 90 days Recent Visits Date Type Provider Dept 07/28/21 Office Visit Adam Paul MD [facility] Showing recent visits within past 365 days and meeting all other requirements Future Appointments No visits were found meeting these conditions. Showing future appointments within next 90 days and meeting all other requirements TIME documented in this encounter Plan of Treatment Upcoming Encounters Date Type Department Care Team (Late st Contact Info) Description 12/23/2024 11:15 AM CDT Office Visit [facility] Medical Group - Family Medicine - [place] [address] [place] [address] Adam Paul MD [address] [address] 01/31/2025 11:45 AM CDT [facility] [address] [place] [address] Rayshawn Umanzor MD [address] [facility] [address] [place] [address] documented as of this encounter Visit Diagnoses Diagnosis Anxiety Anxiety state, unspecified documented in this encounter Additional Health Concerns Assessment Noted Time PHQ-9 Depression Total Score: 0 11/26/19 20 9:00 AM CDT documented as of this encounter Care Teams Belt Conveyor Drier Relationship Specialty Start Date End Date Adam Paul MD [address] [facility] [address] [place] [address] PCP - General Family Medicine 02/19/15 Robby Salinas MD #[address] [facility] [address] [place] [address] Consulting Physician Orthopaedic Sports Medicine 04/18/16 Rayshawn Umanzor MD [address] [facility] [address] [place] [address] Consulting Physician Urology 03/17/23 Ra Shell MD #[address] [facility] [facility] [address] [place] [address] Consulting Physician Colon and Rectal Surgery 06/08/23 documented as of this encounter
--- OUTSIDE RECORDS SUMMARY | 2024-12-20 13:02 | XMS_ITS | Encounter Summary ---
Author Organization [facility] Address [address] [facility] [place] [address] Phone Care Team Providers Care Core Blower Operator Name Role Phone Adam Paul MD Primary Care Provider [phone] Robby Salinas MD Unavailable Rayshawn Umanzor MD Unavailable [phone] Ra Shell MD Unavailable Reason for Visit * Reason Comments Medication Refill Encounter Details Date Type Department Care Team (Late st Contact Info) Description 12/12/2022 Refill [facility] Medical Group - Family Medicine [facility] #2 [place] [phone] Adam Paul MD #[address] [address] Medication Refill Social History Tobacco Use Types [...] Telephone Encounter - Lisbeth Kapoor RN - 12/12/2022 10:57 AM CDT Medication failed the protocol, provider to review and approve the medication order if appropriate. Requested Prescriptions Pending Prescriptions Disp Refills rosuvastatin (CRESTOR) 10 MG Tablet [Pharmacy Med Name: ROSUVASTATIN CALCIUM 10 MG TAB] 90 Tablet 1 Sig: TAKE 1 TABLET BY MOUTH EVERY DAY Hmg CoA Reductase Inhibitors Protocol Failed - 12/12/2022 1:05 AM Failed - Lipid panel in past 12 months [...] Status 06/09/2021 218.8 (H) <130 mg/dL Final Failed - CMP in past 12 months SODIUM Date Value Ref Range Status 06/09/2021 140 136 - 144 mmol/L Final POTASSIUM Date Value Ref Range Status 06/09/2021 4.0 3.5 - 5.1 mmol/L Final CHLORIDE Date Value Ref Range Status 06/09/2021 100 100 - 110 mmol/L Final CO2, VENOUS Date Value Ref Range Status 06/09/2021 27 22 - 32 mmol/L Final ANION GAP Date Value Ref Range Status 06/09/2021 17.0 8.0 - 20.0 mmol/L Final GLUCOSE Date Value Ref Range Status 06/09/2021 100 (H) 70 - 99 mg/dL Final BUN Date Value Ref Range Status 06/09/2021 10 6 - 20 mg/dL Final CREATININE, BLOOD Date Value Ref Range Status 06/09/2021 0.59 (L) 0.80 - 1.30 mg/dL Final BUN/CREATININE RATIO Date Value Ref Range Status 06/09/2021 17 12 - 20 ratio Final TOTAL PROTEIN Date Value Ref Range Status 07/26/2021 7.6 6.0 - 8.3 g/dL Final ALBUMIN Date Value Ref Range Status 07/26/2021 4.9 3.5 - 5.2 g/dL Final Comment: The colormetric methods used for the determination of Albumin may lead to falsely elevated test results in patients suffering from renal failure or insufficiency due to interference with other proteins. A/G RATIO Date Value Ref Range Status 01/26/2021 1.6 1.0 - 2.0 Final CALCIUM Date Value Ref Range Status 06/09/2021 9.9 8.9 - 10.3 mg/dL Final T BILI Date Value Ref Range Status 07/26/2021 0.5 <=1.2 mg/dL Final SGOT (AST) Date Value Ref Range Status 07/26/2021 69 (H) <=40 U/L Final SGPT (ALT) Date Value Ref Range Status 07/26/2021 94 (H) <=41 U/L Final ALKALINE PHOSPHATASE Date Value Ref Range Status 07/26/2021 97 40 - 130 U/L Final GFR, EST. NONAFRICAN Date Value Ref Range Status 06/09/2021 >60 >=60 Final GFR, EST. Date Value Ref Range Status 06/09/2021 >60 >=60 Final Comment: Creatinine Clearance is the preferred criteria for selecting drug dose adjustments in renally impaired patients. The GFR is provided as additional pertinent clinical information. GFR is reported in mL/min/1.73 sq m. IS THE PATIENT REQUIRED TO BE FASTING? Date Value Ref Range Status 01/26/2021 No Final Passed - Visit with relevant provider in past 12 months or upcoming 90 days Recent Visits Date Type Provider Dept 08/03/22 Office Visit Adam Paul MD [facility] [place] Showing recent visits within past 365 days and meeting all other requirements Future Appointments Date Type Provider Dept 12/22/22 Appointment Adam Paul MD [facility] Showing future appointments within next 90 days and meeting all other requirements documented in this encounter Plan of Treatment Upcoming Encounters Date Type Department Care Team (Late st Contact Info) Description 12/23/2024 11:15 AM CDT Office Visit [facility] Medical Group - Family Medicine - [place] [address] [place] [address] Adam Paul MD [facility] [address] [place] [address] 01/31/2025 11:45 AM CDT Office Visit [facility] [address] [place] [address] Rayshawn Umanzor MD [address] [facility] [facility] [address] [place] [address] documented as of this encounter Visit Diagnoses Not on filedocumented in this encounter Additional Health Concerns Assessment Noted Time PHQ-9 Depression Total Score: 0 11/26/19 20 9:00 AM CDT documented as of this encounter Care Teams Core Blower Operator Relationship Specialty Start Date End Date Adam Paul MD [facility] [address] [place] [address] PCP - General Family Medicine 02/19/15 Robby Salinas MD [facility] [address] [place] [address] Consulting Physician Orthopaedic Sports Medicine 04/18/16 Rayshawn Umanzor MD #[address] [facility] [facility] [address] [place] [address] Consulting Physician Urology 03/17/23 Ra Shell MD #[address] [facility] [facility] [address] [place] [address] Consulting Physician Colon and Rectal Surgery 06/08/23 documented as of this encounter
--- OUTSIDE RECORDS SUMMARY | 2024-12-20 13:02 | XMS_ITS | Encounter Summary ---
Author Organization [facility] Address [address] [facility] [place] [address] Phone Care Team Providers Care Data Center Architect Name Role Phone Adam Paul MD Primary Care Provider [phone] Robby Salinas MD Unavailable Rayshawn Umanzor MD Unavailable [phone] Ra Shell MD Unavailable Reason for Visit * Reason Comments Medication Refill Encounter Details Date Type Department Care Team (Late st Contact Info) Description 11/09/2021 Refill [facility] Medical Group - Family Medicine [facility] #2 [place] [phone] Adam Paul MD #[address] [address] Medication Refill Social History Tobacco Use Types [...] encounter Miscellaneous Notes * Telephone Encounter - Antwon Lisbeth L, RN - 11/10/2021 10:49 AM CDT PDMP Alprazolam 10/07/21 Medication failed the protocol, provider to review and approve the medication order if appropriate. Requested Prescriptions Pending Prescriptions Disp Refills gabapentin (NEURONTIN) 400 MG Capsule [Pharmacy Med Name: GABAPENTIN 400 MG CAPSULE] 90 Capsule 5 Sig: TAKE 1 CAPSULE BY MOUTH THREE TIMES A DAY Not Delegated - Anticonvulsants Excluding Benzodiazepines Protocol Failed - 11/09/2021 12:16 PM Failed - This refill cannot be [...] Not Delegated - Benzodiazepines Protocol Failed - 11/09/2021 12:16 PM Failed - This refill cannot be [...] [facility] - [place] [address] [facility] [place] [address] Adam Paul MD [address] [place] [place] [address] [place] [address] 01/31/2025 11:45 AM CDT Office Visit [facility] [address] [address] Rayshawn Umanzor MD [address]2 [facility] [address] [place] [address] documented as of this encounter Visit Diagnoses Diagnosis Anxiety Anxiety state, unspecified documented in this encounter Additional Health Concerns Assessment Noted Time PHQ-9 Depression Total Score: 0 11/26/19 20 9:00 AM CDT documented as of this encounter Care Teams Data Center Architect Relationship Specialty Start Date End Date Adam Paul MD [facility] [address] [place] [address] PCP - General Family Medicine 02/19/15 Robby Salinas MD [address] [place] [place] [address] [place] [address] Consulting Physician Orthopaedic Sports Medicine 04/18/16 Rayshawn Umanzor MD #[address] [facility] [facility] [address] [place] [address] Consulting Physician Urology 03/17/23 Ra Shell MD #2 [place] [address] Consulting Physician Colon and Rectal Surgery 06/08/23 documented as of this encounter
--- OUTSIDE RECORDS SUMMARY | 2024-12-20 13:02 | XMS_ITS | Encounter Summary ---
Author Organization [facility] Address [address] [facility] [place] [address] Phone Care Team Providers Care Multimedia Services Manager Name Role Phone Adam Paul MD Primary Care Provider [phone] Robby Salinas MD Unavailable Rayshawn Umanzor MD Unavailable [phone] Ra Shell MD Unavailable Reason for Visit * Reason Comments Medication Refill Encounter Details Date Type Department Care Team (Late st Contact Info) Description 06/26/2023 Refill [facility] Medical Group - Family Medicine [facility] #2 [place] [address] Adam Paul MD #[address] [address] Medication Refill Social History Tobacco Use Types Packs/Day Years Used Date Smoking Tobacco: Never Smokeless Tobacco: Current Chew Comments:one can a day, sinc e 1995 Alcohol Use Standard Drinks/Week Comments Not Currently 0 (1 standard drink = 0.6 oz pur e alcohol) rare [facility] Utilities Answer Date Recorded In the [...] or relatives? Twice a week 05/04/2023 Attends Church Services Not on file 05/04 Do you belong to any clubs o r organizations such as pentecostalism groups, unions, fraternal or athletic groups, or [...] Total Score - Questions 1-9 0 11/02 [facility] - Occupational [...] place to sleep or slept in a custodial (including now)? No 05/04/2023 Education Answer Date [...] Telephone Encounter - Lisbeth Kapoor RN - 06/26/2023 4:05 PM CDT Medication failed the protocol, provider to review and approve the medication order if appropriate. Requested Prescriptions Pending Prescriptions Disp Refills gabapentin (NEURONTIN) 400 MG Capsule [Pharmacy Med Name: GABAPENTIN 400 MG CAPSULE] 90 Capsule 2 Sig: TAKE 1 CAPSULE BY MOUTH THREE TIMES A DAY Not Delegated - Anticonvulsants Excluding Benzodiazepines Protocol Failed - 06/26/2023 12:59 PM Failed - This refill cannot be delegated Passed - Visit with relevant provider in past 12 months or upcoming 90 days Recent Visits Date Type Provider Dept 05/04/23 Office Visit Adam Paul MD [facility] 02/02/23 Telemedicine Adam Paul MD [facility] 12/26/22 Office Visit Adam Paul MD [facility] 08/03/22 Office Visit [facility] MD [facility] Showing recent visits within past 365 days and meeting all other requirements Future Appointments Date Type Provider Dept 08/07/23 Appointment Adam [facility] MD [facility] Showing future appointments within next 90 days and meeting all other requirements documented in this encounter Plan of Treatment Upcoming Encounters Date Type Department Care Team (Late st Contact Info) Description 12/23/2024 11:15 AM CDT Office Visit [facility] Medical Group - Family Medicine [facility] [address] [place] [address] Adam Paul MD #2 [facility] [address] [place] [address] 01/31/2025 11:45 AM CDT Office Visit [facility] [place] [address] Rayshawn Umanzor MD #2 [facility] [address] [place] [address] documented as of this encounter Visit Diagnoses Not on filedocumented in this encounter Additional Health Concerns Assessment Noted Time PHQ-9 Depression Total Score: 0 11/26/19 20 9:00 AM CDT documented as of this encounter Care Teams Multimedia Services Manager Relationship Specialty Start Date End Date Adam Paul MD #2 [facility] [address] [place] [address] PCP - General Family Medicine 02/19/15 Robby Salinas MD #2 [facility] [address] [place] [address] Consulting Physician Orthopaedic Sports Medicine 04/18/16 Rayshawn Umanzor MD #[address] [facility] [facility] [address] [place] [address] Consulting Physician Urology 03/17/23 Ra Shell MD #2 [facility] [address] [place] [address] Consulting Physician Colon and Rectal Surgery 06/08/23 documented as of this encounter
--- OUTSIDE RECORDS SUMMARY | 2024-12-20 13:02 | XMS_ITS | Encounter Summary ---
Author Organization [facility] Address [address] [facility] [place] [address] Phone Care Team Providers Care Maintenance Clerk Name Role Phone Adam Paul MD Primary Care Provider [phone] Robby Salinas MD Unavailable Rayshawn Umanzor MD Unavailable [phone] Ra Shell MD Unavailable Reason for Visit * Reason Comments Medication Refill Encounter Details Date Type Department Care Team (Late st Contact Info) Description 04/12/2020 Refill [facility] Medical Group - Family Medicine [facility] #2 [place] [address] Adam Paul MD #[address] [address] Medication Refill Social History Tobacco Use Types [...] Telephone Encounter - Lisbeth Kapoor RN - 04/13/2020 10:19 AM CST Medication failed the protocol, provider to review and approve the medication order if appropriate. Requested Prescriptions Pending Prescriptions Disp Refills tiZANidine (ZANAFLEX) 4 MG Tablet [Pharmacy Med Name: TIZANIDINE HCL 4 MG TABLET] 60 Tab Sig: TAKE 1 TABLET BY MOUTH TWICE A DAY Not Delegated - Analgesics: Muscle Relaxants Failed - 04/12/2020 9:01 AM Failed - This refill cannot be delegated Passed - Valid encounter within last 6 months Past Office Visits Recent Outpatient Visits 1 month ago Chronic joint pain [facility] Adam Veras MD 4 months ago Rectal pain [facility] Adam Veras MD 12 months ago Anxiety [facility] Adam Veras MD 1 year ago Chronic neck pain [facility] Adam Veras MD 1 year ago Nausea [facility] Adam Veras MD Upcoming Appointments Future Appointments In 1 month Adam Paul MD [facility] Recent and Past Visits Recent Visits [...] authorizing provider and meeting all other requirements TH INSPECTOR documented in this encounter Plan of Treatment Upcoming Encounters Date Type Department Care Team (Late st Contact Info) Description 12/23/2024 11:15 AM CDT Office Visit [facility] - [place] [address] [facility] [place] [address] Adam Paul MD [facility] [address] [place] [address] 01/31/2025 11:45 AM CDT Office Visit [facility] [address] [facility] [place] [address] Rayshawn Umanzor MD [facility] [address] [place] [address] documented as of this encounter Visit Diagnoses Not on filedocumented in this encounter Additional Health Concerns Assessment Noted Time PHQ-9 Depression Total Score: 0 11/26/19 20 9:00 AM CDT documented as of this encounter Care Teams Maintenance Clerk Relationship Specialty Start Date End Date Adam Paul MD [facility] [address] [place] [address] PCP - General Family Medicine 02/19/15 Robby Salinas MD [facility]2 [facility] [address] [place] [address] Consulting Physician Orthopaedic Sports Medicine 04/18/16 Rayshawn Umanzor MD #2 [facility] [facility] [address] [place] [address] Consulting Physician Urology 03/17/23 Ra Shell MD [address] [address] Consulting Physician Colon and Rectal Surgery 06/08/23 documented as of this encounter
--- NOTE | 2024-12-20 13:39 | ECG_ITS ---
Test Date: 2024-12-20 13:53:51 Measurements Intervals [place] Rate: 72 P: 52 MT: 167 QRS: 16 QRSD: 92 T: 10 QT: 382 QTc: 419 Interpretive Statements SINUS RHYTHM NORMAL ELECTROCARDIOGRAM No previous ECG available for comparison Electronically Signed On 12-21-2024 08:27:18 CDT by J Luis Carranza M.D.
[2024-12-20 14:02] LABS: Hematocrit 42.9 % (42.0-52.0); Hemoglobin 14.3 g/dL (14.0-18.0); Mean Corpuscular HGB Conc 33.3 g/dl (32-36); Mean Corpuscular Hemoglobin 29.1 pg (26-34); Mean Corpuscular Volume 87.2 fl (80-100); Platelet Count Result 286 k/mm3 (150-375); Red Blood Count 4.92 M/mm3 (4.6-6.20); White Blood Count 8.8 K/mm3 (4.5-10.0)
[2024-12-20 14:03] LABS: Add Urine Microscopic? NO; Appearance Urine Clear (Clear); Glucose Urine UA Negative (Negative); Leukocyte Esterase Ur Negative LEU/UL (Negative); Nitrate Urine Negative (Negative); Specific Grav Ur 1.015 (1.001-1.035)
[2024-12-20 14:15] LABS: INR 1.0; Prothrombin Time 13.4 Seconds (11.1-14.7)
[2024-12-20 14:16] LABS: Partial Thromboplastin Time 28.9 Seconds (22.3-36.8)
[2024-12-20 14:22] LABS: Anion Gap 9 mmol/L (4-12); Blood Urea Nitrogen 9 mg/dL (9-20); Calcium 9.4 mg/dL (8.4-10.2); Carbon Dioxide 29 mmol/L (22-30); Chloride 100 mmol/L (98-107); Estimated Glomerular Filt Rate > 60; Glucose 96 mg/dL (65-110); Potassium 3.9 mmol/L (3.4-5.0); Sodium 138 mmol/L (137-145)
== END 2024-12-20 12:57 | disposition home or self-care (01) ==
LOC: ANHSURGERY 12:59
PROVIDERS: PCP Family Medicine; Visit Provider Neurological Surgery
DX: M51.26 Other intervertebral disc displacement, lumbar region (principal); M54.16 Radiculopathy, lumbar region; E78.5 Hyperlipidemia, unspecified; Z01.818 Encounter for other preprocedural examination
CPT/HCPCS: 36415; 80048; 81003; 85027; 85610; 85730; 86850; 86900; 86901; 93005

== ENCOUNTER 2024-12-31 09:48 | Inpatient (IN) | payer MEDICARE, SELFPAY ==
[2024-12-20 13:15] VITALS: BP 122/84; PULSE 78; RESP 16; TEMP 37.1; O2SAT 98; BMI 38.2
--- NOTE | 2024-12-20 13:32 | PC.NURSE ---
[facility] has started construction of its new state of the art ER which will open Spring 2026. With this, we anticipate parking may be a challenge for some our surgical patients and families. Parking spaces are limited but are available for all Surgical, obstetrics, and ER patients sharing this lot. If you arrive and find you are having a hard time finding a parking space, please note that we understand the challenges, please drive around the hospital and park near Hospital Entrance 1. When you enter this entrance, you can ask a volunteer to direct or take you back to the surgical waiting area to check in. We appreciate everyone?s understanding of these expected challenges while we build for your future. Report to the Outpatient Waiting Room, entrance under the green pavilion located off [address], at time ____06:00am___ on date . Planned Procedure Time: _07:30am .? Time changes happen often and if your time is changed the preop area will call you the afternoon before. - You and your visitor will be asked to self-screen and do not enter if you have any COVID symptoms. Please call surgeon if you need to reschedule. - A mask is optional within the hospital at this time. Patients may have clear liquids (water, carbonated beverages, clear teas, apple juice) until 3 hours prior to surgery with a maximum of 20 ounces. - No food from midnight until time of surgery and no smoking, or chewing tobacco (or any form of nicotine). No chewing gum, candy or mints. (0430am) Take only the following medications with a SIP of water on the morning of surgery: Gabapentin, Hydrocodone and Meclizine as needed DO NOT STOP ANY OF YOUR OTHER PRESCRIPTION MEDICATIONS PRIOR TO SURGERY EXCEPT THE FOLLOWING Hold all vitamins and supplements for 3 days per anesthesiologist. Medications to discontinue per physician ____NONE Date to take last dose NONE Please no make-up, nail guinean, hairspray, perfume, deodorant, or body powder the day of surgery.? No jewelry (including any body piercings) or valuables the day of surgery, leave them at home.? Please take a shower or bath the night before, or the morning of, surgery with an antibacterial soap.? Wear comfortable, loose fitting clothing.? Bring Overnight bag, shoes, and phone/chrgr - Jewelry must be removed prior to entering the operating room.? Rings and piercings that are not removed may be cut off. - The hospital will not accept responsibility for valuables.? - Please leave all valuables, including medications, at home the day of surgery. If you are going home after surgery, a licensed fence post driver must drive you home.? - NO public transportation without another adult if you receive anesthesia. - We recommend that an adult stay with you for 24 hours following discharge. - We also recommend that you do not drive, make important decision, drink alcoholic beverages, or take any drugs that were not prescribed by your health care provider for at least 24 hours after your discharge time. Follow any additional instructions given to you from your surgeon. Telephone instructions given to _Patient and asked if any additional questions and then verbalized understanding. Patient advised to call surgeon office or pre surgery nurse liaison [phone] if any additional questions.
[2024-12-31] VITALS (15 sets, daily range): BP systolic 103–139; BP diastolic 62–91; PULSE 73–101; RESP 13–20; TEMP 35.6–36.6; O2SAT 93–99; BMI 37.8
--- NOTE | ~2024-12-31 | XR_ITS ---
EXAMINATION: XR fluoroscopy no charge DATE: 12/31/2024 10:40 INDICATION: L3-L4 posterior lumbar interbody fusion TECHNIQUE: 3 fluoroscopic images of the lumbar spine were obtained during procedure performed by Dr. Warren. Radiologist was not present for the imaging or procedure. The amount of fluoroscopy time used during this procedure was 0.1 minutes. Total DAP was 1.378 Gycm^2. COMPARISON: 07/11/2023 FINDINGS: Images demonstrate postoperative changes of prior L3 laminectomy with tissue retractors and lucent gas at the operative bed. Combined L3-L4 instrumented anterior and posterior spinal fusion with interbody fusion device and bilateral vertical casey and pedicle screw fixation. IMPRESSION: 1. Fluoroscopy utilized during L3 laminectomy and instrumented L3-L4 anterior and posterior spinal fusion. See procedure note for further detail. Reviewed, dictated and finalized at location A. IMPRESSION: 1. Fluoroscopy utilized during L3 laminectomy and instrumented L3-L4 anterior a nd posterior spinal fusion. See procedure note for further detail.
[2024-12-31] MEDS: LACTATED RINGERS 1,000 ML 30 ML IV CONT ×2 (06:45→10:30)
--- NOTE | 2024-12-31 07:34 | WPDANESEPPF ---
Anes - Initial Pre Proc Eval Procedure: Operation Date: 12/31/24 07:30 Proposed Procedures p L3-4, Posterior Lumbar Interbody Fusion - Jesus Warren MD Date/Time: 12/31/24 07:34 Surgeon: Jesus Warren MD Pre Op Diagnosis: lumbar disc herniation Patient Data Age: 49 Gender: M Height: 1.7 m Weight: 110.7 kg Last Vital Signs Temp 98.7 F 12/20/24 13:15 Pulse 78 12/20/24 13:15 Resp 16 12/20/24 13:15 BP 122/84 12/20/24 13:15 Pulse Ox 98 12/20/24 13:15 O2 Del Method Room Air 12/20/24 13:15 Allergies Allergy/AdvReac Type Severity Reaction Status Date / Time adhesive Allergy Mild Rash Verified 12/31/24 07:17 iodine Allergy Mild Rash Verified 12/31/24 07:17 NSAIDS (Non-Steroidal AdvReac Severe Anaphylaxis Verified 12/31/24 07:17 Anti-Inflamma Home Medications ?Medication ?Instructions ?Recorded ?Confirmed ?Type meclizine 25 mg tablet 25 mg PO BID PRN Vertigo 01/10/22 12/20/24 History rosuvastatin 10 mg tablet 10 mg PO DAILY 01/10/22 12/20/24 History gabapentin 400 mg capsule 400 mg PO TID 04/05/23 12/20/24 History montelukast 10 mg tablet 10 mg PO DAILY PRN allergic 01/23/24 12/20/24 History symptoms hydrocodone 5 mg-acetaminophen 325 1 tablet PO Q4H PRN pain #30 tabs 12/19/24 12/20/24 Rx mg tablet desmopressin 0.2 mg tablet 0.2 mg PO .PM 12/20/24 12/20/24 History ropinirole 0.25 mg tablet 0.25 mg PO .PM 12/20/24 12/20/24 History tamsulosin 0.4 mg capsule (Flomax) 0.4 mg PO .HS 12/20/24 12/20/24 History Patient hx anesthesia problems: other (As noted in my preop eval, low BP and stopped breathing (likely in PACU). ) Family hx anesthesia problems: none Results Review: All pre-operative results and documents have been reviewed as part of the pre-operative evaluation. [facility] Past Medical History Medical History Lumbar back pain with radiculopathy affecting right lower extremity High cholesterol Anxiety Asthma Family History Family History Other Asthma Depression Heart disease Hypertension Social History Social History Smoking status: Current some day smoker Smokeless tobacco user: chewing tobacco Alcohol intake: never Substance use: never Substance use type: does not use Do You Feel Safe in your Home?: Yes Lack of Transportation: No Lack of Food: Never True Current Housing: I Have Housing Concerned About Future Housing: No Difficulty Paying Gas/Electric Bills: No Difficulty Paying for Meds: No Currently Unemployed: No Education: High School Diploma/GED Difficulty w/ Childcare or Family Care: No Living arrangements: with family Spiritual care concerns: No Anes - Eval Final PreProcedure Day of Procedure 12/31/24 07:34 Patient weight: obese Lungs: normal air movement Airway: Mallampati scale class II Neurological: alert and oriented Last oral intake: >/= 8 hours ASA classification: III Emergent: no Anesthetic plan: proceed Anesthesia type and monitoring: general ETT and standard monitoring Results Review: All pre-operative results and documents have been reviewed as part of the pre-operative evaluation. Hyperlipidemia, pt chews tobacco. Chronic pain noted, this year had TKR. BMI 38. Pt and report pt stopped breathing/low BP in PACU after TKR, sounds as if he had poorly controlled pain and pain meds there and then complications. Full lengthy discussion w pt and his daughter in regard to this as I do not have access to records. Informed Consent: The patient's anesthetic plan and its attendant risks and benefits were discussed with the patient/family/POA. Questions were solicited and answers provided to the satisfaction of the patient/family/POA.
--- NOTE | 2024-12-31 07:54 | P.HP_ITS ---
H&P: HPI History of Present Illness Date/Time: 12/31/24 07:54 Chief Complaint: Back and leg pain Narrative: Adolfo Ruiz is here in follow-up of his back and leg pain. Most of the pain is in his back. He saw Dr. Will (Orthopedic Surgery) for his hip. He had x-rays and an MRI of his hip as well as an injection in his hip which was not helpful for him in any way. He was told that there is nothing more that they can do for him regarding his hip pain. He has pain in his low back on both sides but mainly on the right that radiates down his right leg which he states feels like he is being electrocuted. He is having some difficulty walking and states that he favors the right side when he walks and that his ankle rolls in when he walks. He has pain in his right hip/leg when he bears weight on the right leg. His back pain is constant; that is, it is there all the time and never completely goes away. The pain wakes him up from sleep multiple times throughout the night and when this occurs, he has to get up out of bed and walk around. This seems to help but again, this does not resolve his pain as it never completely goes away regardless of what he is doing. he had an MRI of his brain since we last saw him to rule out multiple sclerosis. This was not discovered. He is not having any new bowel or bladder difficulty or other constitutional problems at this time. His pain is curiously happening on the left as well as on the right. He is on gabapentin and not sure this helps him very much. He underwent an EMG/NCS which was normal. His symptoms are somewhat vague and difficult to define but the back and right and left lower extremity pain is a consistent feature of his problem. He is here to discuss potential surgical management of his low back issues. he had his knee replacement performed and is doing well from that standpoint. Review of Systems Review of Systems: All systems reviewed & are unremarkable except as noted in HPI and below Denies chills, Denies fever(s), Denies weakness, Denies weight gain and Denies weight loss Eyes Denies change in vision and Denies diplopia ENT Denies disequilibrium Card Denies chest pain and Denies dyspnea Resp Denies cough and Denies dyspnea GI Denies abdominal pain, Denies change in bowel habits, Denies fecal incontinence and Denies vomiting Denies hematuria, Denies oliguria, Denies difficulty urinating, Denies dysuria, Denies urinary frequency, Denies urinary hesitancy, Denies urinary incontinence and Denies urinary urgency Musc Reports as per HPI, Reports back pain, Denies muscle weakness, Denies numbness and Reports stiffness Skin/ Breast Reports system reviewed and no additional complaints, except as documented Neuro Reports as per HPI, Denies numbness, Reports radicular pain, Denies disequilibrium and Denies weakness Psych Reports no additional complaints, Denies depression and Denies hopelessness Endo Reports no additional complaints and Denies polyuria Jack/ Lymph Reports no additional complaints Aller/ Immun Reports no additional complaints PMFSH Past Medical History Medical History Lumbar back pain with radiculopathy affecting right lower extremity High cholesterol Anxiety Asthma Family History Family History Other Asthma Depression Heart disease Hypertension Social History Social History Smoking status: Current some day smoker Smokeless tobacco user: chewing tobacco Alcohol intake: never Substance use: never Substance use type: does not use Do You Feel Safe in your Home?: Yes Lack of Transportation: No Lack of Food: Never True Current Housing: I Have Housing Concerned About Future Housing: No Difficulty Paying Gas/Electric Bills: No Difficulty Paying for Meds: No Currently Unemployed: No Education: High School Diploma/GED Difficulty w/ Childcare or Family Care: No Living arrangements: with family Spiritual care concerns: No Meds Home Medications and Allergies Home Medications ?Medication ?Instructions ?Recorded ?Confirmed ?Type meclizine 25 mg tablet 25 mg PO BID PRN Vertigo 01/2212/20/24 History rosuvastatin 10 mg tablet 10 mg PO DAILY 01/10/2212/02 History gabapentin 400 mg capsule 400 mg PO TID 04/05/2312/20 History montelukast 10 mg tablet 10 mg PO DAILY PRN allergic 01/23/24 12/20/24 History symptoms hydrocodone 5 mg-acetaminophen 325 1 tablet PO Q4H PRN pain #30 tabs 12/19/24 12/20/24 Rx mg tablet desmopressin 0.2 mg tablet 0.2 mg PO .PM 12/20/2412/02 History ropinirole 0.25 mg tablet 0.25 mg PO .PM 12/20/2412/02 History tamsulosin 0.4 mg capsule (Flomax) 0.4 mg PO .HS 12/2012/20/24 History Allergies Allergy/AdvReac Type Severity Reaction Status Date / Time adhesive Allergy Mild Rash Verified 12/31/24 07:17 iodine Allergy Mild Rash Verified 12/31/24 07:17 NSAIDS (Non-Steroidal AdvReac Severe Anaphylaxis Verified 12/31/24 07:17 Anti-Inflamma Vital Signs Vital Signs - 24 hr 12/31/24 06:10 Temperature 97.7 F Pulse Rate 76 Respiratory Rate 16 Blood Pressure 131/87 Pulse Oximetry 97 Oxygen Delivery Room Air Exam Narrative: Exam Exam Const Other: General: cooperative, no acute distress, well developed, alert and awake Orientation/Consciousness: oriented to person, oriented to place and oriented to time Constitutional Limitations: no limitations Other: The patient is a normally developed, normal appearing male sitting on the examination table in no acute distress. He is awake, alert, and oriented x3 with good fund of knowledge, recall of events, and fluent speech. [facility] Head: normocephalic and atraumatic Ears: external ears normal Face/Nose/Sinus: Normal external nose present Eyes Eyelids: eyelids normal Pupils: Yes Pupils normal by confrontation EOM: EOMs intact bilaterally Neck General: Yes no meningeal signs, Yes supple and Yes no JVD Resp Effort/Inspection: normal respiratory effort and able to speak in complete sentences Cardio Rate: Yes regular rate GI Inspection: No abdominal distension Musc Other: Examination of the back reveals diffuse lumbar tenderness. Range of motion of the back is limited and painful in forward flexion, extension, and lateral rotation. Straight leg raise is negative bilaterally. Ronal?s test is negative bilaterally. Skin General: normal color Neuro General: Yes oriented to person, Yes oriented to place, Yes oriented to time, Yes normal cognition and Yes no meningeal signs Cranial Nerves: Yes CN's II-XII intact bilaterally Other: Motor: Strength is normal (5/5) throughout all muscle groups of the bilateral lower extremities to direct confrontation. Sensory: Sensation is intact to light touch throughout the lower extremities bilaterally. Reflexes: Deep tendon reflexes are difficult to elicit at the knees and ankles bilaterally. There is no ankle clonus. Gait: Gait, station, and transfers are independent and steady for short periods of time and over short distances. Psych Appearance: grossly normal Mental status: Yes mental status grossly normal Mood: congruent mood Affect: Yes normal affect Speech/Movement: Normal speech and movement present Attitude: Yes cooperative Thought Content: Normal thought content present Assessment and Plan Assessment and plan (1) Lumbar disc herniation: Code(s): M51.26 - Other intervertebral disc displacement, lumbar region Status: Acute Plan Mr. Ruiz is a 49-year-old gentleman with back and leg pain that may be related to the recurrent pathology at L3-4 where there are postoperative changes and a potential recurrent disc herniation extending into the foramen. I have recommended him L3-4 posterior lumbar interbody fusion and described to him that operation, its risks, potential benefits, the operative and postoperative course in detail and answered all his questions personally. We discussed risks including but not limited to permanent neurologic deficit secondary to nerve root injury, need for reoperation secondary to infection, bleeding, CSF leak, adjacent level disease, recurrent or residual pathology, instability, malposition or migration of the hardware or nonunion, failure of the procedure to relieve his pain or symptoms, persistent pain, medical complications related to anesthesia or surgery, etc.. He indicates understanding and elects to proceed with the operation.
--- NOTE | 2024-12-31 07:56 | WPDHPUPDATE1 ---
History and Physical Update Update Date/Time: 12/31/24 07:56 History and Physical has been reviewed, including an updated exam of the patient. There are NO changes in the patient's condition. Risks, benefits, and alternatives have been discussed and questions answered. Patient agrees to proceed with procedure.
[2024-12-31] MEDS: ceFAZolin 2 GM in SODIUM CHLORIDE 0.9% IV 50 ML 100 ML IVPB ×2 (07:59→17:02)
[2024-12-31] MEDS: LIDO 1%/EPINEPHRINE 1:100,000 20 ML VIAL 10 ML INFILTRATE (09:08)
[2024-12-31] MEDS: fentaNYL CITRATE INJ (*CRX) 100 MCG/2 ML VIAL 25 MCG IV PUSH ×8 (10:47→11:12)
--- NOTE | 2024-12-31 10:50 | W.PM.PROC2 ---
Procedure Note - Detailed Date of Procedure 12/31/24 Pre-op Diagnosis lumbar disc herniation Post-op Diagnosis Same Procedure Performed L3-4 complete laminectomy bilateral facetectomy, L3-4 complete diskectomy and interbody arthrodesis utilizing titanium interbody devices local autograft, L3-4 pedicle screw instrumentation Surgeon Jesus Warren MD Anesthesia General Description of Procedure Patient was brought to the operating room in the supine position, was sedated, intubated placed under general anesthesia in routine fashion. Was then turned into the prone position on a Mayo frame. There operation on his back was examined, marked for incision, prepped and draped in routine sterile fashion. Incision was marked over the L3 and L4 spinous processes in the midline. This area was injected with 0.5% lidocaine with [id number] epinephrine. Intravenous antibiotics given prior to incision. Incision was made with a 10 blade scalpel down to the lumbodorsal fascia. A subperiosteal dissection of the muscle soft tissue away from spinous process lamina at L3 and L4 bilaterally was performed with a subperiosteal elevator and Bovie cautery. A verifying x-rays obtained to verify the level of operation. The L3 spinous process was removed with the Ward rongeur. Kerrison punches, curved curettes and Leksell rongeur were used to remove lamina in the midline and to the soft contents of the canal were encountered. A Midas Gaetano drill was used to resect the pars bilaterally at L3. The inferior articular process and facet of L3 could then be removed bilaterally. These post the spinous processes worse for few soft tissue morselized for later use as interbody autograft. Kerrison punches and curved curettes were used to define a plane with the dura removed bone ligament flush the pedicle and through the foramina widely decompressing the exiting nerve roots. With the thecal sac retracted and protected the disc space was entered bilaterally using an 11 blade scalpel. Scrapers very sizes, curettes of various configurations, pituitary rongeur and a rasp were used to remove as much cartilaginous endplate and disc material as possible down to bleeding cortical flat surfaces on the opposing bones. The disc spaces are sized a 9 mm interbody devices were chosen and filled with local autograft bone. The disc space was likewise filled with local autograft bone medially anteriorly. The interbody devices were then placed 2-3 mm countersink within the disc space bilaterally. Pedicle screw instrumentation was performed by observing palpating the pedicle wall a hole was made and spear take the process above the pedicle using a Midas Gaetano drill. The pedicle was then cannulated with a pedicle probe, checked continuity with the ball probe, tapped the 5.5 mm tap and a 6.5 x 50 mm screw was placed in each pedicle on each side. Cullen placed in the screw heads on either side and secured in position caps that purpose. A verifying x-rays obtained to verify good position of the instrumentation which was confirmed. The wound was copiously irrigated with bacitracin irrigation all bleeding stopped with bipolar and Bovie cautery and Gelfoam thrombin powder. A medium Hemovac drain was left in the subfascial position buried out to the inferior right of the incision. The wound was then closed in layered fashion with 2-0 Vicryl interrupted sutures in the lumbodorsal fascia and Aj's layer. 3-0 Vicryl buried interrupted sutures were placed in the dermis and the skin was closed with a running 4-0 Monocryl subcuticular stitch and dressed with Dermabond. Patient was allowed to wake up in the operating room was taken to the recovery room in stable condition. There were no immediate complications of this operation. All counts reported correct at the end of the case. Blood loss was 200 cc. The patient was neurologically at his baseline postoperatively. CPT codes: 20921, 53774, 43878, 38556, 19567. Estimated Blood Loss 200 Drains Yes Complications None Condition Stable Disposition PACU
[2024-12-31] MEDS: HYDROmorphone HCL INJ (*CRX) 1 MG/ML SYR 0.25 MG IV PUSH ×4 (11:02→11:25)
[2024-12-31] MEDS: diazePAM INJ (*CRX) 10 MG/2 ML SYRINGE 2 MG IV PUSH ×2 (11:35→12:01)
[2024-12-31] MEDS: oxyCODONE HCL (*CRX) 5 MG TAB IR PO (11:45)
[2024-12-31] MEDS: KCL 20 MEQ/D5/0.45% SOD CHL 1,000 ML 100 ML IV CONT (13:14)
[2024-12-31] MEDS: HYDROmorphone HCL INJ (*CRX) 1 MG/ML SYR 0.5 MG IV PUSH ×2 (13:17→21:37)
[2024-12-31] MEDS: GABAPENTIN 400 MG CAPSULE PO ×2 (13:17→21:09)
--- NOTE | 2024-12-31 13:27 | ADMGEN ---
This patient, Adolfo Ruiz, was admitted to [facility] Surg Room 301-01. Patient/family oriented to hospital policies and general routines including ID bracelet, bed and alarms, visiting hours, pain management, procedures, bathroom and other care routines, personal items, smoking policy, room service/diet, and visiting hours. Information on how to activate the Rapid Response Team has been discussed. Patient/Family are encouraged to report perceived risks to care and to ask questions if they do not understand what they are told or what they should do.
[2024-12-31] MEDS: HYDROcodone/acetaminophen (*CRX) 10-325 MG TABLET 1 TAB PO ×2 (14:46→21:36)
[2024-12-31] MEDS: DESMOPRESSIN ACETATE 0.1 MG TABLET 0.2 MG PO (17:03)
[2024-12-31] MEDS: TAMSULOSIN HCL 0.4 MG CAPSULE PO (21:09)
[2024-12-31] MEDS: DOCUSATE SODIUM 100 MG CAPSULE PO (21:09)
[2025-01-01 03:32] VITALS: BP 145/86; PULSE 80; RESP 18; TEMP 36.1; O2SAT 98
[2025-01-01] MEDS: ceFAZolin 2 GM in SODIUM CHLORIDE 0.9% IV 50 ML 100 ML IVPB (04:21)
[2025-01-01] MEDS: HYDROcodone/acetaminophen (*CRX) 10-325 MG TABLET 1 TAB PO ×3 (04:27→12:58)
[2025-01-01] MEDS: KCL 20 MEQ/D5/0.45% SOD CHL 1,000 ML 100 ML IV CONT (04:28)
[2025-01-01] MEDS: HYDROmorphone HCL INJ (*CRX) 1 MG/ML SYR 0.5 MG IV PUSH (05:21)
[2025-01-01] MEDS: GABAPENTIN 400 MG CAPSULE PO ×2 (05:35→13:00)
[2025-01-01 07:00] VITALS: BP 137/89; PULSE 83; RESP 18; TEMP 36.2; O2SAT 98
[2025-01-01] MEDS: DOCUSATE SODIUM 100 MG CAPSULE PO (08:20)
[2025-01-01 11:28] VITALS: BP 107/59; PULSE 88; RESP 18; TEMP 36.5; O2SAT 100
[2025-01-01 14:02] VITALS: BP 113/70; PULSE 87; RESP 18; TEMP 36.9; O2SAT 99
--- NOTE | 2025-01-01 16:13 | WPDNEUROSGPN ---
Progress Note: A&P Assessment and Plan (1) Status post lumbar spinal arthrodesis: Code(s): Z98.1 - Arthrodesis status Status: Acute Plan -Remove hemovac drain -Discharge home today -Wound care and activity precautions reviewed at bedside -Follow up in clinic as scheduled Subjective Date/time seen: 01/01/25 16:13 Interval history: Doing well with expected back pain but no leg pain. Ambulated in halls without difficulty. Voiding independently. Tolerating oral intake. He wants to go home Review of Systems Review of Systems: All systems reviewed & are unremarkable except as noted in HPI and below Exam Narrative: AOx4 Incision c/d/i full strength in lower extremities Sensation intact to light touch Objective Data Vital Signs Vital Signs: Vital Signs - 24 hr 12/31/24 21:09 12/31/24 23:32 01/01/25 03:32 Temperature 97.9 F 97.0 F L Pulse Rate 79 80 Respiratory Rate 18 18 Blood Pressure 117/75 145/86 H Pulse Oximetry 99 98 Oxygen Delivery Room Air 01/01/25 07:00 01/01/25 08:00 01/01/25 11:28 Temperature 97.1 F L 97.7 F Pulse Rate 83 88 Respiratory Rate 18 18 Blood Pressure 137/89 107/59 L Pulse Oximetry 98 100 Oxygen Delivery Room Air 01/01/25 14:02 Temperature 98.4 F Pulse Rate 87 Respiratory Rate 18 Blood Pressure 113/70 Pulse Oximetry 99 Oxygen Delivery Intake/Output Intake/Output: Intake & Output 12/29/24 12/30/24 12/31/24 01/01/25 23:59 23:59 23:59 23:59 Intake Total 2640 940 Output Total 245 Balance 2395 940 Meds/Results Medications: Active Medications Generic Name Dose Route Start Last Admin Trade Name Freq PRN Reason Stop Dose Admin Hydrocodone Bitart/Acetaminophen 1 tab 12/31/24 12:32 Hydrocodone/Acetaminophen (*Crx) 5-325 Mg Tablet PO Q4H PRN Mild Pain (1-3) Hydrocodone Bitart/Acetaminophen 1 tab 12/31/24 12:32 01/01/25 12:58 Hydrocodone/Acetaminophen (*Crx) 10-325 Mg Tablet PO 1 tab Q4H PRN Administration Moderate Pain (4-6) Al Hydrox/Mg Hydrox/Simethicone 20 ml 12/31/24 12:32 Mag Hydrox/Al Hydrox/Simeth 30 Ml Udc PO Q4H PRN Indigestion/Heartburn Bisacodyl 10 mg 12/31/24 12:32 Bisacodyl 10 Mg Suppository RECTAL DAILY PRN Constipation Cyclobenzaprine HCl 10 mg 12/31/24 12:32 Cyclobenzaprine Hcl 10 Mg Tablet PO TID PRN Muscle Spasms Desmopressin Acetate 0.2 mg 12/31/24 18:00 12/31/24 17:03 Desmopressin Acetate 0.1 Mg Tablet PO 0.2 mg EVENING NATA Administration Docusate Sodium 100 mg 12/31/24 21:00 01/01/25 08:20 Docusate Sodium 100 Mg Capsule PO 100 mg Q12HR NATA Administration Gabapentin 400 mg 12/31/24 14:00 01/01/25 13:00 Gabapentin 400 Mg Capsule PO 400 mg Q8HR NATA Administration Hydromorphone HCl 0.5 mg 12/31/24 12:32 01/01/25 05:21 Hydromorphone Hcl Inj (*Crx) 1 Mg/Ml Syr IV PUSH 0.5 mg Q2H PRN Administration Pain Rated 7-10 Cefazolin Sodium 2 gm/ Sodium 50 mls @ 100 mls/hr 12/31/24 16:00 01/01/25 04:21 Chloride IVPB 100 mls/hr Q12H NATA Administration Potassium Chloride/Dextrose/Sod Cl 1,000 mls @ 100 mls/hr 12/31/24 12:32 01/01/25 04:28 Kcl 20 Meq/D5/0.45% Sod Chl IV CONT 100 mls/hr .Q10H NATA Administration Meclizine HCl 25 mg 12/31/24 12:32 Meclizine Hcl 25 Mg Tablet PO BID PRN Vertigo Montelukast Sodium 10 mg 12/31/24 12:32 Montelukast Sodium 10 Mg Tablet PO DAILY PRN Allergic Symptoms Ondansetron HCl 4 mg 12/31/24 12:32 Ondansetron Inj 4 Mg/2 Ml Vial IV PUSH Q8H PRN Nausea And Vomiting Ropinirole HCl 0.25 mg 12/31/24 18:00 12/31/24 17:03 Ropinirole Hcl 0.25 Mg Tablet PO 0.25 mg EVENING NATA Administration Rosuvastatin Calcium 10 mg 01/01/25 21:00 Rosuvastatin 10 Mg Tablet PO HS NATA Senna/Docusate Sodium 1 tab 12/31/24 12:32 Senna/Docusate Sodium Tablet PO HS PRN Constipation Tamsulosin HCl 0.4 mg 12/31/24 21:00 12/31/24 21:09 Tamsulosin Hcl 0.4 Mg Capsule PO 0.4 mg HS NATA Administration Radiology Results: ITS Impressions Fluoroscopy 12/31/24 10:44 IMPRESSION: 1. Fluoroscopy utilized during L3 laminectomy and instrumented L3-L4 anterior and posterior spinal fusion. See procedure note for further detail.
[2025-01-01] MEDS: DESMOPRESSIN ACETATE 0.1 MG TABLET 0.2 MG PO (17:09)
[2025-01-01] MEDS: HYDROcodone/acetaminophen (*CRX) 5-325 MG TABLET 1 TAB PO (17:09)
--- NOTE | 2025-01-19 18:54 | PM.DS ---
DS: Admitting Diagnosis Discharge Date 01/01/25 Admitting Diagnosis recurrent disc herniation, L3-4 DS: Discharge Diagnosis Discharge Diagnosis (1) Lumbar disc herniation: Code(s): M51.26 - Other intervertebral disc displacement, lumbar region Status: Acute DS: Summary Hospital Course Hospital Course: Adolfo was taken the operating room on 12/31/2024 were and L3-4 posterior lumbar interbody fusion was performed without complication. physical and occupational curettes therapy were involved in his care. On postoperative day 1 his Ramirez catheter in drain removed. He was eating, ambulating, emptying his bladder his pain was under control with by mouth pain medicine. His wound remained clean, dry and intact. He was therefore allowed to be discharged home. Time Spent with Patient Time attestation: Total time spent providing and/or coordinating discharge services: Discharge Plan Discharge Consulting providers: Julian Mathew; Lisandra Hale; Panfilo Lucas Discharging Clinician: Lisandra Hale Patient Disposition: Home Activity: other - see discharge instructions Diet: as tolerated Discharge Instructions: INSTRUCTIONS AFTER YOUR LUMBAR FUSION ? Your incision is closed with glue. This will peel off on its own in a couple weeks. ? You may shower and get your incision wet with soap and water starting on post-operative day 3 (Monday). Do not submerge the incision under water (like in a bathtub or swimming pool) for 6 weeks after surgery. Never apply ointments or lotions to the incision. ? The incision should be checked daily. Notify the office if there is drainage, redness, or if you have fever with a temperature of over 101 degrees. ? You are encouraged to walk as much as comfortable, with assistance as needed. For example, it may be beneficial to walk short distances hourly during the waking hours and gradually increase walking during your recovery period. Fatigue can be common. ? Avoid any bending, heavy lifting, or twisting movements. ? You have an bicey-kg-yjo-pound lift restriction until further advised by your physician (a gallon of milk weighs eight pounds). ? Make frequent position changes, avoiding long periods of sitting. Try not to sit more than 60 minutes at a time. ? You may engage in sexual activity in two weeks as tolerated. ? No housework, especially vacuuming, making beds, or doing laundry until seen in the office. ? You may walk stairs carefully. ? Minimize long car rides for the first two weeks. You may resume driving when you feel comfortable; however, you may not drive if still taking narcotic pain medications. ? You should start with Tylenol 1000mg every 6 hours for pain first. If the Tylenol is not effective, you may then take oxycodone. ? The physician may order pain medication and/or muscle relaxers. As time goes by, you should require less of these. Always take your medication as ordered, and only if needed. If you take more than prescribed, it will not be refilled early. If you feel you require narcotic medication refill, kindly give the office a 72-hour notice. No refills are given over the weekend. ? Avoid use of anti-inflammatory medications (like Ibuprofen, Aleve, Advil, Motrin) for up to three months following fusion surgery. Use of these medications may slow healing. ? Resume your usual diet. Constipation is a common problem postop. You may use any over the counter laxative, or stool softener. Always follow the bottle directions. ? Use of nicotine products should be stopped completely. Smoking can slow the healing process significantly. It can also increase the chance for developing postop pneumonias and other complications. Please avoid use of all nicotine products for at least three months after spine surgery. FOLLOW-UP ? Schedule an appointment with your primary care physician in the near future to ensure he/she is aware of your recent hospitalization and surgery and to ensure your other medical issues are being properly managed. This is particularly important to ensure your blood sugars are being well-controlled while you are healing from surgery. For urgent calls after hours, please call our exchange through our office at : ? Call the office for: o Appointment set up. o Fever greater than 101 degrees. o Increased pain, swelling, redness or drainage from your incision. o Trouble swallowing or breathing. o Pain, swelling or weakness of your legs. o Any other question or concerns you may have. Jesus Warren MD Neurosurgery [facility] [address], [place] [address] Patient Instructions: Antibiotic Form Patient Language: Turkish Stand Alone Forms: General Discharge Information Follow-up/Referrals: Jesus Warren MD [Physician, Neurosurgery] Discharge Medications: New cyclobenzaprine 10 mg Tablet 10 mg PO TID PRN (Reason: Muscle Spasms) 10 Days Qty: 30 0RF sennosides-docusate sodium [Senokot-S] 8.6-50 mg Tablet 1 tab-cap PO BID 10 Days Qty: 20 0RF Continued gabapentin 400 mg capsule 400 mg PO TID meclizine 25 mg tablet 25 mg PO BID PRN (Reason: Vertigo) rosuvastatin 10 mg tablet 10 mg PO DAILY Patient Comments: HS montelukast 10 mg tablet 10 mg PO DAILY PRN (Reason: allergic symptoms) tamsulosin [Flomax] 0.4 mg capsule 0.4 mg PO .HS desmopressin 0.2 mg tablet 0.2 mg PO .PM ropinirole 0.25 mg tablet 0.25 mg PO .PM Held hydrocodone-acetaminophen 5-325 mg tablet 1 tablet PO Q4H PRN (Reason: pain) Qty: 30 0RF Hold Instructions: Resume on 01/09/25. No Action hydrocodone-acetaminophen 5-325 mg tablet 1 - 2 tablet PO Q6H PRN (Reason: pain) 7 Days Qty: 56 0RF Date of admission: 12/31/24 09:48 Primary Care Provider: Humberto,Adam Barros Admitting Provider: Jesus Warren Attending physician on admission: Jesus Warren Condition: Stable
== END 2025-01-01 17:20 | disposition home or self-care (01) | DRG 451 ==
LOC: ANH3MEDSUR 01-01 09:04
PROVIDERS: Admitting Provider Neurological Surgery; PCP Family Medicine; Visit Provider Neurological Surgery
PROC: 0SG00AJ Fusion of Lumbar Vertebral Joint with Interbody Fusion Device, Posterior Approach, Anterior Column, Open Approach (ICD-10-PCS; CPT 22612; principal; 2024-12-31 07:30)
DX: M51.26 Other intervertebral disc displacement, lumbar region (principal); E78.00 Pure hypercholesterolemia, unspecified; J45.909 Unspecified asthma, uncomplicated; F17.290 Nicotine dependence, other tobacco product, uncomplicated
CPT/HCPCS: 97161; 97166; 97530; 97535; 99199; J0690; A9270; C1713; J1100; J1171; J2004; J2250; J2405; J2704; J3010; J3360; J3480; J7120

== ENCOUNTER 2025-02-18 12:21 | Outpatient (CLI) | payer MEDICARE, SELFPAY ==
--- NOTE | ~2025-02-18 | XR_ITS ---
XR lumbar spine 2-3V Indication: Z98.1 - Arthrodesis status, FOLLOW UP FROM SURGERY IN DEC Comparison: None Findings: Fixation of L3 and L4 with disc prosthesis, no fracture identified. Moderate loss of the remaining disc height throughout. Soft tissues unremarkable Impression: No acute abnormality. Reviewed, dictated and finalized at location [facility] Impression: No acute abnormality.
== END 2025-02-18 12:22 | disposition home or self-care (01) ==
PROVIDERS: PCP Family Medicine; Visit Provider Neurological Surgery
DX: R29.890 Loss of height (principal); Z98.1 Arthrodesis status
CPT/HCPCS: 72100